=== PATIENT | male | born 1935 | race Caucasian/White ===

== ENCOUNTER 2017-04-23 17:30 | Inpatient (IN) | payer MEDICARE ==
[2017-04-23 18:57] LABS: #Eosinphils 0.1 thou/uL (0.0-0.7); #Lymphocytes 1.6 thou/uL (1.20-3.40); #Monocytes 0.6 thou/uL (0.11-0.59); #Neutrophils 3.8 thou/uL (1.40-6.50); %Basophils 0.1 % (0.0-1.0); %Eosinophils 2.2 % (0.0-10.0); %Lymphocytes 26.3 % (21.0-51.0); %Monocytes 9.6 % (0.0-10.0); %Neutrophils 61.8 % (42.0-75.0); Hemoglobin 13.4 g/dL (14.0-18.0); Mean Corpuscular HGB CONC 32.1 g/dL (32.0-36.0); Mean Platelet Volume 7.8 fL (7.4-10.4); Platelet Count 217 thou/uL (130-400); RBC Distribution Width 12.8 % (11.5-14.5); Red Blood Cell (RBC) Count 4.06 mill/uL (4.70-6.10); White Blood Cell (WBC) Count 6.2 thou/uL (4.8-10.8)
[2017-04-23 19:00] LABS: INR-International Normal Ratio 1.1; PTT 22.1 SEC (22.9-36.1)
--- NOTE | 2017-04-23 19:05 | RAD ---
PORTABLE AP CHEST RADIOGRAPH: Date: 04-23-17 History: Dyspnea. Comparison: 07-12-10 FINDINGS: Pleural and parenchymal changes are seen at each lung base which may be related to small bilateral pl eural effusions and atelectasis. However, patchy densities at each lung could potentially be related to pneumonitis. Cardiac silhouette is stable in size from the prior study but is mildly enlarged. The pulmonary vasculature is within normal limits. Thoracic aorta is ectatic. Degenerative changes are p resent in the spine. There are post-surgical changes of the cervical spine as well as visualized uppe r lumbar spine and involving the left shoulder. There is bilateral acromioclavicular joint osteoarthr itis as well as bilateral glenohumeral osteoarthropathy. IMPRESSION: 1. Small bilateral pleural effusions and atelectasis. Superimposed pneumonia at either lung base coul d not be entirely excluded. POS: [facility]
[2017-04-23 19:21] LABS: CKMB 2.6 ng/mL (0-6.6); Troponin I 0.033 ng/mL (< 0.028)
[2017-04-23 20:52] LABS: ALT (SGPT) 27 U/L (8-55); AST (SGOT) 24 U/L (5-34); Albumin 3.9 g/dL (3.4-4.8); Alkaline Phosphatase 57 U/L (40-150); Anion Gap 13 mmol/L (10-20); BUN (Urea Nitrogen) 29 mg/dL (8.4-25.7); Bilirubin, Total 0.4 mg/dL (0.2-1.2); CK (CPK) 229 U/L (30-200); Calc. Creatinine Clearance 0 mL/min (70-130); Calcium 9.7 mg/dL (7.8-10.44); Carbon Dioxide 30 mmol/L (23-31); Chloride 104 mmol/L (98-107); Estimated GFR-MDRD 59; Globulin 3.1 g/dL (2.4-3.5); Glucose 91 mg/dL (83-110); Potassium 3.6 mmol/L (3.5-5.1); Sodium 143 mmol/L (136-145)
[2017-04-23] MEDS ORDERED: Nitroglycerin 2% Ointment 1 INCH/1 GM Packet ONE (22:18)
[2017-04-23] MEDS ORDERED: Furosemide 40 MG/4 ML VIAL ONE (22:18)
[2017-04-23 22:38] LABS: Troponin I 0.042 ng/mL (< 0.028)
--- NOTE | 2017-04-23 22:49 | ULT ---
LEFT LOWER EXTREMITY VENOUS DOPPLER WITH SPECTRAL ANALYSIS AND COLOR FLOW EVALUATION: Date: 04-23-17 History: Shortness of breath. Left lower extremity edema. FINDINGS: Grayscale, color flow, doppler evaluation, and spectral analysis in a left lower extremity venous str uctures is performed with 2D imaging. The left lower extremity common femoral, superficial femoral, p opliteal, posterior tibial, most proximal greater saphenous and profunda femoral veins were obtained. There is normal lumen compressibility, flow, and augmentation in the visualized deep venous structure s of the left lower extremity. There is a lobulated anechoic structures seen at the posteromedial aspect of the left knee measuring 5.8 cm x 2.7 cm x 3.2 cm. Color flow evaluation demonstrates no flow within the structure. There is m inimal internal echogenic material which may be related to a small amount of debris. 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 There is mild subcutaneous edema seen within the distal left lower extremity. IMPRESSION: 1. No evidence of a DVT involving the visualized deep venous structures left lower extremity. 2. 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 3. Mild subcutaneous edema. POS: [facility]
[2017-04-24 01:39] LABS: Troponin I 0.046 ng/mL (< 0.028)
[2017-04-24 08:38] VITALS: BMI 29.7
[2017-04-24] MEDS ORDERED: Mag-Al 1200 mg/1200 mg/30 ML UDCUP PO PRN (09:27)
[2017-04-24] MEDS ORDERED: Acetaminophen 325 MG TAB PO PRN (09:27)
[2017-04-24] MEDS ORDERED: HYDROcodone/Acetaminophen 5/325 mg Tablet PO PRN ×2 (09:27)
--- NOTE | 2017-04-24 09:46 | HP ---
PRIMARY CARE PHYSICIAN: Aldo Ocampo M.D. CHIEF COMPLAINT: Shortness of breath and progressive weakness. HISTORY OF PRESENT ILLNESS: Mr. Woods is a pleasant 81-year-old gentleman who has a history of hy pertension and elevated cholesterol. He is also a former smoker, but quit about 20 years ago. He sa ys that in the last week, he has gotten progressively short of breath and he says he has been getting weaker as well. He says he is getting to the point where he could barely walk through his house wit hout being short of breath. He says that he had one episode of feeling a little bit dizzy, but he de nies having any pain. He denies chest pain or abdominal pain. He does say that when he lies down at night, it feels like his tonsils are going into his throat and he basically has to sit up in order t o breathe. He also has noted increasing lower extremity edema in the last few weeks as well. His ri ght leg typically is the one that swells the most, but in the last week, his left leg has become more swollen. He does admit to his nose feeling stopped up as well and he believes at times hoarse but t he main reason was primarily shortness of breath. He saw Dr. Ocampo yesterday and he was concerned th at he might have "fluid on his lungs" and then he should come to the ER for evaluation. REVIEW OF SYSTEMS: CONSTITUTIONAL: There have been no fevers, chills, no night sweats, no weight lo ss. HEENT: No headaches, no dizziness, no visual changes, no sore throat, rhinorrhea, neck pain, no adenopathy. PULMONARY: No hemoptysis, no cough, no wheezing. CARDIOVASCULAR: As per the history of present illness. GASTROINTESTINAL: No abdominal pain, no nausea, no vomiting, no change in bowel s. GENITOURINARY: No urinary frequency, hematuria, no hesitancy. NEUROLOGIC: No focal weakness, n umbness, no seizures. PSYCHIATRIC: No symptoms of anxiety or depression. SKIN AND INTEGUMENT: No s kin changes. No rash. 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 PAST SURGICAL HISTORY: He has had a cholecystectomy, 7 back surgeries, right hip surgery, 3 neck christine geries and he continues to get injections in his neck. ALLERGIES: No known drug allergies. SOCIAL HISTORY: He is . He is a former smoker. He used to smoke a pack a day for at least 1 0 years and that was 20 years ago. He occasionally drinks. His , Stefani is his surrogate hebert on maker as well as his daughter, Yann. CODE STATUS: FULL CODE. FAMILY HISTORY: Significant for osteoarthritis. CURRENT MEDICATIONS: Include valsartan/hydrochlorothiazide 320/25 once daily, nabumetone 500 mg twic e a day, [place] 5/325 q.6 as needed, gabapentin 600 mg twice a day, and amitriptyline 100 mg at bedtim e. PHYSICAL EXAMINATION: GENERAL: He is alert and oriented. He appears to be in no acute distress. He is well-developed and well-nourished. VITAL SIGNS: His blood pressure was 134/88, heart rate 100, respiratory rate is 18, and temperature is 97.7. HEENT: Pupils are equal, round, and reactive. Extraocular muscles are intact. Sclerae are anicteri c. Throat no erythema, no exudates. NECK: No adenopathy, no bruits. LUNGS: Clear to auscultation. I did not appreciate any wheezing or rales. He did have some decreas e in air movement. CARDIOVASCULAR: He has normal S1, S2. He had no S3 or S4. He has a grade 2/6 systolic murmur. ABDOMEN: Soft, it is obese, it is nontender, and nondistended. Positive for bowel sounds. No rebou nd, no guarding. EXTREMITIES: He has got 1-2+ pitting edema. NEUROLOGIC: Neurologically, the exam is nonfocal. LABORATORY DATA AND IMAGING DATA: White blood cell count 6.2, hemoglobin 13.4, hematocrit is 41.8, p latelet count was 217. INR is 1.1. Sodium 143, potassium 3.6, chloride is 104, CO2 was 30, BUN of 2 9, creatinine 1.19, glucose is 91. He had proBNP of 329. His EKG was sinus tachycardia, the rate wa s 103. He had frequent PVCs. He had a chest x-ray that had borderline cardiomegaly and he has some increase in pulmonary vascular markings. ASSESSMENT AND PLAN: 1. This is an 81-year-old gentleman that presents with progressive dyspnea on exertion, the etiology of which is unclear. He has risk factors for coronary artery disease and could in fact have either anginal equivalent as his source of dyspnea or he could have congestive heart failure; however, he is also a former smoker and he does admit to some asbestos exposure too and therefore chronic obstructi ve pulmonary disease is a possibility as well. He will be placed in observation. The patient will b e admitted and we will obtain an echocardiogram to assess his ejection fraction as well as his valvul ar structure. We will also send him to have a pulmonary function test and depending on the results o f the above, we will determine his continued course of treatment. 2. With regards to hypertension, we will continue his usual home medications p.r.n. as well. 3. For osteoarthritis, he is on medications for pain. We will continue the [place] as well as his ant i-inflammatory medication and he will be placed on deep venous thrombosis and gastrointestinal prophy laxis.
[2017-04-24] MEDS: Nitroglycerin 2% Ointment 1 INCH/1 GM Packet TOP SCH ×2 (14:52→20:31)
[2017-04-24] MEDS: Gabapentin 300 MG CAP PO SCH (20:21)
[2017-04-24] MEDS: Docusate 100 MG CAP PO SCH (20:21)
[2017-04-24] MEDS: Amitriptyline HCl 100 MG TAB PO SCH (20:21)
[2017-04-24] MEDS: Famotidine 20 MG TAB PO SCH (20:21)
[2017-04-24] MEDS: Nabumetone 500 MG TAB PO SCH (20:21)
[2017-04-25] MEDS: Nitroglycerin 2% Ointment 1 INCH/1 GM Packet TOP SCH ×3 (05:13→21:57)
[2017-04-25 05:57] LABS: #Eosinphils 0.1 thou/uL (0.0-0.7); #Lymphocytes 1.3 thou/uL (1.20-3.40); #Monocytes 0.6 thou/uL (0.11-0.59); #Neutrophils 2.7 thou/uL (1.40-6.50); %Basophils 0.5 % (0.0-1.0); %Eosinophils 2.4 % (0.0-10.0); %Monocytes 12.9 % (0.0-10.0); %Neutrophils 56.1 % (42.0-75.0); Hemoglobin 12.5 g/dL (14.0-18.0); Mean Corpuscular HGB CONC 33.9 g/dL (32.0-36.0); Mean Corpuscular Hemoglobin 34.7 pg (27.0-31.0); Platelet Count 210 thou/uL (130-400); RBC Distribution Width 12.5 % (11.5-14.5); Red Blood Cell (RBC) Count 3.59 mill/uL (4.70-6.10); White Blood Cell (WBC) Count 4.8 thou/uL (4.8-10.8)
[2017-04-25 06:27] LABS: Anion Gap 13 mmol/L (10-20); BUN (Urea Nitrogen) 27 mg/dL (8.4-25.7); Calc. Creatinine Clearance 65 mL/min (70-130); Calcium 8.9 mg/dL (7.8-10.44); Carbon Dioxide 31 mmol/L (23-31); Cardiac Risk 5.2 (Less than 4.5); Chloride 104 mmol/L (98-107); Cholesterol 146 mg/dl (< 200 Desired); Estimated GFR-MDRD 65; Glucose 107 mg/dL (83-110); HDL Cholesterol 28 mg/dL (>60 Neg Risk); LDL Cholesterol, Calculated 103 mg/dL; Potassium 3.3 mmol/L (3.5-5.1); Sodium 145 mmol/L (136-145); Triglycerides 73 mg/dL (Less than 150)
[2017-04-25] MEDS ORDERED: Sodium Chloride 0.9% 500 ML IV SCH (09:15)
[2017-04-25] MEDS: Nabumetone 500 MG TAB PO SCH ×2 (10:00→21:55)
[2017-04-25] MEDS: Gabapentin 300 MG CAP PO SCH ×2 (10:00→21:55)
[2017-04-25] MEDS: Famotidine 20 MG TAB PO SCH ×2 (10:01→21:55)
[2017-04-25] MEDS: Docusate 100 MG CAP PO SCH ×2 (10:10→21:55)
[2017-04-25] MEDS: Enoxaparin Sodium 40 MG/0.4 ML SYRINGE SC SCH (10:10)
[2017-04-25] MEDS: Valsartan 80 MG TAB PO SCH (10:12)
[2017-04-25] MEDS: Hydrochlorothiazide 25 MG TAB PO SCH (10:12)
--- NOTE | 2017-04-25 15:15 | PDOC.PN ---
- Subjective Encounter Start Date: 04/25/17 (n) Encounter Start Time: 15:12 Mr. Woods says he feels better today. He says he just gets short of breath when walking. He is reported to be hypoxic during the night. - Objective Resuscitation Status: Resuscitation Status FULL:Full Resuscitation MAR Reviewed: Yes Vital Signs & Weight: Vital Signs (12 hours) Temp Pulse Resp BP Pulse Ox 04/25/17 11:16 80 103/59 L 97 04/25/17 10:10 97.3 F L 85 20 94 L 04/25/17 08:05 97.3 F L 85 20 89/53 L 94 L 04/25/17 04:20 94 L 04/25/17 04:15 97.9 F 82 18 96/64 86 L Weight Weight 194 lb 1.6 oz I&O: 04/24/17 04/25/17 04/26/17 06:59 06:59 06:59 Intake Total 270 Output Total 1025 Balance -755 Result Diagrams: 04/25/17 04:36 04/25/17 04:36 Phys Exam - Physical Examination HEENT: PERRLA + coarse breath sounds Cardiovascular: RRR, no significant murmur Gastrointestinal: soft, non-tender, positive bowel sounds Musculoskeletal: no edema Dx/Plan (1) Dyspnea Code(s): R06.00 - DYSPNEA, UNSPECIFIED Status: Acute (2) COPD (chronic obstructive pulmonary disease) Status: Acute (3) Hypertension Code(s): I10 - ESSENTIAL (PRIMARY) HYPERTENSION Status: Acute (4) Dyslipidemia Code(s): E78.5 - HYPERLIPIDEMIA, UNSPECIFIED Status: Acute (5) Asbestos exposure Code(s): Z77.090 - CONTACT WITH AND (SUSPECTED) EXPOSURE TO ASBESTOS Status: Acute - Plan * Dyspnea- I suspect this may be multifactoral- His PFT's are consistent with Mild to moderate Obstruction, as well as some restriction as well * Will start him on Dulera, and scheduled Duonebs * Radiology reading on the CXR can be consistent with either pneumonia, or volume overload- will start Levaquin * ? CHF- will await Echo * HTN- blood pressure has been low normal * .
[2017-04-25] MEDS ORDERED: Potassium Chloride 20 MEQ TAB PO SCH (16:00)
[2017-04-25] MEDS: Mometasone/Formoterol 120 PUFF INHALER INH SCH (18:36)
[2017-04-25] MEDS: Amitriptyline HCl 100 MG TAB PO SCH (21:55)
[2017-04-26] MEDS: Nitroglycerin 2% Ointment 1 INCH/1 GM Packet TOP SCH ×2 (07:00→14:53)
[2017-04-26] MEDS: Mometasone/Formoterol 120 PUFF INHALER INH SCH (08:51)
[2017-04-26] MEDS: Hydrochlorothiazide 25 MG TAB PO SCH (09:00)
[2017-04-26] MEDS: Docusate 100 MG CAP PO SCH (10:02)
[2017-04-26] MEDS: Enoxaparin Sodium 40 MG/0.4 ML SYRINGE SC SCH (10:04)
[2017-04-26] MEDS: Famotidine 20 MG TAB PO SCH (10:04)
[2017-04-26] MEDS: Gabapentin 300 MG CAP PO SCH (10:05)
[2017-04-26] MEDS: Valsartan 80 MG TAB PO SCH (10:05)
[2017-04-26] MEDS: Nabumetone 500 MG TAB PO SCH (10:05)
[2017-04-26 16:41] VITALS: BP 123/77; TEMP 97.7
--- NOTE | 2017-04-26 19:45 | DIS ---
DATE OF ADMISSION: 04/23/2017 DATE OF DISCHARGE: 04/26/2017 PRIMARY CARE: Aldo Ocampo M.D. DISCHARGE DISPOSITION: Home. PRIMARY DISCHARGE DIAGNOSES: 1. Chronic obstructive pulmonary disease. 2. Restrictive lung disease. 3. Severe mitral regurgitation. 4. Hypertension. 5. Hypercholesterolemia. 6. Severe osteoarthritis. 7. Degenerative joint disease of the cervical and lumbar spine. 8. Acute respiratory failure secondary to community-acquired pneumonia. DISCHARGE MEDICATIONS: Include Levaquin 500 mg 1 p.o. daily, as well as Dulera or its equivalent 100 /5 one inhalation twice daily, albuterol inhaler 1 puff q.i.d. as needed. Continue valsartan/hydroch lorothiazide 320/25 one tablet daily, [place] 5/325 q.6 hours as needed, gabapentin 600 mg twice a day, amitriptyline 100 mg at bedtime. PROCEDURES DONE DURING ADMISSION: The patient had an echocardiogram in which the ejection fraction w as estimated at 55%-60%. The left atrium was moderately dilated. There is evidence of severe mitral regurgitation as well as severe tricuspid regurgitation. The patient also had a pulmonary function test performed in which the patient's FEV1 to FVC ratio was 62% predicted. The patient's FEV1 was le ss than 60. There was an 11% improvement with bronchodilator therapy. The patient's total lung [place] was 66% predicted. CODE STATUS: FULL CODE. ALLERGIES: No known drug allergies. HOSPITAL COURSE: Mr. Woods is a pleasant 81-year-old gentleman who presented to the emergency [facility] with complaints of progressive shortness of breath as well as weakness. He says that his symptoms had been getting worse over the course of the last few weeks to the point where he could barely walk through the house. He was sent over by his primary care physician for evaluation. He was initially presumed that he could have congestive heart failure. However, his echo demonstrated a normal ejecti on fraction, but it was demonstrated that he had fairly severe mitral regurgitation. This could be c ontributing to his symptoms; however, this is likely to be chronic and the patient was recommended to get an outpatient Cardiology evaluation for this. He also has a history of smoking even though he q uit over 20 years ago and he also has a history of asbestos exposure. His FEV1 to FVC ratio was cons istent with COPD and FEV1 being less than 60% as at least moderate obstruction and he also had a low total lung capacity which would be consistent with some component of restrictive lung disease as well . This could be consistent with his asbestos exposure. He has been placed on a Dulera inhaler as we ll as albuterol inhaler and it is recommended to follow up with Pulmonology as well. The patient's o xygen saturations remained low throughout his hospital stay. This would be consistent with chronic l jessika disease. He will be discharged home on oxygen and again is recommended that he have close Pulmon lorrie followup.
--- NOTE | 2017-05-02 09:17 | PFT ---
PATIENT HISTORY: HEIGHT: 68 IN WEIGHT: 200 SMOKER: QUIT HOW LON YEARS PACKS PER DAY: 1 PRODUCTIVE COUGH: NO LUNG DISEASE: PHYSICIAN INTERPRETATION FINAL REPORT: There is a moderate reduction in expiratory flows of vital capacity without significant improvement following bronchodilator therapy. Total lung capacity decreased. RV is normal. RV/TLC is hyperexpanded and gas transfer is severely reduced. IMPRESSION: mixed obstructive and restrictive pulmonary impairment, with severely reduced diffusing capacity. Ironing Worker: SAM Medical Doctor Md: FRANKO GAMBOA
== END 2017-04-26 16:42 | disposition home or self-care (01) | DRG 193 ==
LOC: ERS 17:30 → ERHOLD 22:42 → 2SW 04-24 08:15 → 2NO 04-25 17:52
PROVIDERS: ADMIT Family Medicine; ATTEND Family Medicine
DX: J18.9 Pneumonia, unspecified organism (principal); J96.01 Acute respiratory failure with hypoxia; J44.0 Chronic obstructive pulmonary disease with (acute) lower respiratory infection; J44.9 Chronic obstructive pulmonary disease, unspecified; I08.1 Rheumatic disorders of both mitral and tricuspid valves; E78.00 Pure hypercholesterolemia, unspecified; I10 Essential (primary) hypertension; Z77.090 Contact with and (suspected) exposure to asbestos; Z87.891 Personal history of nicotine dependence; M47.892 Other spondylosis, cervical region; M47.896 Other spondylosis, lumbar region; J98.4 Other disorders of lung
CPT/HCPCS: 36415; 36416; 71045; 80048; 80053; 80061; 82550; 82553; 83880; 84484; 85025; 85610; 85730; 93005; 93306; 94060; 94640; 94664; 94727; 94729; 94760; 96374; J1650; J1940; J1956; J7620

== ENCOUNTER 2017-08-08 06:08 | Day surgery (SDC) | payer MEDICARE ==
[2017-08-07 13:41] VITALS: BMI 30.4
[2017-08-08 07:29] LABS: Hemoglobin 14.5 g/dL (14.0-18.0); Mean Corpuscular Hemoglobin 32.5 pg (27.0-31.0); Mean Platelet Volume 8.8 fL (7.4-10.4); Platelet Count 139 thou/uL (130-400); RBC Distribution Width 13.9 % (11.5-14.5); Red Blood Cell (RBC) Count 4.46 mill/uL (4.70-6.10); White Blood Cell (WBC) Count 4.9 thou/uL (4.8-10.8)
[2017-08-08] MEDS ORDERED: Diazepam 5 MG TAB ONE (07:33)
[2017-08-08 07:36] LABS: INR-International Normal Ratio 1.2; Prothrombin Time 15.7 SEC (12.0-14.7)
[2017-08-08] MEDS ORDERED: Sodium Chloride 0.9% 1,000 ML IV SCH (07:45)
[2017-08-08] MEDS ORDERED: Diazepam 5 MG TAB PO SCH (07:45)
[2017-08-08 07:55] LABS: ALT (SGPT) 16 U/L (8-55); AST (SGOT) 27 U/L (5-34); Albumin 3.9 g/dL (3.4-4.8); Alkaline Phosphatase 62 U/L (40-150); Anion Gap 16 mmol/L (10-20); BUN (Urea Nitrogen) 33 mg/dL (8.4-25.7); Bilirubin, Total 1.1 mg/dL (0.2-1.2); Calc. Creatinine Clearance 49 mL/min (70-130); Calcium 9.3 mg/dL (7.8-10.44); Carbon Dioxide 29 mmol/L (23-31); Cardiac Risk 3.7 (Less than 4.5); Chloride 102 mmol/L (98-107); Cholesterol 139 mg/dl (< 200 Desired); Estimated GFR-MDRD 45; Globulin 2.9 g/dL (2.4-3.5); Glucose 86 mg/dL (83-110); HDL Cholesterol 38 mg/dL (>60 Neg Risk); LDL Cholesterol, Calculated 89 mg/dL; Potassium 3.7 mmol/L (3.5-5.1); Protein, Total 6.8 g/dL (5.8-8.1); Sodium 143 mmol/L (136-145); Triglycerides 60 mg/dL (Less than 150)
[2017-08-08] MEDS ORDERED: Iopamidol 370 76% 100 ML VIAL ONE (10:55)
--- NOTE | 2017-08-08 11:38 | EKG ---
Test Reason : PREOP Blood Pressure : / mmHG Vent. Rate : 093 BPM Atrial Rate : 093 BPM P-R Int : 194 ms QRS Dur : 106 ms QT Int : 386 ms P-R-T Axes : 069 062 011 degrees QTc Int : 479 ms Sinus rhythm with Premature atrial complexes and PVC's Abnormal ECG When compared with ECG of 23-APR-2017 18:28, Premature ventricular complexes are no longer Present Abberant conduction is now Present Confirmed by DR. Juliana MOURA (3) on 08/08/2017 11:38:14 AM Referred By: GAEL Confirmed By:DR. Juliana MOURA
[2017-08-08] MEDS ORDERED: Midazolam HCl 2 mg/2 ml Vial ONE (11:46)
[2017-08-08] MEDS ORDERED: Fentanyl 100 MCG/2 ML VIAL ONE (11:46)
[2017-08-08] MEDS ORDERED: Lidocaine 1% (PF) 30 ML VIAL ONE (11:47)
[2017-08-08] MEDS ORDERED: Nitroglycerin 100MG/250ML BOT 250 ML ONE (13:41)
--- NOTE | 2017-08-08 18:33 | CON ---
DATE OF CONSULTATION: 08/08/2017 HISTORY OF PRESENT ILLNESS: This is an 81-year-old gentleman with several month history of swelling in his legs and dyspnea on exertion. He was admitted to the hospital in April of this year for 3 d ays where pulmonary functions test showed severe diffusion abnormality. He had a cardiac echo showin g severe mitral regurgitation with normal left ventricular systolic function. He was referred to Dr. Vines for his dyspnea and underwent cardiac catheterization today showing high-grade LAD lesion with right to left collaterals already being present. He had moderate circumflex disease and mild to moderate right coronary disease with potential targets being the LAD, diagonal, and possibly OM. PAST MEDICAL HISTORY: Significant for hypertension. PAST SURGICAL HISTORY: Includes, multiple lumbar spine surgeries as well as several cervical spine s urgeries. 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 He currently lives in [place] on a small acreage and owns a trailer park as well. He is and accompanied by his . He does have a smoking history, but none in 30 years. He does not use alcohol. His a ctivity level was markedly diminished due to his dyspnea on exertion. REVIEW OF SYSTEMS: Besides dyspnea includes lower extremity edema that is severe at times. He also has chronic kidney disease stage 3 with creatinine of about 1.5. HOME MEDICATIONS: Include nabumetone 500 mg b.i.d., Lasix 20 mg day, amlodipine 5 mg a day, aspirin 81 a day, valsartan 320 1/4 tablet daily, amitriptyline 100 mg at bedtime, gabapentin 300 mg daily fo r leg discomfort, Soma compound 350 mg 3 times a day and at bedtime, Zaroxolyn 2.5 a day, Lasix 40 a day instead of 20 a day. He is also on isosorbide ER 30 daily. PHYSICAL EXAMINATION: GENERAL: Elderly gentleman in no distress. Mildly dyspneic during conversation. VITAL SIGNS: He has a recorded height of 65 inches and recorded weight of 200 pounds. NECK: Examination reveals no carotid bruits. CARDIAC: He has rather harsh systolic murmur over the mitral area. He has occasional ectopic beat. ABDOMEN: Soft and nontender. No masses, no aneurysm, no organomegaly. EXTREMITIES: He has 1-2+ edema in both lower extremities with some skin changes of chronic venous in sufficiency, but no gross varicosities. He has palpable femoral and popliteal pulses, but I am unabl e to palpate pedal pulses. ASSESSMENT AND PLAN: The patient does have coronary artery disease and could have a graft to his LAD , possibly diagonal or OM, but I think his dyspnea is more likely related to underlying lung disease with significant diffusion problem noted on PFTs in April. He also had an echo in April that I h ave reviewed, difficult to assess, but based on his cardiac murmur, I would be concerned about severe mitral regurgitation. I will arrange for a repeat echo in Dr. Vines's office and office visit w ith one of the pulmonologists to give their opinion as to severity of his underlying pulmonary diseas e and how it may affect major cardiac surgery or whether his dyspnea is primarily respiratory and car diac surgery is not likely to help his dyspnea.
== END 2017-08-08 18:20 | disposition home or self-care (01) ==
LOC: CCL 06:08
PROVIDERS: ATTEND Internal Medicine Cardiovascular Disease
PROC: B2111ZZ Fluoroscopy of Multiple Coronary Arteries using Low Osmolar Contrast (ICD-10-PCS; principal; 2017-08-08)
PROC: B2151ZZ Fluoroscopy of Left Heart using Low Osmolar Contrast (ICD-10-PCS; 2017-08-08)
DX: I25.10 Atherosclerotic heart disease of native coronary artery without angina pectoris (principal); I12.9 Hypertensive chronic kidney disease with stage 1 through stage 4 chronic kidney disease, or unspecified chronic kidney disease; N18.3 Chronic kidney disease, stage 3 (moderate); Z87.891 Personal history of nicotine dependence; Z79.82 Long term (current) use of aspirin; Z79.899 Other long term (current) drug therapy
CPT/HCPCS: 76942; 80053; 80061; 82565; 85027; 85610; 85730; 93005; 93458; C1760; C1769; 36415; 93010; 99152; 99153; J1644; J2001; J2250; J3010

== ENCOUNTER 2017-08-16 10:57 | Outpatient (CLI) | payer MEDICARE ==
--- NOTE | 2017-08-16 12:00 | RAD ---
CHEST 2 VIEWS: HISTORY: Dyspnea. COMPARISON: 04/23/17. FINDINGS: Cardiac silhouette is enlarged. Pulmonary vasculature is less engorged than on the previous study. Patchy bibasilar infiltrates are less pronounced. Pleural fluid has not significantly changed. medi astinum is midline with postoperative changes of cervical spine. No evidence of pneumothorax. IMPRESSION: Slight interval improvement in radiographic appearance of pulmonary edema. A small amount of pleural fluid remains. POS: [facility]
== END 2017-08-16 10:58 | disposition home or self-care (01) ==
LOC: RAD 10:57
PROVIDERS: ATTEND Internal Medicine
DX: R06.00 Dyspnea, unspecified (principal)
CPT/HCPCS: 71046

== ENCOUNTER 2017-09-09 20:30 | Outpatient (CLI) | payer MEDICARE | END 2017-09-09 20:31 | disposition home or self-care (01) | LOC: SLEEPLAB 20:30 | PROVIDERS: ATTEND Internal Medicine | DX: G47.33 Obstructive sleep apnea (adult) (pediatric) (principal); G47.00 Insomnia, unspecified; K21.9 Gastro-esophageal reflux disease without esophagitis; R35.1 Nocturia; R06.83 Snoring; I11.0 Hypertensive heart disease with heart failure; I50.9 Heart failure, unspecified; I25.10 Atherosclerotic heart disease of native coronary artery without angina pectoris | CPT/HCPCS: 95811 ==

== ENCOUNTER 2017-09-24 17:42 | Inpatient (IN) | payer MEDICARE ==
[2017-09-24 18:34] LABS: #Eosinphils 0.1 thou/uL (0.0-0.7); #Lymphocytes 1.9 thou/uL (1.20-3.40); #Monocytes 0.5 thou/uL (0.11-0.59); #Neutrophils 2.4 thou/uL (1.40-6.50); %Basophils 0.9 % (0.0-1.0); %Eosinophils 2.1 % (0.0-10.0); %Lymphocytes 38.8 % (21.0-51.0); %Monocytes 9.3 % (0.0-10.0); %Neutrophils 48.8 % (42.0-75.0); Hemoglobin 15.1 g/dL (14.0-18.0); Mean Corpuscular HGB CONC 32.6 g/dL (32.0-36.0); Mean Corpuscular Hemoglobin 33.4 pg (27.0-31.0); Mean Platelet Volume 9.7 fL (7.4-10.4); Platelet Count 96 thou/uL (130-400); RBC Distribution Width 13.5 % (11.5-14.5); Red Blood Cell (RBC) Count 4.51 mill/uL (4.70-6.10); White Blood Cell (WBC) Count 4.9 thou/uL (4.8-10.8)
[2017-09-24 18:35] LABS: ALT (SGPT) 15 U/L (8-55); AST (SGOT) 31 U/L (5-34); Albumin 3.7 g/dL (3.4-4.8); Alkaline Phosphatase 80 U/L (40-150); Anion Gap 18 mmol/L (10-20); BUN (Urea Nitrogen) 30 mg/dL (8.4-25.7); Bilirubin, Total 1.2 mg/dL (0.2-1.2); CK (CPK) 239 U/L (30-200); Calc. Creatinine Clearance 0 mL/min (70-130); Calcium 9.3 mg/dL (7.8-10.44); Carbon Dioxide 31 mmol/L (23-31); Chloride 96 mmol/L (98-107); Estimated GFR-MDRD 44; Globulin 3.5 g/dL (2.4-3.5); Glucose 124 mg/dL (83-110); Potassium 4.4 mmol/L (3.5-5.1); Protein, Total 7.2 g/dL (5.8-8.1); Sodium 141 mmol/L (136-145)
[2017-09-24 18:38] LABS: Troponin I 0.017 ng/mL (< 0.028)
[2017-09-24 18:45] LABS: Large Platelets SLIGHT; MDiff Complete? YES; Macrocytosis SLIGHT = 6-15 cells (100X) (0-5/hpf); PLT Morphology Comment Appears Decreased
[2017-09-24] MEDS ORDERED: Nitroglycerin 2% Ointment 1 INCH/1 GM Packet ONE (19:14)
[2017-09-24] MEDS ORDERED: Furosemide 40 MG/4 ML VIAL ONE (19:14)
--- NOTE | 2017-09-24 20:34 | RAD ---
RADIOGRAPH CHEST 1 VIEW: Date: 09/24/2017 Time: 6:16 p.m. HISTORY: An 82-year-old male with dyspnea. COMPARISON: 08/16/2017 FINDINGS: The cardiomegaly now appears worse, but that could be due to shallower inspiration on the current luis dy. Again demonstrated is the blunting of the lateral costophrenic angles bilaterally. There is new development of partial silhouetting of the left hemidiaphragm. The lung bases appear more hazy but are difficult to evaluate without a lateral view. No mel pulmonary alveolar edema in the upper lob es. No pneumothorax. IMPRESSION: 1. Cardiomegaly. 2. Bilateral pleural effusions. 3. Interval worsening of aeration of the left lower lobe, at least mild. NAZ [] POS: [facility]
[2017-09-24] MEDS ORDERED: HYDROcodone/Acetaminophen 5/325 mg Tablet PO PRN (21:45)
[2017-09-24] MEDS ORDERED: Acetaminophen 325 MG TAB PO PRN (21:45)
[2017-09-24] MEDS: Amitriptyline HCl 100 MG TAB PO SCH (22:54)
[2017-09-24] MEDS: Gabapentin 300 MG CAP PO SCH (22:54)
--- NOTE | 2017-09-24 23:12 | HP ---
DATE OF ADMISSION: 09/24/2017 CHIEF COMPLAINT: Shortness of breath. HISTORY OF PRESENT ILLNESS: This is an 82-year-old white male with a known history of congestive hea rt failure diagnosed many months ago was on high dose of Lasix 40 in the morning and 80 in the night and patient has been having persistent retention of the fluid in lower and upper extremities and also being very orthopneic. He saw Dr. Vines in the past and also he sees Dr. Guerrero occasionally, bu t otherwise he has known history of hypertension and hyperlipidemia. Patient was initially given Las ix in the ER, which he did respond. He remained on room air oxygen at this time. He has known histo ry of high blood pressure, which is well controlled at this time. Otherwise, he has history of degen erative arthritis. Patient is stable and is on room air. He denies having any chest pain, no nausea , no vomiting, no diarrhea, no constipation. PAST MEDICAL HISTORY: 1. Hypertension. 2. Hypercholesterolemia. 3. Severe osteoarthritis, degenerative joint disease, and cervical and lumbar spine. PAST SURGICAL HISTORY: History of cholecystectomy, 7 back surgeries and right hip surgery and three neck surgeries. ALLERGIES: No known drug allergies. SOCIAL HISTORY: Patient is , is a former smoker, used to smoke one pack a day. He occasional ly drinks. His is a surrogate decision maker as well as his daughter Pancho. Code status has been discussed and the patient remains FULL CODE at this time. REVIEW OF SYSTEMS: All 12 systems are reviewed with the patient thoroughly and found to be negative at this time: Constitutional: Weight loss or gain, sense of well-being, ability to conduct usual ac tivities, exercise tolerance. Skin/Breast: Rash, itching, changes in hair growth or loss, nail chappell ges, breast lumps, tenderness, swelling, nipple discharge. Eyes: Vision, double vision, tearing, bl ind spots, pain. ENT/Mouth: Headaches (location, time of onset, duration, precipitating factors), v ertigo, lightheadedness, injury. Vision, double vision, tearing, blind spots, pain, nose bleeding, co lds, obstruction, discharge, dental difficulties, gingival bleeding, dentures, neck stiffness, pain, tenderness, masses in thyroid or other areas. Cardiovascular: Precordial pain, substernal distress, palpitations, syncope, dyspnea on exertion, orthopnea, nocturnal paroxysmal dyspnea, edema, cyanosis , hypertension, heart murmurs, varicosities, phlebitis, claudication. Respiratory: Pain, shortness of breath, wheezing, stridor, cough, hemoptysis, fever or night sweats. Gastrointestinal: Poor appe tite, dysphagia, indigestion, abdominal pain, heartburn, eructation, nausea, vomiting, hematemesis, j aundice, constipation, or diarrhea, abnormal stools (trang-colored, tarry, bloody, greasy, foul smelli ng), flatulence, hemorrhoids, recent changes in bowel habits. Genitourinary: Urgency, frequency, d ysuria, nocturia, hematuria, polyuria, oliguria, unusual (or change in) color of urine, stones, hesit tammie, change in size of stream, dribbling, acute retention or incontinence, libido, potency. Musculo skeletal: Pain, swelling, redness or heat of muscles or joints, limitation, of motion, muscular weak ness, atrophy, cramps. Neurologic/Psychiatric: Convulsions, paralyses, tremor, incoordination, pare sthesias, difficulties with memory of speech, sensory or motor disturbances, or muscular coordination (ataxia, tremor), emotional problems, anxiety, depression, previous psychiatric care, unusual percep tions, hallucinations. Allergy/Immunologic: Skin rash, anemia, bleeding tendency, polydipsia, polyu christopher, intolerance to heat or cold. HOME MEDICATIONS: Lasix 40 mg in the morning and 80 mg in the evening. Nabumetone 500 mg p.o. twice a day, amitriptyline 50 mg p.o. at bedtime, gabapentin 600 mg p.o. b.i.d., isosorbide mononitrate 30 mg p.o. daily. PHYSICAL EXAMINATION: VITAL SIGNS: Blood pressures are 129/87, heart rate is 94, respiratory rate is 18, saturation 100% o n room air. GENERAL: The patient is moderately built, moderately nourished. He does not appear to be in acute d istress. CARDIOVASCULAR: S1, S2 normal. No murmurs, rubs, or gallops. LUNGS: Bilateral air entry was equal. Crackles were noted in the lower bases. ABDOMEN: Distended, nontender, no guarding, no rebound tenderness. Edema was noted under the skin. EXTREMITIES: Has a pitting edema of the lower extremities. No calf tenderness. MUSCULOSKELETAL: No joint tenderness, no joint swelling. SKIN: No cyanosis, no erythema, no rash, no pallor. Cranial nerve examination II through XII are in tact. No focal deficits were noted. NECK: No thyromegaly, JVD was noted. PSYCHIATRIC: No signs of suicidal ideation. No signs of john was noted. LABORATORY DATA: WBC of 4.9, hemoglobin is 15.1, hematocrit is 46.1, platelets are 96. Sodium 141, potassium 4.4, chloride is 96, bicarbonate is 31, BUN is 30, creatinine 1.51, blood sugar 124. BNP 1 401. ASSESSMENT AND PLAN: 1. Acute congestive heart failure, diastolic dysfunction. 2. Hypertension, well controlled. 3. Acute kidney injury, likely cardiorenal syndrome. 4. Severe degenerative arthritis. 5. Hyperlipidemia. PLAN: 1. Plan is to closely monitor this patient on the tele and will start him on IV Lasix of 40 mg IV b. i.d. and we will need to consult Cardiology. Patient has not been responding well to high doses of L asix. May need to be changed to torsemide at discharge. Patient is not on lisinopril. We will add lisinopril low dose 2.5 mg and also start him on beta-megan 3.125 mg b.i.d. We will do a 2D echo t o look for any evidence of wall motion abnormality. He did have irregular rhythm with PVCs noted on the telemetry, but no evidence of atrial fibrillation was noted at this time. 2. If patient has well controlled blood pressures, we will closely monitor. Continue the home medic ations. 3. Hyperlipidemia. We will start the patient on statin. Patient is not on any statin at this time. 4. We will check for the lipid profile. 5. Patient has mild renal dysfunction likely cardiorenal syndrome. We will continue with IV Lasix a t this time. We will closely monitor for any worsening renal functions. 6. Deep venous thrombosis prophylaxis, Lovenox 30 mg. I have spent 75 minutes with this patient.
[2017-09-25 05:04] LABS: Anion Gap 12 mmol/L (10-20); BUN (Urea Nitrogen) 29 mg/dL (8.4-25.7); Calc. Creatinine Clearance 57 mL/min (70-130); Calcium 8.9 mg/dL (7.8-10.44); Carbon Dioxide 37 mmol/L (23-31); Chloride 97 mmol/L (98-107); Estimated GFR-MDRD 50; Glucose 88 mg/dL (83-110); Potassium 3.6 mmol/L (3.5-5.1); Sodium 142 mmol/L (136-145)
[2017-09-25 05:14] LABS: #Eosinphils 0.1 thou/uL (0.0-0.7); #Lymphocytes 1.5 thou/uL (1.20-3.40); #Monocytes 0.5 thou/uL (0.11-0.59); #Neutrophils 1.9 thou/uL (1.40-6.50); %Basophils 0.6 % (0.0-1.0); %Lymphocytes 37.4 % (21.0-51.0); %Neutrophils 47.1 % (42.0-75.0); Hemoglobin 13.6 g/dL (14.0-18.0); Mean Corpuscular HGB CONC 32.4 g/dL (32.0-36.0); Mean Corpuscular Hemoglobin 33.3 pg (27.0-31.0); Mean Platelet Volume 9.3 fL (7.4-10.4); Platelet Count 82 thou/uL (130-400); RBC Distribution Width 13.3 % (11.5-14.5); Red Blood Cell (RBC) Count 4.08 mill/uL (4.70-6.10); White Blood Cell (WBC) Count 3.9 thou/uL (4.8-10.8)
[2017-09-25] MEDS: Furosemide 40 MG/4 ML VIAL SLOW IVP SCH ×2 (05:45→14:29)
[2017-09-25] MEDS: Enoxaparin Sodium 30 MG/0.3 ML SYRINGE SC SCH (09:19)
[2017-09-25] MEDS: Docusate 100 MG CAP PO SCH ×2 (09:26→20:50)
[2017-09-25] MEDS: Carvedilol 3.125 MG TAB PO SCH ×2 (09:26→17:27)
[2017-09-25] MEDS: Lisinopril 2.5 MG TAB PO SCH (09:27)
[2017-09-25] MEDS: Gabapentin 300 MG CAP PO SCH ×2 (09:27→20:50)
[2017-09-25] MEDS: Famotidine 20 MG TAB PO SCH ×2 (09:27→20:49)
--- NOTE | 2017-09-25 18:42 | CON ---
DATE OF CONSULTATION: 09/25/2017 REASON FOR CONSULTATION: Acute heart failure. HISTORY OF PRESENT ILLNESS: Mr. Woods is a very pleasant 82-year-old gentleman. I have seen and evaluated in the past. He has a history of severe CAD to the LAD in addition to moderate to severe M R. This is in eccentric pattern. He also has COPD. He recently presented with increased lower extr emity edema and shortness of breath. He states he is feeling better after diuresis. He is currently on Lasix 40 mg IV b.i.d. PAST MEDICAL HISTORY: As above including hypertension, previous tobacco abuse. PAST SURGICAL HISTORY: Back surgery, neck surgery, cholecystectomy, right hip surgery. ALLERGIES: None. SOCIAL HISTORY: No current tobacco or alcohol use. HOME MEDICATIONS: Lasix, amlodipine, aspirin, valsartan, amitriptyline, gabapentin, metolazone, Lasi x, and isosorbide. REVIEW OF SYSTEMS: Ten-point review of systems reviewed as above, otherwise negative. PHYSICAL EXAMINATION: VITAL SIGNS: Blood pressure 127/81, pulse 90, temperature 97.6. GENERAL: Patient is a pleasant male who is in no acute distress. The patient appears his stated age . NEUROLOGIC: The patient is alert and oriented times 3 with no focal neurologic deficits. HEENT: Sclerae without icterus. Mouth has moist mucous membranes with normal pallor. NECK: No JVD. Carotid upstroke brisk. No bruits bilaterally. LUNGS: Crackles noted bilaterally. BACK: No scoliosis or kyphosis. CARDIAC: Regular rate and rhythm with normal S1 and S2. No S3 or S4 noted. No significant rubs, murmurs, thrills, or gallops noted throughout the precordium. PMI is not displaced. There is no parasternal heave. ABDOMEN: Soft, nontender, nondistended. No peritoneal signs present. No hepatosplenomegaly. No abnormal striae. EXTREMITIES: 2+ femoral and 2+ dorsalis pedis pulses. No cyanosis, clubbing, or edema. SKIN: No gross abnormalities. PERTINENT LABORATORY: Hemoglobin 13.9, hematocrit 41.9, platelet count of 82,000. IMPRESSION: 1. Acute onset shortness of breath. 2. Severe coronary artery disease. 3. Moderate to severe mitral regurgitation. 4. Chronic obstructive pulmonary disease. RECOMMENDATIONS: Mr. Woods current options are somewhat limited. I discussed this case with Dr. Aron Guerrero. I state he has not felt to be an appropriate candidate for mitral valve repair or replace ment in addition to bypass surgery. We would rather seek an opinion in [place]. Mr. Sree Woods is unsure whether he should proceed with some type of operation. The only thing I could offer him in this area would be to proceed with stent implantation to the LAD to see if his symptoms improve. At this point, we would continue with IV Lasix and try and diurese Mr. Woods. His platelet count is low which is somewhat concerning. His creatinine is also mildly elevated. We will continue to zoya wallace closely with you.
--- NOTE | 2017-09-25 20:14 | PDOC.PN ---
- Subjective Encounter Start Date: 09/25/17 Encounter Start Time: 19:45 Subjective: f/u for diastolic CHF exacerbation on IV Lasix. EF noted 55% in . -: Severe MR noted. c/o persistent LE edema but SOB improved. - Objective Resuscitation Status: Resuscitation Status FULL:Full Resuscitation MAR Reviewed: Yes Vital Signs & Weight: Vital Signs (12 hours) Temp Pulse Pulse Pulse Resp BP BP 09/25/17 19:35 97.0 F L 82 18 09/25/17 17:32 97.6 F 90 16 09/25/17 12:00 09/25/17 10:11 97.8 F 88 16 09/25/17 09:27 83 124/83 09/25/17 09:05 89 97 123/83 09/25/17 08:38 89 90 127/80 BP BP Pulse Ox Pulse Ox Pulse Ox 09/25/17 19:35 117/78 92 L 09/25/17 17:32 127/81 96 09/25/17 12:00 98 09/25/17 10:11 104/66 98 09/25/17 09:27 09/25/17 09:05 136/86 09/25/17 08:38 124/81 94 L 96 Weight Admit Weight 213 lb 3.2 oz Weight 213 lb 3.2 oz I&O: 09/24/17 09/25/17 09/26/17 06:59 06:59 06:59 Intake Total 200 240 Output Total 350 1130 Balance -150 -890 Result Diagrams: 09/25/17 04:27 09/25/17 04:27 Additional Labs: Laboratory Tests 09/24/17 09/24/17 09/25/17 18:07 18:07 04:27 Creatinine 1.51 H Creatine Kinase 239 H B-Natriuretic Peptide 1401.8 H 2121.0 H Radiology Reviewed by me: Yes (2D echo - 04/26 - EF 55%, severe MR/TR) EKG Reviewed by me: Yes (Tele - SR) Phys Exam - Physical Examination Constitutional: NAD HEENT: PERRLA, sclera anicteric, oral pharynx no lesions Neck: no nodes, no JVD, supple, full ROM bibasilar crackles Respiratory: no wheezing, no rales, no rhonchi II/ DERRICK LUSB Cardiovascular: RRR, no rub, gallop Gastrointestinal: soft, non-tender, no distention, positive bowel sounds bilat LE edema to knees Musculoskeletal: pulses present Neurological: non-focal, normal sensation, moves all 4 limbs Psychiatric: normal affect, A&O x 3 Skin: no rash, normal turgor, cap refill <2 seconds Dx/Plan (1) Acute on chronic diastolic (congestive) heart failure Code(s): I50.33 - ACUTE ON CHRONIC DIASTOLIC (CONGESTIVE) HEART FAILURE Status : Acute Comment: EF 55% by echo 04/26, continue Lasix 40mg IV q12h (2) Dyspnea Code(s): R06.00 - DYSPNEA, UNSPECIFIED Status: Chronic Comment: Multifactorial including COPD and CHF with severe MR/TR, supportive mgmt (3) CKD (chronic kidney disease), stage III Code(s): N18.3 - CHRONIC KIDNEY DISEASE, STAGE 3 (MODERATE) Status: Chronic Comment: Avoid nephrotoxic meds and limit contrast exposure, likely contributing to LE edema (4) CAD (coronary artery disease) Code(s): I25.10 - ATHSCL HEART DISEASE OF [place] CORONARY ARTERY W/O ANG PCTRS Status: Chronic Comment: Cardiology discussing all options including revascularization, maximize medical therapy (5) COPD (chronic obstructive pulmonary disease) Status: Chronic Comment: No exacerbation, continue supportive mgmt - Plan director social service, respiratory therapy, out of bed/ambulate Stable overall -: Continue Lasix 40mg IV q12h -: Continue Coreg, Lisinopril -: Continue Isosorbide -: Monitor daily weights and I/O's * AM lab: BMP
[2017-09-25] MEDS: Amitriptyline HCl 100 MG TAB PO SCH (20:50)
[2017-09-25] MEDS: Atorvastatin Calcium 40 MG TAB PO SCH (20:51)
[2017-09-26 04:59] LABS: Anion Gap 16 mmol/L (10-20); BUN (Urea Nitrogen) 33 mg/dL (8.4-25.7); Calc. Creatinine Clearance 53 mL/min (70-130); Carbon Dioxide 34 mmol/L (23-31); Chloride 97 mmol/L (98-107); Estimated GFR-MDRD 46; Glucose 89 mg/dL (83-110); Potassium 3.6 mmol/L (3.5-5.1); Sodium 143 mmol/L (136-145)
[2017-09-26] MEDS: Furosemide 40 MG/4 ML VIAL SLOW IVP SCH ×2 (05:55→14:11)
[2017-09-26] MEDS: Carvedilol 3.125 MG TAB PO SCH ×2 (08:21→16:04)
[2017-09-26] MEDS: Docusate 100 MG CAP PO SCH ×2 (08:21→21:28)
[2017-09-26] MEDS: Lisinopril 2.5 MG TAB PO SCH (08:21)
[2017-09-26] MEDS: Gabapentin 300 MG CAP PO SCH ×2 (08:22→21:27)
[2017-09-26] MEDS: Enoxaparin Sodium 30 MG/0.3 ML SYRINGE SC SCH (08:22)
[2017-09-26] MEDS: Famotidine 20 MG TAB PO SCH ×2 (08:22→21:27)
[2017-09-26] MEDS ORDERED: Communication Order-Pharmacy FS SCH (13:30)
--- NOTE | 2017-09-26 13:37 | PRG ---
DATE OF SERVICE: 09/26/2017 Mr. Woods did well. He has diuresed. His creatinine is slightly elevated at 1.45. It was 1.35. He states he has less shortness of breath. PHYSICAL EXAMINATION: VITAL SIGNS: Blood pressure 101/62, pulse 60, temperature 97.6. GENERAL: Patient is a pleasant male who is in no acute distress. The patient appears his stated age. NEUROLOGIC: The patient is alert and oriented times 3 with no focal neurologic deficits. HEENT: Sclerae without icterus. Mouth has moist mucous membranes with normal pallor. NECK: No JVD. Carotid upstroke brisk. No bruits bilaterally. LUNGS: Mild crackles noted bilaterally. BACK: No scoliosis or kyphosis. CARDIAC: Regular rate and rhythm with a 2/6 systolic ejection murmur, heard best in the lower left s ternal border. ABDOMEN: Soft, nontender, nondistended. No peritoneal signs present. No hepatosplenomegaly. No abn ormal striae. EXTREMITIES: 2+ pitting edema. SKIN: No gross abnormalities. PERTINENT LABORATORY: As above including a hemoglobin of 13.6. IMPRESSION: 1. Acute on chronic diastolic heart failure. 2. Severe mitral regurgitation. 3. Severe coronary artery disease. RECOMMENDATIONS: Multiple options again are presented to Mr. Woods. Could proceed with stent imp lantation of the LAD and reassess his symptoms. Could also proceed with outpatient workup for MURPHY p hero mitral valve repair. He does have significant pulmonary disease which would increase his risk. At this point, after discussing the options, he has opted for proceeding with a stent placement to th e LAD. This can certainly improve his symptoms, but not guaranteed. I discussed the procedure in fu ll detail with Mr. Woods. The risks include, but are not limited to the following: , strok e, IL, need for emergency surgery, loss of limb, bleeding, and infection, as well as a reaction to th e dye causing kidney failure and needing long-term dialysis. I also discussed the risks of PCI to in clude all of the above including coronary dissection and perforation in addition to acute stent throm bosis and restenosis. All questions about the procedure were answered. Given the above, the patient agreed to proceed with coronary angiography and possible PCI. All questions were answered. I also discussed drug coated versus nondrug coated stent placement. Th ere are no contraindications to proceed if needed. He does have neck injections which he states he c an put off for another 6 months.
[2017-09-26] MEDS: Sodium Chloride 0.9% 1,000 ML IV SCH (19:24)
[2017-09-26] MEDS: Amitriptyline HCl 100 MG TAB PO SCH (21:27)
[2017-09-26] MEDS: Atorvastatin Calcium 40 MG TAB PO SCH (21:28)
[2017-09-27] MEDS: Sodium Chloride 0.9% 1,000 ML IV SCH (05:47)
[2017-09-27] MEDS: Furosemide 40 MG/4 ML VIAL SLOW IVP SCH ×2 (05:47→13:18)
[2017-09-27] MEDS: Lisinopril 2.5 MG TAB PO SCH (05:48)
[2017-09-27] MEDS: Carvedilol 3.125 MG TAB PO SCH ×2 (05:49→16:12)
[2017-09-27] MEDS ORDERED: Lidocaine 1% (PF) 30 ML VIAL ONE (06:43)
[2017-09-27 08:10] LABS: #Eosinphils 0.1 thou/uL (0.0-0.7); #Lymphocytes 1.3 thou/uL (1.20-3.40); #Monocytes 0.5 thou/uL (0.11-0.59); #Neutrophils 1.7 thou/uL (1.40-6.50); %Basophils 1.2 % (0.0-1.0); %Eosinophils 3.2 % (0.0-10.0); %Lymphocytes 35.1 % (21.0-51.0); %Monocytes 14.5 % (0.0-10.0); Anion Gap 15 mmol/L (10-20); BUN (Urea Nitrogen) 35 mg/dL (8.4-25.7); Calc. Creatinine Clearance 43 mL/min (70-130); Calcium 9.1 mg/dL (7.8-10.44); Carbon Dioxide 35 mmol/L (23-31); Chloride 96 mmol/L (98-107); Estimated GFR-MDRD 41; Glucose 86 mg/dL (83-110); Hemoglobin 14.5 g/dL (14.0-18.0); MDiff Complete? YES; Macrocytosis SLIGHT = 6-15 cells (100X) (0-5/hpf); Mean Corpuscular HGB CONC 31.8 g/dL (32.0-36.0); Mean Corpuscular Hemoglobin 33.2 pg (27.0-31.0); Mean Platelet Volume 9.6 fL (7.4-10.4); PLT Morphology Comment Appears Decreased; Platelet Count 80 thou/uL (130-400); Potassium 3.5 mmol/L (3.5-5.1); RBC Distribution Width 13.5 % (11.5-14.5); Red Blood Cell (RBC) Count 4.37 mill/uL (4.70-6.10); Sodium 142 mmol/L (136-145); White Blood Cell (WBC) Count 3.6 thou/uL (4.8-10.8)
[2017-09-27 08:23] VITALS: BMI 29.2
[2017-09-27] MEDS: Famotidine 20 MG TAB PO SCH (09:00)
[2017-09-27] MEDS: Gabapentin 300 MG CAP PO SCH ×2 (09:00→20:17)
[2017-09-27] MEDS: Docusate 100 MG CAP PO SCH ×2 (09:00→20:17)
--- NOTE | 2017-09-27 10:05 | PRG ---
DATE OF SERVICE: 09/27/2017 HISTORY OF PRESENT ILLNESS: Mr. Woods has no significant changes overnight. I did review his echo. He appears to have severe wide open MR. This is likely responsible for his c urrent symptoms. PHYSICAL EXAMINATION: VITAL SIGNS: Blood pressure 110/77, pulse 69, temperature 97.6. GENERAL: Patient is a pleasant male who is in no acute distress. The patient appears his stated age. NEUROLOGIC: The patient is alert and oriented times 3 with no focal neurologic deficits. HEENT: Sclerae without icterus. Mouth has moist mucous membranes with normal pallor. NECK: No JVD. Carotid upstroke brisk. No bruits bilaterally. LUNGS: Crackles noted bilaterally. BACK: No scoliosis or kyphosis. CARDIAC: Regular rate and rhythm with normal S1 and S2. No S3 or S4 noted. No significant rubs, mur murs, thrills, or gallops noted throughout the precordium. PMI is not displaced. There is no parast ernal heave. ABDOMEN: Soft, nontender, nondistended. No peritoneal signs present. No hepatosplenomegaly. No abn ormal striae. EXTREMITIES: Lower extremity edema noted bilaterally. SKIN: No gross abnormalities. PERTINENT LABS: Hemoglobin 14.5, creatinine 1.62 which is up from 1.45. IMPRESSION: 1. Shortness of breath. 2. Acute on chronic diastolic heart failure. 3. Severe mitral regurgitation. 4. Severe coronary artery disease. RECOMMENDATIONS: Prior to proceeding with coronary angiography this morning I had a long discussion with Mr. Woods as well as his . His previous echo in April was of poor quality. The echo p erformed yesterday was of good quality. It did reveal wide open MR likely responsive for his current symptoms. At this point, I discussed several options including mitral valve repair and bypass versu s stent placement alone. I did state I did not feel stent placement to the LAD would improve his sym ptoms. The only reason I would proceed with a stent placement is if he decided not to proceed with m itral valve repair or replacement. This cannot be done at this institution. He states he would like to have an opinion from a surgeon on the above. Therefore, we will postpone proceeding with angiogr aphy. We will try and diurese. We will try and set up an outpatient appointment next week. If we a re not able to diurese Mr. Woods and he continues to have issues with increasing creatinine, I may therefore recommend an inpatient to inpatient transfer. I will stop IV fluids. Give 1 dose of Lasi x.
[2017-09-27 16:10] VITALS: BP 115/80; TEMP 97.5
--- NOTE | 2017-09-27 17:27 | PDOC.PN ---
- Subjective Encounter Start Date: 09/26/17 Encounter Start Time: 14:00 Subjective: f/u for diast CHF and severe MR needing surgical intervention. Still -: with dyspnea but some improvement with IV Lasix. LE edema less. - Objective Resuscitation Status: Resuscitation Status FULL:Full Resuscitation MAR Reviewed: Yes Vital Signs & Weight: Vital Signs (12 hours) Temp Pulse Resp BP BP Pulse Ox 09/27/17 16:09 97.5 F L 71 16 115/80 97 09/27/17 11:58 97.6 F 69 17 107/76 99 09/27/17 07:10 97.6 F 69 17 110/77 96 Weight Admit Weight 213 lb 3.2 oz Weight 192 lb I&O: 09/26/17 09/27/17 09/28/17 06:59 06:59 06:59 Intake Total 480 720 597 Output Total 9325 725 100 Balance -975 -5 497 Result Diagrams: 09/27/17 07:20 09/27/17 07:20 Additional Labs: Laboratory Tests 09/24/17 09/24/17 09/25/17 18:07 18:07 04:27 Creatinine 1.51 H Creatine Kinase 239 H B-Natriuretic Peptide 1401.8 H 2121.0 H 09/26/17 03:41 Creatinine Creatine Kinase B-Natriuretic Peptide 2144.2 H EKG Reviewed by me: Yes (Tele - SR) Phys Exam - Physical Examination Constitutional: NAD HEENT: PERRLA, sclera anicteric, oral pharynx no lesions Neck: no nodes, no JVD, supple, full ROM bibasilar crackles Respiratory: no rhonchi II-III/ murmur Cardiovascular: RRR, no rub, gallop Gastrointestinal: soft, non-tender, no distention, positive bowel sounds bilat LE edema Musculoskeletal: pulses present Neurological: non-focal, normal sensation, moves all 4 limbs Psychiatric: normal affect, A&O x 3 Skin: no rash, normal turgor, cap refill <2 seconds Dx/Plan (1) Acute on chronic diastolic (congestive) heart failure Code(s): I50.33 - ACUTE ON CHRONIC DIASTOLIC (CONGESTIVE) HEART FAILURE Status : Acute Comment: EF 55% by echo 04/26, continue Lasix 40mg IV q12h (2) Dyspnea Code(s): R06.00 - DYSPNEA, UNSPECIFIED Status: Chronic Comment: Multifactorial including COPD and CHF with severe MR/TR, supportive mgmt (3) CKD (chronic kidney disease), stage III Code(s): N18.3 - CHRONIC KIDNEY DISEASE, STAGE 3 (MODERATE) Status: Chronic Comment: Avoid nephrotoxic meds and limit contrast exposure, likely contributing to LE edema (4) CAD (coronary artery disease) Code(s): I25.10 - ATHSCL HEART DISEASE OF [place] CORONARY ARTERY W/O ANG PCTRS Status: Chronic Comment: Cardiology discussing all options including revascularization, maximize medical therapy, ASA 81mg daily (5) COPD (chronic obstructive pulmonary disease) Status: Chronic Comment: No exacerbation, continue supportive mgmt - Plan PT/OT, director social service, respiratory therapy, out of bed/ambulate Continue Lasix 40mg IV q12h -: Likely will need surgical intervention for MV replacement, ?transfer -: Cardiology considering heart cath with stent to LAD -: Continue ASA 81mg daily -: AM lab: BMP, CBC * .
[2017-09-27] MEDS: Atorvastatin Calcium 40 MG TAB PO SCH (20:17)
[2017-09-27] MEDS: Amitriptyline HCl 100 MG TAB PO SCH (20:17)
--- NOTE | 2017-09-28 02:40 | DIS ---
DATE OF ADMISSION: 09/24/2017 DATE OF DISCHARGE: 09/27/2017 DISCHARGE DIAGNOSES: 1. Severe mitral valve regurgitation. 2. Acute on chronic diastolic congestive heart failure with ejection fraction of 55%. 3. Acute on chronic dyspnea secondarily to #1. 4. Chronic kidney disease, stage 3. 5. Coronary artery disease. 6. Chronic obstructive pulmonary disease. CONSULTATIONS: Dr. Vines with Cardiology Service. PRIMARY SERVICE ATTENDING: Dr. Houston Durham. PERTINENT LABORATORY AND X-RAY FINDINGS: Creatinine ranged between 1.35-1.62 with estimated GFR rang ing between 44-50. Total CK 239. Troponin I 0.017, BNP ranged between 1402 to 2144. CBC showed a h emoglobin ranging between 13.6-15.1. Portable chest x-ray dated 09/24/2017 showed cardiomegaly with bilateral pleural effusions. Atelectasis in the left lower lobe. A 2D transthoracic echocardiogram dated 04/25/2017 showed ejection fraction of 55% to 60%. Moderate left atrial enlargement. Severe m itral and tricuspid valve regurgitation. HOSPITAL COURSE: The patient was admitted to the telemetry unit after presenting with increased shor tness of breath in the context of known diastolic congestive heart failure. The patient had been tit rated on Lasix at home without specific improvement in dyspnea as well as increasing lower extremity edema. The patient with a known ejection fraction of 55% with diastolic dysfunction and severe valeriy l valve regurgitation. The patient also with a longstanding history of severe coronary artery diseas e involving the left anterior descending artery. The patient was initially placed on IV Lasix and ev aluated by the Cardiology service. The patient was diuresed during the hospital course with approxim ately 20-pound weight loss during the hospital course. Due to the patient's severe mitral valve regu rgitation, the patient was deemed an appropriate candidate for mitral valve replacement; however, aft er evaluation by the Thoracic Surgery team at [facility], the patient was recommended for tr ansfer to higher level of care for this procedure as this was not performed locally. The patient und erwent a repeat 2D transthoracic echocardiogram during the hospital course; however, the final result s are pending at the time of this dictation. Initial report showed wide open mitral valve necessitat ing transfer to higher level of care for mitral valve replacement. I have examined the patient at th e time of discharge and discussed followup instructions as well as need for transport. The patient a nd verbalized understanding and agreement and will transfer to [facility] in [place], [place] on 09/27/2017. DISCHARGE MEDICATIONS: 1. Amitriptyline 50 mg p.o. at bedtime. 2. Lipitor 40 mg p.o. at bedtime. 3. Coreg 3.125 mg p.o. b.i.d. 4. Lasix 40 mg IV q.12 hours. 5. Gabapentin 600 mg p.o. b.i.d. 6. Isosorbide mononitrate 30 mg p.o. daily. 7. Lisinopril 2.5 mg p.o. daily. 8. Aspirin 81 mg 1 tab p.o. daily. FOLLOWUP: The patient to follow up with his primary care provider, Dr. Aldo Ocampo after discharge from the [facility]. CONDITION ON DISCHARGE: Fair. ACTIVITY: Ad-bruce. DIET: Heart healthy. CODE STATUS: FULL. DISPOSITION: Transfer to [facility] in [place], [place]. Total time preparing and coordinating discharge is 34 minutes.
[2017-09-28] MEDS ORDERED: Famotidine 20 MG TAB PO SCH (09:00)
== END 2017-09-27 21:37 | disposition short-term general hospital (02) | DRG 291 ==
LOC: ERS 17:42 → 2SW 19:43 → OBSVTOIN 19:43 → 2NO 09-25 09:50
PROVIDERS: ADMIT Internal Medicine; ATTEND Internal Medicine
DX: I13.0 Hypertensive heart and chronic kidney disease with heart failure and stage 1 through stage 4 chronic kidney disease, or unspecified chronic kidney disease (principal); I50.33 Acute on chronic diastolic (congestive) heart failure; N17.9 Acute kidney failure, unspecified; I34.0 Nonrheumatic mitral (valve) insufficiency; I25.10 Atherosclerotic heart disease of native coronary artery without angina pectoris; N18.3 Chronic kidney disease, stage 3 (moderate); E78.5 Hyperlipidemia, unspecified; J44.9 Chronic obstructive pulmonary disease, unspecified; M47.9 Spondylosis, unspecified; Z87.891 Personal history of nicotine dependence; Z79.899 Other long term (current) drug therapy
CPT/HCPCS: 36415; 71045; 80048; 80053; 82550; 82553; 83880; 84484; 85025; 93005; 93306; 96374; G8978-GP-CJ; G8979-GP-CJ; G8980-GP-CJ; G8987-GO-CI; G8988-GO-CI; G8989-GO-CI; J1644; J1650; J1940; J2001

== ENCOUNTER 2017-12-07 12:56 | Inpatient (IN) | payer MEDICARE ==
[2017-12-07 14:13] LABS: #Basophils 0.1 thou/uL (0.0-0.2); #Eosinphils 0.1 thou/uL (0.0-0.7); #Lymphocytes 3.2 thou/uL (1.20-3.40); #Monocytes 0.7 thou/uL (0.11-0.59); #Neutrophils 4.3 thou/uL (1.40-6.50); %Basophils 0.8 % (0.0-1.0); %Eosinophils 1.3 % (0.0-10.0); %Lymphocytes 38.5 % (21.0-51.0); %Monocytes 8.1 % (0.0-10.0); %Neutrophils 51.2 % (42.0-75.0); Hemoglobin 14.3 g/dL (14.0-18.0); Mean Corpuscular HGB CONC 33.5 g/dL (32.0-36.0); Mean Corpuscular Hemoglobin 32.7 pg (27.0-31.0); Mean Corpuscular Volume 97.4 fL (78.0-98.0); Mean Platelet Volume 7.2 fL (7.4-10.4); Platelet Count 211 thou/uL (130-400); RBC Distribution Width 13.8 % (11.5-14.5); Red Blood Cell (RBC) Count 4.37 mill/uL (4.70-6.10); White Blood Cell (WBC) Count 8.3 thou/uL (4.8-10.8)
[2017-12-07 14:36] LABS: ALT (SGPT) 16 U/L (8-55); AST (SGOT) 21 U/L (5-34); Albumin 3.6 g/dL (3.4-4.8); Alkaline Phosphatase 92 U/L (40-150); Anion Gap 10 mmol/L (10-20); BUN (Urea Nitrogen) 17 mg/dL (8.4-25.7); Bilirubin, Total 0.8 mg/dL (0.2-1.2); Calc. Creatinine Clearance 0 mL/min (70-130); Calcium 9.3 mg/dL (7.8-10.44); Carbon Dioxide 28 mmol/L (23-31); Chloride 104 mmol/L (98-107); Estimated GFR-MDRD 86; Globulin 4.1 g/dL (2.4-3.5); Glucose 91 mg/dL (83-110); Lipase 32 U/L (8-78); Potassium 4.1 mmol/L (3.5-5.1); Protein, Total 7.7 g/dL (5.8-8.1); Sodium 138 mmol/L (136-145)
[2017-12-07 15:30] LABS: Bilirubin Negative (Negative); Blood, Urine Small (Negative); Clarity CLOUDY (Clear); Glucose, Urine (Dipstick) Negative (Negative); Leukocyte Moderate (Negative); Nitrite Negative (Negative); Protein, Urine (Dipstick) 300 mg/dL (Neg-Trace); Specific Gravity, Urine 1.018 (1.002-1.036); Urobilinogen 0.2 mg/dL (0.2-1.0)
[2017-12-07 15:39] LABS: Bacteria/HPF 4+ HPF (None Seen); Pathc Cast-AUWi Flag 0.29 (0-2.49); Squamous Epithelial None Seen HPF (0-3)
[2017-12-07 15:52] LABS: Hyaline Casts/LPF NONE SEEN LPF (0-3 Hyaline)
[2017-12-07 16:52] LABS: CKMB 3.4 ng/mL (0-6.6); Troponin I 0.021 ng/mL (< 0.028)
[2017-12-07] MEDS ORDERED: Nitroglycerin 2% Ointment 1 INCH/1 GM Packet ONE (16:54)
[2017-12-07] MEDS ORDERED: cefTRIAXone\\ROCEPHIN 2 GM VIAL ONE (16:54)
[2017-12-07] MEDS ORDERED: Carvedilol 6.25 MG TAB PO SCH (17:00)
[2017-12-07] MEDS ORDERED: Nitroglycerin 0.4 MG TAB (25 Tab Bottle) ONE (17:03)
[2017-12-07] MEDS ORDERED: Clopidogrel Bisulfate 75 MG TAB ONE (17:18)
[2017-12-07] MEDS ORDERED: Senokot 8.6 MG TAB PO PRN (17:23)
--- NOTE | 2017-12-07 17:41 | RAD ---
RADIOGRAPH CHEST 1 VIEW: Date: 12/07/17 Time: 5:23 p.m. HISTORY: 82-year-old male with nausea, vomiting, and urgent hypertension. COMPARISON: 09/24/17 FINDINGS: Multiple electrical leads and electrical devices overlie the chest, new from the prior study. Again n oted is the cardiomegaly. Blunting of the right lateral costophrenic angle similar to prior study. Th e previously indistinct left hemidiaphragmatic shadow is now distinct and clear. Left lateral costoph renic angle is sharp. Pulmonary venous engorgement is again demonstrated. New, hyperdense focal 4 x 5 cm air space opacity at the right mid lung zone laterally. No mel pulmonary edema. No pneumothorax . IMPRESSION: 1. Cardiomegaly and pulmonary venous congestion. 2. New dense opacity at the lateral aspect of the right mid lung zone, which may represent pneum onia. Serial followup chest radiographs are recommended to be sure that this is not a neoplastic tumo r. 3. Small right pleural effusion persists. NAZ [] POS: BRITTANY
[2017-12-07] MEDS ORDERED: Lidocaine 2% Viscous Solution 10 ML, Aluminum & Magnesium Hydroxide 30 ML SSW SCH (17:45)
[2017-12-07] MEDS ORDERED: Furosemide 40 MG/4 ML VIAL SLOW IVP SCH (17:45)
[2017-12-07] MEDS ORDERED: Losartan 25 MG TAB PO SCH (18:00)
[2017-12-07] MEDS ORDERED: Furosemide 40 MG/4 ML VIAL ONE ×2 (18:24→18:27)
[2017-12-07] MEDS ORDERED: Isosorbide Dinitrate 20 MG TAB PO SCH (20:30)
[2017-12-07] MEDS: Ampicillin/Sulbactam 1.5 GM in Sodium Chloride 0.9% 100 ML IVPB SCH (20:42)
[2017-12-07] MEDS: Apixaban 2.5 MG TAB PO SCH (20:47)
[2017-12-07] MEDS: Gabapentin 300 MG CAP PO SCH (20:56)
[2017-12-07 22:52] VITALS: BMI 22.3
[2017-12-07] MEDS ORDERED: Ondansetron HCl/PF 4 MG/2 ML Vial SLOW IVP PRN (22:59)
--- NOTE | 2017-12-08 00:35 | HP ---
CHIEF COMPLAINT: Nausea, vomiting, headache, and dizziness. HISTORY OF PRESENT ILLNESS: Patient is a very pleasant 82-year-old male with past medical history of hypertension, hypercholesterolemia, atrial fibrillation, osteoarthritis and also severe mitral regur gitation, who presented to the hospital for nausea, vomiting, dizziness, and headache. Patient state d that he was hospitalized here and also per documentation around September for shortness of breath; at th at time, he did undergo an echocardiogram, which indicated an EF of 50% -55% and patient had severe m itral regurgitation. Patient was evaluated by [facility] here and felt that he was not an appropriate candidate for any kind of bypass and therefore the patient was transferred to [facility] for further evaluation. Patient also has a history of coronary artery disease and per records, it was noted that his shortness of breath could be possibly secondary to an LAD lesion; however, at t hat time, patient did not undergo a cardiac catheterization and patient was transferred to [place] fo further evaluation. Upon asking the family, family states that patient had aortic valve repair; amna joseph, per notes an echocardiogram indicates that patient had a severe mitral regurgitation, so I christianne l get official records from [place] to see which valve was repaired. Patient also had according to simone mujica, two stents placed, I am not sure exactly where it was placed. Patient does not have his card with him currently. Patient stated that after surgery in [place], he actually went to a rehab center for 2 weeks and then went home. Patient stated that he had called his milled rubber tender locally here mul tiple times to get refill on his medications since the milled rubber tender in [place] had given him a limite d supply of his medications and had asked him to follow up with the local milled rubber tender for medication reconciliation. However, patient stated that he was unable to get an appointment with the cardiolog ist and that is why he has not been taking any of his medications for the past week and half. Zuleyma jurado also stated for the past couple of weeks, he has been having worsening dizziness on ambulation and also nausea, vomiting, and has not been able to keep anything down. According to family members, he has lost a significant amount of weight. Patient states that he has been watching how much fluid int felix he has been taking. Patient also states that he felt his blood pressure being elevated, because he felt like he had a headache today. PAST MEDICAL HISTORY: Hypertension, hypercholesterolemia, severe osteoarthritis. Patient has had se destini MR and echocardiogram in his previous studies. PAST SURGICAL HISTORY: He has a history of cholecystectomy. He has had 7 back surgeries, hip surger ies, three neck surgeries, and I am not sure, mitral valve replacement, aortic valve replacement with also 2 stents placed in this time. ALLERGIES: No known drug allergies. SOCIAL HISTORY: Patient is . He lives with his . He is a F[employer]. His surrogate lucio burns maker is his daughter, Pancho and also his . He used to smoke one pack a day, occasional alc ohol use; however, currently he is not a smoker. REVIEW OF SYSTEMS: All negative except for the ones mentioned above in the HPI. HOME MEDICATIONS: Patient takes abciximab 2.5 mg daily, carvedilol 3.25 twice a day, clopidogrel 75 mg daily, Lasix 40 mg daily, gabapentin 300 mg daily, isosorbide 40 mg daily, and losartan 50 mg juli y. PHYSICAL EXAMINATION: VITAL SIGNS: Patient had a temperature of 98.8. His heart rate was 71. His blood pressure has been 180s/123. He is 97% on room air. GENERAL: He is awake, alert, oriented x3, does not appear in distress. CARDIOVASCULAR: S1, S2 present. No murmurs, rubs, or gallops. HEENT: Patient appears a little bit dehydrated. NECK: No JVD noted. LUNGS: Diminished breath sounds at bilateral lower lungs, but no rhonchi or wheezes noted. ABDOMEN: Soft. Bowel sounds are present x2. He does have some mid epigastric pain upon deep palpat ion. EXTREMITIES: Lower extremity mild, 1+ lower extremity edema bilaterally. NEUROLOGIC: No neuro deficits noted. SKIN: Intact. LABORATORY DATA: As of the following WBCs of 8.3, hemoglobin of 14.3, hematocrit 42.5, platelets of 211. His chemistry indicates sodium 138, potassium of 4.1, BUN of 17, creatinine 0.85. His proBNP i s 2088. Troponin x1 and 0.021 and LFTs are normal. His urine appears to have mild leukocyte esteras e and wbc's. His chest x-ray looks like possible pneumonia and also significant pulmonary congestion . EKG, no significant changes. ASSESSMENT AND PLAN: Patient is an 82-year-old male who presents to the hospital with multiple compl aints: 1. Possible pneumonia. I am not sure if it is aspiration versus community-acquired. We will start patient on Unasyn for now. Patient is currently asymptomatic. Denies any cough, fever, chills. Has no leukocytosis, which will also cover for his urinary tract infection. 2. Hypertension. Patient has significant hypertension. We will start patient back on his home medi cations. Also, give him p.r.n. and continue to monitor. 3. History of valvular repair, I am not sure if it aortic versus mitral appendage from the echocardi ogram, it appears to be mitral, but I am not sure patient's family and the patient was very adamant w ith an aortic valve repair. Patient does have currently has LifeVest. We will get Cardiology for me dication reconciliation and continue to monitor. 4. Atrial fibrillation, rate controlled. Patient is on Eliquis. We will continue to monitor. 5. Coronary artery disease. Again, patient has been off his clopidogrel for the past week and a kelin f. We will start the patient back on his clopidogrel. He denies any chest pain. Also given his justin sea and vomiting, we will start patient on some Pepcid twice a day or Protonix. 6. Deep venous thrombosis prophylaxis, patient is already on abciximab.
[2017-12-08] MEDS: Ampicillin/Sulbactam 1.5 GM in Sodium Chloride 0.9% 100 ML IVPB SCH ×3 (03:33→20:44)
[2017-12-08 06:02] LABS: #Eosinphils 0.1 thou/uL (0.0-0.7); #Lymphocytes 2.2 thou/uL (1.20-3.40); #Monocytes 0.6 thou/uL (0.11-0.59); #Neutrophils 2.2 thou/uL (1.40-6.50); %Basophils 0.9 % (0.0-1.0); %Eosinophils 2.5 % (0.0-10.0); %Lymphocytes 42.4 % (21.0-51.0); %Monocytes 11.2 % (0.0-10.0); %Neutrophils 42.9 % (42.0-75.0); Mean Corpuscular HGB CONC 33.6 g/dL (32.0-36.0); Mean Corpuscular Hemoglobin 33.4 pg (27.0-31.0); Mean Corpuscular Volume 99.4 fL (78.0-98.0); Mean Platelet Volume 7.7 fL (7.4-10.4); Platelet Count 166 thou/uL (130-400); RBC Distribution Width 13.8 % (11.5-14.5); Red Blood Cell (RBC) Count 3.88 mill/uL (4.70-6.10); White Blood Cell (WBC) Count 5.1 thou/uL (4.8-10.8)
[2017-12-08 06:19] LABS: Anion Gap 13 mmol/L (10-20); BUN (Urea Nitrogen) 17 mg/dL (8.4-25.7); Calc. Creatinine Clearance 61 mL/min (70-130); Calcium 8.9 mg/dL (7.8-10.44); Carbon Dioxide 27 mmol/L (23-31); Chloride 104 mmol/L (98-107); Estimated GFR-MDRD 84; Glucose 110 mg/dL (83-110); Potassium 3.6 mmol/L (3.5-5.1); Sodium 140 mmol/L (136-145)
[2017-12-08] MEDS ORDERED: Prevnar 13-Val Conj/PF 0.5 ML SYRINGE IM ONE (09:00)
[2017-12-08] MEDS: Losartan 25 MG TAB PO SCH (09:14)
[2017-12-08] MEDS: Gabapentin 300 MG CAP PO SCH ×2 (09:15→20:44)
[2017-12-08] MEDS: Isosorbide Dinitrate 20 MG TAB PO SCH (09:15)
[2017-12-08] MEDS: Carvedilol 6.25 MG TAB PO SCH ×2 (09:15→17:06)
[2017-12-08] MEDS: Clopidogrel Bisulfate 75 MG TAB PO SCH (09:15)
[2017-12-08] MEDS: Sodium Chloride 0.9% 10 ML ONE ×2 (09:19→13:53)
[2017-12-08] MEDS: Apixaban 2.5 MG TAB PO SCH ×2 (10:45→20:44)
[2017-12-08] MEDS: Acetaminophen 325 MG TAB PO PRN (12:48)
--- NOTE | 2017-12-08 16:47 | CON ---
DATE OF CONSULTATION: 12/08/2017 REASON FOR CONSULTATION: Atrial fibrillation. PRIMARY PROCUREMENT PROFESSIONAL: Chase Vines M.D. HISTORY OF PRESENT ILLNESS: Mr. Woods is a very pleasant 82-year-old white gentleman who comes to the hospital for nausea, vomiting, headache and dizziness. He is a patient of Dr. Vines, who he was seen back in October. At that time, he was having a lot of episodes of heart failure on admission, so he was found to have a wide open MR with significant coronary artery disease, so he was transferred over to [place] where he had stenting as well as a minimally invasive mitral replacement by Dr. Brown. His EF dropped tp 30-35% after the MR was improved and he was discharged home on the LifeVest and the whole new set of medications. He has not followed up with Dr. Vines since discharge from the [facility] from what I can tell. Currently, I do not have access to the records as the electrical converter in the building our clinic is at is down for repairs. He apparently ran out of medication about a week ago and could not get them refilled, so he showed up today because he started having nausea and vomiting, could not hold anything down. He was diagnosed with possibly a right middle lobe pneumonia thought to be related to aspiration as well. Cardiology is being consulted as well for further evaluation. He has chronic atrial fibrillation. His heart rate is in the 80s. PAST MEDICAL HISTORY: 1. Hypertension. 2. Hyperlipidemia. 3. Severe osteoarthritis. 4. Severe mitral regurgitation, status post mitral valve replacement. 5. Dilated cardiomyopathy, LifeVest in place. PAST SURGICAL HISTORY: 1. Cholecystectomy. 2. Back surgeries. 3. Hip surgery. 4. Neck surgery. 5. Mitral valve replacement, bioprosthetic, minimally invasive approach 6. Stenting to the LAD. ALLERGIES: No known drug allergies. OUTPATIENT MEDICATIONS: 1. Eliquis 2.5 mg twice a day. 2. Carvedilol 3.125 mg b.i.d. 3. Plavix 75 mg. 4. Lasix 4 mg a day. 5. Gabapentin 300 mg a day. 6. Isosorbide dinitrate 40 mg 3 times a day. 7. Losartan 50 mg a day. ALLERGIES: No known drug allergies. REVIEW OF SYSTEMS: A 12-point review of systems was done and is all negative unless stated in the history of present illness. FAMILY HISTORY: Noncontributory. SOCIAL HISTORY: No alcohol, tobacco or drugs. PHYSICAL EXAMINATION: VITAL SIGNS: Temperature 98.2, pulse 87, respiration rate 16, satting 98% on room air, blood pressure 130/88. GENERAL: Awake, alert, and oriented x3, in no distress. HEENT: Normocephalic, atraumatic. NECK: Supple. LUNGS: Have mild crackles at the bases. CARDIOVASCULAR: S1, S2, irregularly irregular, heart rate in the 80s. There is a grade 2/6 holosystolic murmur at the apex. ABDOMEN: Soft, positive bowel sounds. EXTREMITIES: Trace edema. SKIN: Warm and dry. LABORATORY WORK: Reviewed. CBC with a white count of 8.3, hemoglobin 14.3, hematocrit 42, platelet count of 211. Chemistries are unremarkable. Albumin of 3.6. BNP is 2088. CK-MB and troponin were negative x1. UA had small amount of blood, moderate leukocyte esterase, negative nitrites, 11-20 red cells , more than 50 white cells, 4+ bacteria. Chest x-ray showed some vascular congestion as well as cardiomegaly and mid lung zone, possible infiltrate, possible pneumonia. Small right pleural effusion. ASSESSMENT: 1. Acute on chronic systolic heart failure. 2. Severe mitral regurgitation, status post mitral valve replacement, minimally invasive approach. 3. Chronic atrial fibrillation, rate controlled. 4. Possible pneumonia and urinary tract infection. PLAN: 1. IV antibiotics per primary team. 2. We will give IV Lasix to get some of this fluid out. This could be related to his nausea and vomiting as well. 3. Continue Plavix and Eliquis for stroke prophylaxis and the Plavix for his recent LAD PCI. Thank you for letting us participate in the care of your patient. We will follow. COOPER
[2017-12-08] MEDS ORDERED: cefTRIAXone\\ROCEPHIN 1 GM in Sodium Chloride 0.9% 100 ML IVPB SCH (17:00)
--- NOTE | 2017-12-08 19:30 | PDOC.PN ---
- Subjective Encounter Start Date: 12/08/17 Encounter Start Time: 10:30 Subjective: pt up in bed feels much better - Objective Resuscitation Status: Resuscitation Status FULL:Full Resuscitation Vital Signs & Weight: Vital Signs (12 hours) Temp Pulse Pulse Pulse Resp BP BP 12/08/17 17:06 144/98 H 12/08/17 16:00 97.5 F L 86 18 12/08/17 12:00 98.2 F 87 16 12/08/17 10:40 103 H 98 145/73 H 12/08/17 09:15 133/91 H 12/08/17 08:00 98.3 F 80 16 BP BP BP Pulse Ox 12/08/17 17:06 12/08/17 16:00 144/98 H 98 12/08/17 12:00 112/71 12/08/17 10:40 138/88 12/08/17 09:15 12/08/17 08:00 133/91 H 95 Weight Admit Weight 147 lb Weight 147 lb Result Diagrams: 12/08/17 05:31 12/08/17 05:31 Phys Exam - Physical Examination HEENT: PERRLA, moist MMs, sclera anicteric, TM's clear, oral pharynx no lesions , 2+ tonsils Neck: no nodes, no JVD, supple, full ROM Respiratory: no wheezing, no rales, no rhonchi, wheezing present, clear to auscultation bilateral Cardiovascular: RRR, no significant murmur, no rub, gallop, irregular Gastrointestinal: soft, non-tender, no distention, positive bowel sounds Dx/Plan (1) Nausea & vomiting Code(s): R11.2 - NAUSEA WITH VOMITING, UNSPECIFIED Status: Acute (2) Pneumonia Code(s): J18.9 - PNEUMONIA, UNSPECIFIED ORGANISM Status: Acute (3) UTI (urinary tract infection) Status: Acute (4) Acute on chronic diastolic (congestive) heart failure Code(s): I50.33 - ACUTE ON CHRONIC DIASTOLIC (CONGESTIVE) HEART FAILURE Status : Acute Comment: EF 55% by echo 04/26, continue Lasix 40mg IV q12h - Plan will continue current abx -: appreciate cardiology input -: pt has been started on his home meds -: Explained to pt that he will need repeat xray in 3-6 months * . Review of Systems - Review of Systems Respiratory: negative: Cough, Dry, Shortness of Breath, Hemoptysis, SOB with Excertion, Pleuritic Pain, Sputum, Wheezing Cardiovascular: negative: chest pain, palpitations, orthopnea, paroxysmal nocturnal dyspnea, edema, light headedness, other Gastrointestinal: negative: Nausea, Vomiting, Abdominal Pain, Diarrhea, Constipation, Melena, Hematochezia, Other - Medications/Allergies Allergies/Adverse Reactions: Allergies Allergy/AdvReac Type Severity Reaction Status Date / Time No Known Allergies Allergy Verified 09/24/17 21:11 Medications: Current Medications Acetaminophen (Tylenol) 650 mg PO Q4H PRN PRN Reason: Headache/Fever or Pain Last Admin: 12/08/17 12:48 Dose: 650 mg Apixaban (Eliquis) 2.5 mg PO BID [facility] Last Admin: 12/08/17 10:45 Dose: 2.5 mg Carvedilol (Coreg) 6.25 mg PO BID[facility] Last Admin: 12/08/17 17:06 Dose: 6.25 mg Clopidogrel Bisulfate (Plavix) 75 mg PO DAILY [facility] Last Admin: 12/08/17 09:15 Dose: 75 mg Furosemide (Lasix) 40 mg SLOW IVP 0600,1400 [facility] Gabapentin (Neurontin) 300 mg PO BID [facility] Last Admin: 12/08/17 09:15 Dose: 300 mg Ampicillin Sodium/Sulbactam (Sodium 1.5 gm/ Sodium Chloride) 100 mls @ 200 mls/ hr IVPB 0400,1200,2000 [facility] Last Admin: 12/08/17 13:52 Dose: 100 mls Isosorbide Dinitrate (Isordil) 40 mg PO DAILY [facility] Last Admin: 12/08/17 09:15 Dose: 40 mg Losartan Potassium (Cozaar) 25 mg PO DAILY [facility] Last Admin: 12/08/17 09:14 Dose: 25 mg Ondansetron HCl (Zofran) 4 mg SLOW IVP Q4H PRN PRN Reason: Nausea/Vomiting Pantoprazole Sodium (Protonix) 40 mg PO BID [facility] Last Admin: 12/08/17 09:16 Dose: 40 mg Senna (Senokot) 2 tab PO HSPRN PRN PRN Reason: Constipation
[2017-12-09] MEDS: Ampicillin/Sulbactam 1.5 GM in Sodium Chloride 0.9% 100 ML IVPB SCH ×3 (03:43→20:22)
[2017-12-09] MEDS: Furosemide 40 MG/4 ML VIAL SLOW IVP SCH ×2 (05:43→13:45)
[2017-12-09] MEDS: Carvedilol 6.25 MG TAB PO SCH ×2 (09:54→17:19)
[2017-12-09] MEDS: Apixaban 2.5 MG TAB PO SCH ×2 (09:56→20:45)
[2017-12-09] MEDS: Clopidogrel Bisulfate 75 MG TAB PO SCH (09:58)
[2017-12-09] MEDS: Gabapentin 300 MG CAP PO SCH ×2 (09:59→20:45)
[2017-12-09] MEDS: Isosorbide Dinitrate 20 MG TAB PO SCH (10:01)
[2017-12-09] MEDS: Losartan 25 MG TAB PO SCH (10:03)
[2017-12-09] MEDS: Acetaminophen 325 MG TAB PO PRN (12:10)
--- NOTE | 2017-12-09 14:49 | PDOC.PN ---
- Subjective Encounter Start Date: 12/09/17 Encounter Start Time: 10:30 Subjective: pt up in bed feels better - Objective Resuscitation Status: Resuscitation Status FULL:Full Resuscitation Vital Signs & Weight: Vital Signs (12 hours) Temp Pulse Resp BP BP Pulse Ox 12/09/17 11:55 98.0 F 79 16 115/73 92 L 12/09/17 09:54 162/94 H 12/09/17 07:35 97.5 F L 76 16 93 L 12/09/17 07:30 97.5 F L 76 16 162/94 H 93 L 12/09/17 04:00 97.6 F 79 16 136/96 H 92 L Weight Admit Weight 147 lb Weight 147 lb I&O: 12/08/17 12/09/17 12/10/17 06:59 06:59 06:59 Intake Total 510 Output Total 375 Balance 135 Result Diagrams: 12/08/17 05:31 12/08/17 05:31 Phys Exam - Physical Examination Respiratory: no wheezing, no rales, no rhonchi, wheezing present, clear to auscultation bilateral Cardiovascular: RRR, no significant murmur, no rub, gallop, irregular Gastrointestinal: soft, non-tender, no distention, positive bowel sounds Musculoskeletal: no edema, pulses present, edema present Dx/Plan (1) Nausea & vomiting Code(s): R11.2 - NAUSEA WITH VOMITING, UNSPECIFIED Status: Acute (2) Pneumonia Code(s): J18.9 - PNEUMONIA, UNSPECIFIED ORGANISM Status: Acute (3) UTI (urinary tract infection) Status: Acute (4) Acute on chronic diastolic (congestive) heart failure Code(s): I50.33 - ACUTE ON CHRONIC DIASTOLIC (CONGESTIVE) HEART FAILURE Status : Acute Comment: EF 55% by echo 04/26, continue Lasix 40mg IV q12h - Plan will continue current meds -: repeat cxr in am -: urine indicates klebsiella pneumoniae, will continue unasyn -: speech to evaluate pt * . Review of Systems - Review of Systems Respiratory: negative: Cough, Dry, Shortness of Breath, Hemoptysis, SOB with Excertion, Pleuritic Pain, Sputum, Wheezing Cardiovascular: negative: chest pain, palpitations, orthopnea, paroxysmal nocturnal dyspnea, edema, light headedness, other Gastrointestinal: negative: Nausea, Vomiting, Abdominal Pain, Diarrhea, Constipation, Melena, Hematochezia, Other Genitourinary: negative: Dysuria, Frequency, Incontinence, Hematuria, Retention , Other - Medications/Allergies Allergies/Adverse Reactions: Allergies Allergy/AdvReac Type Severity Reaction Status Date / Time No Known Allergies Allergy Verified 09/24/17 21:11 Medications: Current Medications Acetaminophen (Tylenol) 650 mg PO Q4H PRN PRN Reason: Headache/Fever or Pain Last Admin: 12/09/17 12:10 Dose: 650 mg Apixaban (Eliquis) 2.5 mg PO BID [facility] Last Admin: 12/09/17 09:56 Dose: 2.5 mg Carvedilol (Coreg) 6.25 mg PO BID[facility] Last Admin: 12/09/17 09:54 Dose: 6.25 mg Clopidogrel Bisulfate (Plavix) 75 mg PO DAILY [facility] Last Admin: 12/09/17 09:58 Dose: 75 mg Furosemide (Lasix) 40 mg SLOW IVP 0600,1400 [facility] Last Admin: 12/09/17 13:45 Dose: 40 mg Gabapentin (Neurontin) 300 mg PO BID [facility] Last Admin: 12/09/17 09:59 Dose: 300 mg Ampicillin Sodium/Sulbactam (Sodium 1.5 gm/ Sodium Chloride) 100 mls @ 200 mls/ hr IVPB 0400,1200,2000 [facility] Last Admin: 12/09/17 12:13 Dose: 100 mls Isosorbide Dinitrate (Isordil) 40 mg PO DAILY [facility] Last Admin: 12/09/17 10:01 Dose: 40 mg Losartan Potassium (Cozaar) 25 mg PO DAILY [facility] Last Admin: 12/09/17 10:03 Dose: 25 mg Ondansetron HCl (Zofran) 4 mg SLOW IVP Q4H PRN PRN Reason: Nausea/Vomiting Pantoprazole Sodium (Protonix) 40 mg PO BID [facility] Last Admin: 12/09/17 10:04 Dose: 40 mg Senna (Senokot) 2 tab PO HSPRN PRN PRN Reason: Constipation
--- NOTE | 2017-12-09 16:30 | PDOC.CTH ---
Cardiology Progress Note - Subjective He is doing better. - Objective Vital Signs Temp Pulse Resp BP BP Pulse Ox 12/09/17 15:25 97.7 F 79 18 113/73 94 L 12/09/17 11:55 98.0 F 79 16 115/73 92 L 12/09/17 09:54 162/94 H 12/09/17 07:35 97.5 F L 76 16 93 L 12/09/17 07:30 97.5 F L 76 16 162/94 H 93 L Admit Weight 147 lb Weight 147 lb 12/08/17 12/09/17 12/10/17 06:59 06:59 06:59 Intake Total 510 Output Total 375 Balance 135 - Physical Examination General/Neuro: alert & oriented x3, NAD Neck: no JVD present Lungs: unlabored respirations Heart: other: (Irregular) Abdomen: NT/ND Extremities: other: (no edema) - Telemetry Telemetry Rhythm: Afib HR 70's. - Labs Result Diagrams: 12/08/17 05:31 12/08/17 05:31 Troponin/CKMB CK-MB (CK-2) 3.4 ng/mL (0-6.6) 12/07/17 16:27 Troponin I 0.021 ng/mL (< 0.028) 12/07/17 16:27 - Assessment/Plan 1. S/P Mitral valve replacement,. Minimally invasive. 2. S/P PCI to the LAD. 3. Acuet on chronic systolic heart failure 4. Dilaed CM LVEF on echo today at 20-25% 5. Chronic Afib rate controlled. 6. Chronic anticoagulation with Eliquis 7. lifevest in place. 8. Pneumonia/UTI PLAN: - Continue abx per primary team. - Continue IV lasix. Switch to PO tomorrow. - Continue lifevest use. - Will need follow up with Dr. Vines in 1 month and a repeat echo in 1 month before deciding on AICD placement.
[2017-12-10] MEDS: Ampicillin/Sulbactam 1.5 GM in Sodium Chloride 0.9% 100 ML IVPB SCH ×3 (03:41→20:35)
[2017-12-10] MEDS: Furosemide 40 MG/4 ML VIAL SLOW IVP SCH ×2 (05:39→14:55)
[2017-12-10] MEDS: Carvedilol 6.25 MG TAB PO SCH ×2 (08:49→17:08)
[2017-12-10] MEDS: Losartan 25 MG TAB PO SCH ×2 (08:49→20:41)
[2017-12-10] MEDS: Isosorbide Dinitrate 20 MG TAB PO SCH (08:49)
[2017-12-10] MEDS: Gabapentin 300 MG CAP PO SCH ×2 (08:49→20:40)
[2017-12-10] MEDS: Clopidogrel Bisulfate 75 MG TAB PO SCH (08:49)
[2017-12-10] MEDS: Apixaban 2.5 MG TAB PO SCH (08:51)
[2017-12-10] MEDS ORDERED: ISOVUE-370 76%-LOCM 1 ML ONE (11:02)
[2017-12-10] MEDS ORDERED: Spironolactone 25 MG TAB PO SCH (11:15)
--- NOTE | 2017-12-10 12:13 | RAD ---
CHEST 1 VIEW: COMPARISON: 12/07/17 exam. HISTORY: Shortness of breath, pneumonia. FINDINGS: Heart size is enlarged. Valve replacement is again noted. There are atherosclerotic changes of the aorta. A density in the right mid lung field could be related to a loculated pleural effusion relate d to the fissure. I cannot exclude this representing a mass. A PA and lateral chest film would be h elpful in assessment. It is unchanged in appearance as compared to the prior study. There appear to be some pleural changes in the right lung base. IMPRESSION: 1. Cardiomegaly. 2. A density in the right mid lung field. I would favor this as a pseudotumor related to some locul ated fluid, but a mass is not definitely excluded as this is not entirely typical in appearance for a pseudotumor. It is stable as compared to the previous exam. Followup chest film is suggested. POS: BRITTANY
[2017-12-10 12:21] LABS: Anion Gap 15 mmol/L (10-20); BUN (Urea Nitrogen) 19 mg/dL (8.4-25.7); Calc. Creatinine Clearance 60 mL/min (70-130); Calcium 8.7 mg/dL (7.8-10.44); Carbon Dioxide 27 mmol/L (23-31); Chloride 100 mmol/L (98-107); Estimated GFR-MDRD 83; Glucose 98 mg/dL (83-110); Potassium 3.5 mmol/L (3.5-5.1); Sodium 138 mmol/L (136-145)
--- NOTE | 2017-12-10 17:03 | PDOC.PN ---
- Subjective Encounter Start Date: 12/10/17 Encounter Start Time: 10:30 Subjective: pt up in bed no complains - Objective Resuscitation Status: Resuscitation Status FULL:Full Resuscitation Vital Signs & Weight: Vital Signs (12 hours) Temp Pulse Resp BP BP Pulse Ox 12/10/17 11:25 97.6 F 89 18 128/79 97 12/10/17 08:49 149/86 H 12/10/17 07:45 97.8 F 83 18 149/86 H 95 12/10/17 07:35 97.8 F 83 18 95 Weight Admit Weight 147 lb Weight 147 lb 3.2 oz I&O: 12/09/17 12/10/17 12/11/17 06:59 06:59 06:59 Intake Total 510 1125 Output Total 375 1800 Balance 135 -675 Result Diagrams: 12/08/17 05:31 12/10/17 11:50 Phys Exam - Physical Examination Neck: no nodes, no JVD, supple, full ROM Respiratory: no wheezing, no rales, no rhonchi, wheezing present, clear to auscultation bilateral Cardiovascular: RRR, no significant murmur, no rub, gallop, irregular Gastrointestinal: soft, non-tender, no distention, positive bowel sounds Dx/Plan (1) Nausea & vomiting Code(s): R11.2 - NAUSEA WITH VOMITING, UNSPECIFIED Status: Acute (2) Pneumonia Code(s): J18.9 - PNEUMONIA, UNSPECIFIED ORGANISM Status: Acute (3) UTI (urinary tract infection) Status: Acute (4) Acute on chronic diastolic (congestive) heart failure Code(s): I50.33 - ACUTE ON CHRONIC DIASTOLIC (CONGESTIVE) HEART FAILURE Status : Acute Comment: EF 55% by echo 04/26, continue Lasix 40mg IV q12h - Plan pt's cxr indicates right density will get ct chest with iv contrast -: pt's medication were titrated up by cardiology * . Review of Systems - Review of Systems ENT: negative: Ear Pain, Ear Discharge, Nose Pain, Nose Discharge, Nose Congestion, Mouth Pain, Mouth Swelling, Throat Pain, Throat Swelling, Other Respiratory: negative: Cough, Dry, Shortness of Breath, Hemoptysis, SOB with Excertion, Pleuritic Pain, Sputum, Wheezing Cardiovascular: negative: chest pain, palpitations, orthopnea, paroxysmal nocturnal dyspnea, edema, light headedness, other Gastrointestinal: negative: Nausea, Vomiting, Abdominal Pain, Diarrhea, Constipation, Melena, Hematochezia, Other - Medications/Allergies Allergies/Adverse Reactions: Allergies Allergy/AdvReac Type Severity Reaction Status Date / Time No Known Allergies Allergy Verified 09/24/17 21:11 Medications: Current Medications Acetaminophen (Tylenol) 650 mg PO Q4H PRN PRN Reason: Headache/Fever or Pain Last Admin: 12/09/17 12:10 Dose: 650 mg Apixaban (Eliquis) 5 mg PO BID [facility] Carisoprodol (Soma) 350 mg PO HS PRN PRN Reason: Muscle Pain [facility] Clopidogrel Bisulfate (Plavix) 75 mg PO DAILY [facility] Last Admin: 12/10/17 08:49 Dose: 75 mg Furosemide (Lasix) 40 mg PO DAILY [facility] Gabapentin (Neurontin) 300 mg PO BID [facility] Last Admin: 12/10/17 08:49 Dose: 300 mg Ampicillin Sodium/Sulbactam (Sodium 1.5 gm/ Sodium Chloride) 100 mls @ 200 mls/ hr IVPB 0400,1200,2000 [facility] Last Admin: 12/10/17 11:23 Dose: 100 mls Isosorbide Dinitrate (Isordil) 40 mg PO DAILY [facility] Last Admin: 12/10/17 08:49 Dose: 40 mg Losartan Potassium (Cozaar) 25 mg PO BID [facility] Ondansetron HCl (Zofran) 4 mg SLOW IVP Q4H PRN PRN Reason: Nausea/Vomiting Oxycodone HCl (Oxycodone Ir) 10 mg PO Q4H PRN PRN Reason: Pain 4-6 Pantoprazole Sodium (Protonix) 40 mg PO BID [facility] Last Admin: 12/10/17 08:49 Dose: 40 mg Senna (Senokot) 2 tab PO HSPRN PRN PRN Reason: Constipation Spironolactone (Aldactone) 25 mg PO [facility]
[2017-12-10] MEDS: oxyCODONE 5 MG TAB PO PRN ×2 (17:11→20:41)
--- NOTE | 2017-12-10 18:17 | CT ---
CT THORAX WITH CONTRAST: 12/10/2017 COMPARISON: Two view chest radiograph of 12/10/2017 (today) and chest CTA of 07/19/2010. TECHNIQUE: IV iodinated contrast media: Isovue-370 100 mL. FINDINGS: There is a new finding of a small right pleural effusion, with a dependent, freely layering component in the right posterior intrathoracic cavity base. More superiorly, lateral to the level of the hilum, there is an approximately 7.5 x 3 x 5.5 cm locula karl component of pleural effusion. Abutting its superior aspect, there is a thinner loculated compon ent of pleural fluid. The lungs are essentially clear. There is no left-sided pleural effusion. No central pulmonary thro mboembolism. Ectasia and tortuosity of the thoracic aorta without aneurysm or dissection. Stents ve rsus atherosclerotic calcification of the LAD. Prosthetic mitral valve. Again noted are the bilater al pedicle screws at multiple levels in the lumbar spine. T12 ribs are hypoplastic. Interval worsen ing of severe degenerative disk disease at T10-T11, with vacuum disk phenomenon and chronic right lat eral subluxation of T10 on T11. Cardiomegaly with four chamber dilation. Hepatic cysts. Left renal cyst. IMPRESSION: 1. Right-sided pseudotumor due to lateral loculated components of right pleural effusion. 2. Freely layering component of right pleural effusion at right posterior base. 3. Cardiomegaly. 4. No acute pulmonary findings. 5. Thoracic spondylosis with severe degenerative disk disease at T10-T11. NAZ Vyas POS: BRITTANY
[2017-12-10] MEDS: Apixaban 5 MG TAB PO SCH (20:40)
[2017-12-11] MEDS: Ampicillin/Sulbactam 1.5 GM in Sodium Chloride 0.9% 100 ML IVPB SCH (03:44)
[2017-12-11 07:41] VITALS: BP 161/88; TEMP 97
[2017-12-11] MEDS ORDERED: Spironolactone 25 MG TAB PO SCH (08:00)
[2017-12-11] MEDS ORDERED: Furosemide 40 MG TAB PO SCH (09:00)
[2017-12-11] MEDS: Isosorbide Dinitrate 20 MG TAB PO SCH (10:06)
[2017-12-11] MEDS: Apixaban 5 MG TAB PO SCH (10:06)
[2017-12-11] MEDS: Gabapentin 300 MG CAP PO SCH (10:06)
[2017-12-11] MEDS: Clopidogrel Bisulfate 75 MG TAB PO SCH (10:06)
[2017-12-11] MEDS: Losartan 25 MG TAB PO SCH (10:08)
[2017-12-11] MEDS: Carvedilol 6.25 MG TAB PO SCH (10:22)
--- NOTE | 2017-12-11 16:54 | PRG ---
DATE OF SERVICE: 12/11/2017 Mr. Woods is doing well. He was admitted over the weekend. He has diuresed. His most recent ech o showed an LVEF of 20%-25%. No significant MR present. PHYSICAL EXAMINATION: VITAL SIGNS: Blood pressure 131/80, pulse 70, respirations 20. LUNGS: Clear to auscultation. HEART: Irregularly irregular. ABDOMEN: Soft, nontender, nondistended. EXTREMITIES: No edema. IMPRESSION: 1. Acute on chronic systolic heart failure. 2. Status post mitral valve repair. 3. ? pneumonia. RECOMMENDATIONS: At this point, continue current medical therapy. We would reinstitute Digoxin 0.12 5 mg one p.o. q.a.m. Would also continue with carvedilol in addition to Eliquis and isosorbide. The patient is also on losartan. Follow up with Mireille Nash PA-C in 1-2 weeks.
--- NOTE | 2017-12-12 02:36 | DIS ---
DATE OF ADMISSION: 12/07/2017 DATE OF DISCHARGE: 12/11/2017 DISCHARGE DIAGNOSES: As of the followin. Nausea, vomiting. 2. Pneumonia. 3. Urinary tract infection. 4. Acute on chronic systolic heart failure. HOSPITAL COURSE: The patient is a very pleasant 82-year-old male who initially presented with vague symptoms of abdominal pain, nausea, vomiting, and dizziness. Patient stated also further that he had not taken his medications for the past one and a half weeks. The patient had recently had a couple of stents placed in [place] and also had a mitral clip. The patient at that time was started on all his home medications and initially underwent some diuresing. The patient was found to have a UTI and also had some abnormalities of possible aspiration pneumonia initially. The patient's symptoms cont inued to improve throughout the hospital stay. He was also seen by Cardiology. The patient's urine culture indicated Klebsiella pneumonia and Proteus mirabilis, which was pansensitive. Patient's ches t x-ray was repeated which indicated possible right chest wall as loculated effusion. At this time, a CT chest was done for further investigation of this loculated fluid since patient did not have on h is x-ray in September of this year. I did discuss the case with Pulmonary in regard to the findings, who thought that this was most likely secondary to this recent procedure and possibly just some fluid and would resolve once he continued his diuretics. Patient also was given a slip to recheck his chest x -ray in about 3-4 weeks. He will also follow up with his primary care doctor for a repeat chest x-ra y. HOME MEDICATIONS: His home medications are as of the following. Potassium chloride 15 every third d ay, gabapentin 1 daily, b.i.d., Protonix 1 daily, Losartan, this dose was continued one p.o. da jose, isosorbide 1 tablet p.o. t.i.d., gabapentin 200 mg b.i.d., furosemide 1 tablets daily, clopidog rel 75 mg daily, cefdinir 300 mg p.o. q.12 hours, carvedilol, this was 6.25 b.i.d., Soma 250 q.a.m., Lipitor 1 at bedtime. PHYSICAL EXAMINATION: VITAL SIGNS: Temperature of 97.0, 77, 18, 98% on room air, blood pressure 131/80. GENERAL: He is awake, alert, oriented x3, in no apparent distress. CARDIOVASCULAR: S1, S2 present. No murmurs, rubs or gallops. ABDOMEN: Soft, nontender. Bowel sounds are present x2. EXTREMITIES: No edema. Pedal pulses present x2. Of note, the patient stated that he had a really bad night last night after he was started on spirono lactone and also after his Coreg was titrated up. We will put the patient back on his home medicatio n. Only digoxin was discontinued. Otherwise, all of his home medications were continued except for , which was changed from 2.5 b.i.d. to 5 mg b.i.d. and patient was made aware of these changes. He was given a slip for a BMP to be done in the next couple of days and also a slip for his chest x- ray to be done in 3 weeks. The results to be faxed to his primary care doctor. He will follow up [facility] and PCP as outpatient.
== END 2017-12-11 12:27 | disposition home or self-care (01) | DRG 291 ==
LOC: ERS 12:56 → 2NO 18:47
PROVIDERS: ADMIT Internal Medicine; ATTEND Internal Medicine
DX: I11.0 Hypertensive heart disease with heart failure (principal); J18.9 Pneumonia, unspecified organism; N39.0 Urinary tract infection, site not specified; I50.43 Acute on chronic combined systolic (congestive) and diastolic (congestive) heart failure; E78.5 Hyperlipidemia, unspecified; M19.90 Unspecified osteoarthritis, unspecified site; I16.0 Hypertensive urgency; Z95.2 Presence of prosthetic heart valve; I34.0 Nonrheumatic mitral (valve) insufficiency; Z87.891 Personal history of nicotine dependence; I25.10 Atherosclerotic heart disease of native coronary artery without angina pectoris; B96.1 Klebsiella pneumoniae [K. pneumoniae] as the cause of diseases classified elsewhere; B96.4 Proteus (mirabilis) (morganii) as the cause of diseases classified elsewhere; I42.0 Dilated cardiomyopathy; I48.2 Chronic atrial fibrillation; Z95.5 Presence of coronary angioplasty implant and graft; Z79.01 Long term (current) use of anticoagulants
CPT/HCPCS: 36415; 71045; 71046; 71260; 80048; 80053; 81003; 81015; 82553; 83690; 83880; 84484; 85025; 87077; 87086; 87186; 90471; 90670; 93005; 93306; 93798; 96365; 96375; A4216; G0009; G8978-GP-CJ; G8979-GP-CJ; G8980-GP-CJ; G8996-GN-CI; G8997-GN-CI; J0295; J0696; J1940; J7050

== ENCOUNTER 2018-02-01 19:15 | Emergency (ER) | payer MEDICARE ==
[2018-02-01 20:10] LABS: #Basophils 0.1 thou/uL (0.0-0.2); #Lymphocytes 1.8 thou/uL (1.20-3.40); #Monocytes 0.5 thou/uL (0.11-0.59); #Neutrophils 3.4 thou/uL (1.40-6.50); %Basophils 1.1 % (0.0-1.0); %Eosinophils 0.8 % (0.0-10.0); %Lymphocytes 31.9 % (21.0-51.0); %Monocytes 7.9 % (0.0-10.0); %Neutrophils 58.2 % (42.0-75.0); Hemoglobin 13.7 g/dL (14.0-18.0); Mean Corpuscular HGB CONC 31.4 g/dL (32.0-36.0); Mean Corpuscular Hemoglobin 31.9 pg (27.0-31.0); Mean Platelet Volume 8.2 fL (7.4-10.4); Platelet Count 149 thou/uL (130-400); RBC Distribution Width 13.9 % (11.5-14.5); Red Blood Cell (RBC) Count 4.31 mill/uL (4.70-6.10); White Blood Cell (WBC) Count 5.8 thou/uL (4.8-10.8)
[2018-02-01 20:34] LABS: ALT (SGPT) 18 U/L (8-55); AST (SGOT) 18 U/L (5-34); Albumin 3.4 g/dL (3.4-4.8); Alkaline Phosphatase 57 U/L (40-150); Anion Gap 11 mmol/L (10-20); BUN (Urea Nitrogen) 28 mg/dL (8.4-25.7); Bilirubin, Total 0.9 mg/dL (0.2-1.2); CK (CPK) 90 U/L (30-200); Calc. Creatinine Clearance 0 mL/min (70-130); Calcium 8.9 mg/dL (7.8-10.44); Carbon Dioxide 33 mmol/L (23-31); Chloride 102 mmol/L (98-107); Estimated GFR-MDRD 55; Globulin 2.9 g/dL (2.4-3.5); Glucose 102 mg/dL (83-110); Potassium 4.1 mmol/L (3.5-5.1); Protein, Total 6.3 g/dL (5.8-8.1); Sodium 142 mmol/L (136-145)
[2018-02-01 20:39] LABS: CKMB 2.6 ng/mL (0-6.6); Troponin I 0.024 ng/mL (< 0.028)
[2018-02-01] MEDS ORDERED: Morphine 2 MG/ML SYRINGE ONE ×2 (21:34→23:31)
--- NOTE | 2018-02-01 23:26 | ULT ---
RIGHT GROIN PSEUDOANEURYSM EVALUATION: 02/01/18 HISTORY: Right groin pain. Catheterization in October. FINDINGS: Superficial to the femoral vessels, a lobulated fluid collection that does not compress measures up t o 4.9 cm length x 2.2 cm width x 1.8 cm depth. IMPRESSION: Large lobular cystic lesion within the subcutaneous tissues superficial to the right common femoral v essels. This may represent a resolving hematoma. POS: PHI
== END 2018-02-02 00:05 | disposition home or self-care (01) ==
LOC: ERS 19:15
DX: L76.34 Postprocedural seroma of skin and subcutaneous tissue following other procedure (principal); I48.2 Chronic atrial fibrillation; I10 Essential (primary) hypertension; M19.90 Unspecified osteoarthritis, unspecified site; E78.5 Hyperlipidemia, unspecified
CPT/HCPCS: 36415; 76936; 80053; 82553; 84484; 85025; 93005; 96374; 96376; J2270

== ENCOUNTER 2018-03-11 13:42 | Outpatient (CLI) | payer MEDICARE ==
--- NOTE | 2018-03-11 16:06 | ULT ---
SOFT TISSUE ULTRASOUND OF RIGHT INGUINAL REGION, RIGHT LOWER EXTREMITY: CLINICAL HISTORY: Pain. FINDINGS: There is a hypoechoic lobular structure of the regional soft tissues of the right inguinal region wit h mild internal echogenicity. This may relate to a liquified hematoma with organizing internal septa tions. There is no obvious surrounding inflammatory edema to confirm inflammation related to abscess , although this should be correlated with physical exam. Doppler interrogation of this region does n ot reveal internal flow to indicate pseudoaneurysm. No obvious herniation of bowel content is seen. IMPRESSION: Lobular hypoechoic focus with mild internally increased echogenicity which may relate to an organizin g hematoma, as discussed above. Recommend appropriate clinical management to confirm resolution. Sh ould finding persist, imaging followup may be obtained. POS: TPC
== END 2018-03-11 13:43 | disposition home or self-care (01) ==
LOC: ULT 13:42
PROVIDERS: ATTEND Internal Medicine Cardiovascular Disease
DX: R10.31 Right lower quadrant pain (principal)
CPT/HCPCS: 76999

== ENCOUNTER 2018-04-15 06:30 | Outpatient (CLI) | payer MEDICARE ==
[2018-04-15 14:16] LABS: Hemoglobin 12.8 g/dL (14.0-18.0); Mean Corpuscular HGB CONC 32.9 g/dL (32.0-36.0); Mean Corpuscular Hemoglobin 32.9 pg (27.0-31.0); Mean Corpuscular Volume 99.9 fL (78.0-98.0); Mean Platelet Volume 7.9 fL (7.4-10.4); Platelet Count 220 thou/uL (130-400); RBC Distribution Width 12.6 % (11.5-14.5); Red Blood Cell (RBC) Count 3.89 mill/uL (4.70-6.10)
[2018-04-15 14:30] LABS: Anion Gap 12 mmol/L (10-20); BUN (Urea Nitrogen) 19 mg/dL (8.4-25.7); Calc. Creatinine Clearance 0 mL/min (70-130); Calcium 8.9 mg/dL (7.8-10.44); Carbon Dioxide 31 mmol/L (23-31); Chloride 102 mmol/L (98-107); Estimated GFR-MDRD 77; Glucose 87 mg/dL (83-110); Potassium 3.9 mmol/L (3.5-5.1); Sodium 141 mmol/L (136-145)
--- NOTE | 2018-04-15 17:23 | EKG ---
Test Reason : Blood Pressure : / mmHG Vent. Rate : 072 BPM Atrial Rate : 064 BPM P-R Int : 000 ms QRS Dur : 100 ms QT Int : 408 ms P-R-T Axes : 000 108 018 degrees QTc Int : 446 ms Atrial fibrillation Rightward axis Nonspecific ST and T wave abnormality Abnormal ECG When compared with ECG of 01-FEB-2018 19:42, Vent. rate has decreased BY 42 BPM QRS axis Shifted right Confirmed by DR. Juliana MOURA ([id number]) on 04/15/2018 5:23:36 PM Referred By: SAMEER Confirmed By:DR. Juliana MOURA
== END 2018-04-15 06:31 | disposition home or self-care (01) ==
LOC: LABBT 06:30
PROVIDERS: ATTEND Surgery
DX: Z01.818 Encounter for other preprocedural examination (principal); K40.90 Unilateral inguinal hernia, without obstruction or gangrene, not specified as recurrent
CPT/HCPCS: 80048; 85027; 93005; 93010

== ENCOUNTER 2018-04-19 10:28 | Day surgery (SDC) | payer MEDICARE ==
[2018-04-15 12:31] VITALS: BMI 24.3
[2018-04-19] MEDS ORDERED: CEFAZOLIN 2 GM/50 ML BAG ONE (11:06)
[2018-04-19] MEDS ORDERED: Fentanyl 100 MCG/2 ML VIAL ONE ×2 (11:20)
[2018-04-19] MEDS ORDERED: Bupivacaine/Epinephrine 0.25% 30 ML VIAL ONE (11:35)
[2018-04-19] MEDS ORDERED: Lidocaine 2% PF 5 ML VIAL ONE (11:35)
[2018-04-19] MEDS ORDERED: Bupivacaine PF 0.5% 30 ML VIAL ONE (11:36)
[2018-04-19] MEDS ORDERED: Albuterol Sulfate HFA (OR ONLY) ONE (11:56)
[2018-04-19] MEDS ORDERED: Phenylephrine HCL 10 MG/ML VIAL ONE (11:58)
[2018-04-19] MEDS ORDERED: Norepinephrine 4 MG/4 ML VIAL ONE (11:58)
[2018-04-19] MEDS ORDERED: KETAMINE 100 MG/ML (5ML VIAL) ONE (11:59)
[2018-04-19] MEDS ORDERED: PHENYLEPHRINE-NS 100 MCG/ML 10 ML SYRINGE ONE (16:13)
[2018-04-19] MEDS ORDERED: Ondansetron PF 4 MG/2 ML Vial ONE (16:13)
[2018-04-19] MEDS ORDERED: Lidocaine 1% PF 5 ML VIAL ONE (16:13)
--- NOTE | 2018-04-22 13:08 | OP ---
DATE OF PROCEDURE: 04/19/2018 PREOPERATIVE DIAGNOSIS: Right inguinal hernia. POSTOPERATIVE DIAGNOSIS: Right inguinal hernia. PROCEDURE: Right inguinal hernia repair with mesh, PHS extended. ANESTHESIA: General. ESTIMATED BLOOD LOSS: Minimal. COMPLICATIONS: None. SPECIMENS: None. FINDINGS: Right inguinal hernia. DESCRIPTION OF PROCEDURE: The patient was taken to the operating room and laid supine on the operating room table. After general anesthetic was obtained, the right groin and abdomen were shaved, prepped, and draped in a sterile fashion. Oblique incision was made above the pubic tubercle and the right lower quadrant. Cautery was dissected down through the Jerome's to expose the external oblique. External oblique fibers were opened along the course of the external ring. Contents on the inguinal canal were dissected from the backside of the external oblique. The ilioinguinal nerve was found and segmentally removed to prevent postop pain. Contents on the inguinal canal were dissected from the backside of the external oblique. The cord structures were mobilized on the pubic tubercle using a Lee drain. Dissection superiorly and medially on the cord showed there to be an indirect hernia sac. A high ligation of which was performed using 2-0 silk. The stump was inverted back into the preperitoneal space through the internal ring. The preperitoneal space was bluntly dissected through the internal ring. PHS extended mesh was brought into the sterile field. The underlay was placed through the internal ring and its fibers laid out flat against the posterior abdominal wall. The overlay was laid in the floor of the inguinal canal. The overlay was sewn distally to the pubic tubercle, medially to the transverse arch, laterally to the shelving edge of the ligament using permanent braided suture. The mesh was cut laterally to incorporate the internal ring and wrapped around. It was reformed by affixing the two ends of mesh to the shelving edge of inguinal ligament. The extra mesh was tucked back under the external oblique proximally. The wound was irrigated. Local anesthetic was applied. The external oblique was closed using Vicryl suture. Jerome's was closed using Vicryl suture. The skin was closed using running 4-0 Monocryl and Dermabond. The patient was sent to Recovery in stable condition. All instrument counts, needle counts, and lap counts were correct. Job ID: [id number]
== END 2018-04-19 15:30 | disposition home or self-care (01) ==
LOC: SDC 10:28
PROVIDERS: ATTEND Surgery
PROC: 0YU54JZ Supplement Right Inguinal Region with Synthetic Substitute, Percutaneous Endoscopic Approach (ICD-10-PCS; principal; 2018-04-19)
DX: K40.90 Unilateral inguinal hernia, without obstruction or gangrene, not specified as recurrent (principal); I10 Essential (primary) hypertension; Z98.1 Arthrodesis status; Z90.49 Acquired absence of other specified parts of digestive tract; Z79.1 Long term (current) use of non-steroidal anti-inflammatories (NSAID); Z79.01 Long term (current) use of anticoagulants; Z79.899 Other long term (current) drug therapy; Z98.890 Other specified postprocedural states
CPT/HCPCS: 49650; C1781; J0131; J2001; J2370; J2405; J3010; J3490; S0020

== ENCOUNTER 2019-01-02 14:23 | Outpatient (CLI) | payer MEDICARE ==
--- NOTE | 2019-01-02 22:14 | HP ---
HISTORY OF PRESENT ILLNESS: Mr. Sree Woods is a very pleasant 83-year-old gentleman who presents to the [facility] for evaluation for negative pressure therapy following excision of a right pretibial lesion. The patient is to undergo removal of the right pretibial lesion on 01/20/2019 or 01/27/[address] Venegas of Plastic Surgery. The patient has been told that he will be referred to the Wound Center for assistance with wound VAC dressing changes. The patient has no complaints today. He denies any fever or chills. PAST MEDICAL HISTORY: 1. Hypertension. 2. Osteoarthritis. 3. Gastroesophageal reflux disease. 4. Coronary artery disease. PAST SURGICAL HISTORY: 1. Back surgery x7. 2. Neck surgery x3. 3. Right total hip arthroplasty. 4. Bilateral shoulder surgery. 5. Melanoma resection x2. 6. Cholecystectomy. 7. Mitral valve replacement. 8. Herniorrhaphy. MEDICATIONS: 1. Coreg. 2. Eliquis. 3. Gabapentin. 4. Plavix. 5. Isordil. 6. Protonix. 7. Potassium chloride. 8. Lasix. 9. Oxycodone. ALLERGIES: NO KNOWN DIAGNOSED ALLERGIES. SOCIAL HISTORY: Social history significant for tobacco use of up to 2 packs of cigarettes per day for 10 to 15 years. The patient states that he stopped smoking 30 years ago. The patient denies any history of EtOH use. FAMILY HISTORY: Family history is negative for diabetes mellitus or coronary artery disease. PHYSICAL EXAMINATION: VITAL SIGNS: Temperature 98, pulse 78, respirations 20, blood pressure 143/98. GENERAL: An 83-year-old gentleman sitting on chair in examination room, in no acute distress. HEENT: Normocephalic, atraumatic. NECK: No nuchal rigidity. CHEST: Clear to auscultation. CV: Regular rate and rhythm. ABDOMEN: Soft. EXTREMITIES: A lesion of the right pretibial region is present, which measures approximately 0.5 x 1.0 cm. No serous or purulent drainage is associated with the lesion. No cellulitis of the right lower extremity is appreciated. No maceration of the skin of the right pretibial region is present. NEUROLOGIC: Grossly nonfocal. ASSESSMENT AND PLAN: 1. Lesion of right tibial region as described above. The patient is to undergo excision by Plastic surgery on 01/20/2019 or alternatively on 01/27/2019, negative pressure therapy will be initiated subsequent to surgery with dressing changes of the wound VAC here in the Wound Center. The patient understands and is in agreement with the preceding treatment plan. The patient will return to clinic after excision of the lesion of the right tibial region. 2. Hypertension. 3. Osteoarthritis. 4. Gastroesophageal reflux disease. 5. Coronary artery disease. Job ID: [id number]
== END 2019-01-02 14:24 | disposition home or self-care (01) ==
LOC: WCC 14:23
PROVIDERS: ATTEND Family Medicine
DX: M89.9 Disorder of bone, unspecified (principal)
CPT/HCPCS: 97139; 97602; G0463; 99203

== ENCOUNTER 2019-01-07 19:30 | Outpatient (CLI) | payer MEDICARE | END 2019-01-07 19:31 | disposition home or self-care (01) | LOC: SLEEPLAB 19:30 | PROVIDERS: ATTEND Internal Medicine | DX: G47.33 Obstructive sleep apnea (adult) (pediatric) (principal); G47.31 Primary central sleep apnea; I48.91 Unspecified atrial fibrillation; I49.3 Ventricular premature depolarization | CPT/HCPCS: 95811 ==

== ENCOUNTER 2019-01-21 00:42 | Observation (INO) | payer MEDICARE ==
[2019-01-21 01:40] LABS: #Eosinphils 0.1 thou/uL (0.0-0.7); #Lymphocytes 2.2 thou/uL (1.20-3.40); #Monocytes 0.6 thou/uL (0.11-0.59); #Neutrophils 2.4 thou/uL (1.40-6.50); %Basophils 0.4 % (0.0-1.0); %Eosinophils 2.4 % (0.0-10.0); %Lymphocytes 41.3 % (21.0-51.0); %Monocytes 11.9 % (0.0-10.0); Hemoglobin 13.6 g/dL (14.0-18.0); Mean Corpuscular HGB CONC 33.2 g/dL (32.0-36.0); Mean Corpuscular Hemoglobin 33.1 pg (27.0-31.0); Mean Corpuscular Volume 99.6 fL (78.0-98.0); Mean Platelet Volume 8.1 fL (7.4-10.4); Platelet Count 156 thou/uL (130-400); Red Blood Cell (RBC) Count 4.11 mill/uL (4.70-6.10); White Blood Cell (WBC) Count 5.4 thou/uL (4.8-10.8)
[2019-01-21 01:46] LABS: INR-International Normal Ratio 1.3; Prothrombin Time 16.3 SEC (12.0-14.7)
[2019-01-21 01:47] LABS: PTT 33.2 SEC (22.9-36.1)
[2019-01-21 02:01] LABS: ALT (SGPT) 9 U/L (8-55); AST (SGOT) 20 U/L (5-34); Albumin 3.7 g/dL (3.4-4.8); Alkaline Phosphatase 86 U/L (40-110); Anion Gap 13 mmol/L (10-20); BUN (Urea Nitrogen) 27 mg/dL (8.4-25.7); Bilirubin, Total 0.9 mg/dL (0.2-1.2); Calc. Creatinine Clearance 0 mL/min (70-130); Calcium 8.8 mg/dL (7.8-10.44); Carbon Dioxide 29 mmol/L (23-31); Chloride 103 mmol/L (98-107); Estimated GFR-MDRD 52; Globulin 3.2 g/dL (2.4-3.5); Glucose 86 mg/dL (83-110); Potassium 4.4 mmol/L (3.5-5.1); Protein, Total 6.9 g/dL (5.8-8.1); Sodium 141 mmol/L (136-145)
[2019-01-21] MEDS ORDERED: Lidocaine 1% w/Epinephrine 1:100K 20 ML VIAL ONE (04:18)
[2019-01-21] MEDS ORDERED: Acetaminophen 325 MG TAB ONE (04:26)
[2019-01-21] MEDS ORDERED: Ondansetron ODT 4 MG TAB SL PRN (07:29)
[2019-01-21] MEDS ORDERED: Ondansetron PF 4 MG/2 ML Vial IVP PRN ×2 (07:29→07:56)
[2019-01-21] MEDS ORDERED: Zolpidem Tartrate 5 MG TAB PO PRN (07:56)
[2019-01-21] MEDS ORDERED: Loratadine 10 MG TAB PO PRN (07:56)
[2019-01-21] MEDS ORDERED: Bisacodyl 10 MG SUPP PR PRN (07:56)
[2019-01-21] MEDS ORDERED: Diabetic Tussin 200 MG/10 ML UDCUP PO PRN (07:56)
[2019-01-21] MEDS ORDERED: HYDROcodone/Acetaminophen 5/325 mg Tablet PO PRN (07:56)
[2019-01-21] MEDS ORDERED: Calcium Carbonate 500 MG ChewTAB PO PRN (07:56)
[2019-01-21] MEDS ORDERED: Sodium Chloride 0.65% Nasal 44 ML BOT EA NARE PRN (07:56)
[2019-01-21] MEDS ORDERED: hydrALAZINE 20 MG/ML VIAL SLOW IVP PRN (07:56)
[2019-01-21] MEDS ORDERED: Nitroglycerin 0.4 MG TAB (25 Tab Bottle) SL PRN (07:56)
[2019-01-21] MEDS ORDERED: Ondansetron ODT 4 MG TAB PO PRN (07:56)
[2019-01-21] MEDS ORDERED: Loperamide HCl 2 MG CAP PO PRN (07:56)
[2019-01-21] MEDS ORDERED: Cepastat Lozenges 1 LOZ PO PRN (07:56)
--- NOTE | 2019-01-21 08:18 | RAD ---
PORTABLE CHEST: HISTORY: Chest pain. COMPARISON: 12/10/2017. FINDINGS: Right side effusion is again noted. The lungs appear clear with no focal infiltrate or vascular vasile estion. Mild cardiomegaly with prosthetic heart valve and single-lead pacemaker device is noted. De generative changes at both shoulders. IMPRESSION: Evidence of small right pleural effusion. No acute lung process. POS: C
[2019-01-21] MEDS ORDERED: Acetaminophen 325 MG TAB PO PRN (08:41)
[2019-01-21 08:48] LABS: Troponin I 0.027 ng/mL (< 0.028)
[2019-01-21] MEDS ORDERED: Aspirin 81 mg Enteric Coated Tablet PO SCH (09:00)
[2019-01-21] MEDS ORDERED: Apixaban 5 MG TAB PO SCH (09:00)
[2019-01-21] MEDS ORDERED: Isosorbide Dinitrate 20 MG TAB PO SCH (09:00)
[2019-01-21] MEDS: Acetaminophen 325 MG TAB PO PRN ×2 (10:53→15:50)
--- NOTE | 2019-01-21 11:08 | HP ---
PRIMARY CARE PHYSICIAN: Dr. Aldo Ocampo. REASON FOR ADMISSION: Chest pain. HISTORY OF PRESENT ILLNESS: An 83-year-old male who has underlying history of chronic systolic heart failure with EF 20% to 25% and atrial fibrillation as well as history of mitral valve surgery with a bioprosthetic mitral valve, who presented to emergency room with complaint of chest pain. The patient reports that he had chest pain for about 2 months. Chest pain is about 5/10 in intensity. He describes pain starts in his upper back on left side and comes forward towards his heart. It gets worse when he takes deep breath as well as when he leans forward. He denies any exertional chest pain. He denies any associated nausea, vomiting, and diaphoresis. This pain lasts for few minutes and subsided by itself in the certain position. He denies any orthopnea, PND, or leg swelling. He denies any fever, cough, or shortness of breath. In the emergency room, this patient had electrocardiogram, which was showing atrial fibrillation with T-inversion in lead I, aVL, V5, and V6. His heart score was about 6. Routine blood test in the emergency room showed mild acute kidney injury and his troponin was negative. The patient also had surgery for skin cancer yesterday at [facility], and since then, the patient was having bleeding on his surgical site, it was required dressing in emergency room, and subsequently, the patient was admitted to telemetry floor for chest pain workup. He had mild acute kidney injury and he was given IV fluid 500 mL in emergency room. PAST MEDICAL HISTORY: Hypertension; dyslipidemia; severe osteoarthritis; severe mitral regurgitation, required bioprosthetic mitral valve; severe tricuspid regurgitation; chronic systolic heart failure; chronic anticoagulation with Eliquis; gastroesophageal reflux disease; and chronic low back pain. PAST SURGICAL HISTORY: Cholecystectomy, 7 back surgery, hip surgery, 3 neck surgery, mitral valve replacement with bioprosthesis, cardiac catheterization with stent placement, and AICD placement. SOCIAL HISTORY: The patient is . He lives with his . He is currently ex-smoker, but he used to smoke about 1 pack per day. He drinks alcohol occasionally. He denies any other illicit drug abuse. REVIEW OF SYSTEMS: CONSTITUTIONAL: Negative for weight loss or gain, ability to conduct usual activities. SKIN: Negative for rash, itching. EYES: Negative for double vision, pain. ENT/MOUTH: Negative for nose bleeding, neck stiffness, pain, tenderness. CARDIOVASCULAR: Negative for palpitations, dyspnea on exertion, orthopnea. RESPIRATORY: Negative for shortness of breath, wheezing, cough, hemoptysis, fever or night sweats. GASTROINTESTINAL: Negative for poor appetite, abdominal pain, heartburn, nausea, vomiting, constipation, or diarrhea. GENITOURINARY: Negative for urgency, frequency, dysuria, nocturia. MUSCULOSKELETAL: Negative for pain, swelling. NEUROLOGIC/PSYCHIATRIC: Negative for anxiety, depression. ALLERGY/IMMUNOLOGIC: Negative for skin rash, bleeding tendency. All review of systems reviewed with him and negative except as mentioned in the HPI. PSYCHIATRIC HISTORY: Reviewed and negative. ALLERGIES: NO KNOWN DRUG ALLERGY. FAMILY HISTORY: No strong family history of premature coronary artery disease, stroke, or cancer current. CURRENT HOME MEDICATIONS: 1. Plavix 75 mg daily. 2. Potassium chloride 20 mEq p.o. daily. 3. Eliquis 5 mg b.i.d. 4. Coreg 6.25 mg b.i.d. 5. Lasix 40 mg daily. 6. Gabapentin 300 mg p.o. b.i.d. 7. Protonix 40 mg p.o. daily. PHYSICAL EXAMINATION: VITAL SIGNS: Currently, blood pressure 179/89, pulse 69, respiratory rate of 12, saturation 95%, and temperature 97.3. Weight 175 pounds. GENERAL: The patient is currently alert and awake, in no obvious acute distress. HEENT: Head; normocephalic, atraumatic. Face; surgical site is covered with dressing and site is bleeding. NECK: Supple. No JVD. No thyromegaly. No meningeal signs of irritation. LUNGS: Clear to auscultation without any rhonchi or rales. CARDIAC: S1 and S2, irregular. Systolic murmur noted at the apex. No gallop. No rub. ABDOMEN: Soft. Bowel sounds present. Nontender. Nondistended. No organomegaly. No mass. No suprapubic tenderness. BACK: Unremarkable. No CVA tenderness. EXTREMITIES: Upper extremity, passive movement of all joints are normal. Lower extremity, no edema. Good distal pulsation. No calf tenderness. SKIN: No skin rash. HEMATOLOGICAL SYSTEM: No lymphadenopathy. NEUROLOGIC: Nonfocal examination. SIGNIFICANT LABORATORY DATA: CBC; WBC 5.4, hemoglobin 13.6, and platelet 156. INR 1.3. BMP; sodium 141, potassium 4.4, chloride 103, carbon dioxide 29, BUN 27, creatinine 1.32, glucose 86, and calcium 8.8. LFT; AST 20, ALT 9, alkaline phosphatase 86, and albumin 3.7. Troponin negative x3. DIAGNOSTIC DATA: EKG showing atrial fibrillation with nonspecific ST-T changes in lateral lead. Old previous record reviewed. ASSESSMENT AND PLAN: 1. Chest pain. The patient's chest pain description is nonspecific and nonanginal, but he has underlying severe cardiomyopathy. The patient had a cardiac catheterization done in 2018. At that time, the patient was found with severe mitral valve disease. Currently, we will consult Cardiology. Troponin is already negative. An EKG is not showing any acute changes. Further investigation will defer to Cardiology. 2. Chronic atrial fibrillation, currently rate controlled. We have to hold anticoagulation because of bleeding at surgical site. Continue Coreg 6.25 mg p.o. b.i.d. 3. Coronary artery disease. Continue low dose of aspirin 81 mg p.o. daily. Check lipid profile tomorrow. Continue Coreg and isosorbide dinitrate. 4. Cardiomyopathy with chronic systolic heart failure, stage C, [place] [employer] stage II, currently euvolemic. We will continue Lasix 40 mg daily and Coreg 6.25 mg b.i.d. We will add lisinopril 5 mg b.i.d. 5. Chronic low back pain. Continue gabapentin 300 mg p.o. b.i.d. 6. Gastroesophageal reflux disease. We will continue Protonix 40 mg p.o. daily. 7. Acute kidney injury. The patient was given IV fluid and we will repeat BMP tomorrow. 8. Surgical site bleeding. We will hold on Eliquis therapy for now because of bleeding and we are also going to hold Plavix for today. We will defer antiplatelet therapy and anticoagulant therapy to Cardiology. 9. Deep venous thrombosis prophylaxis. Sequential compression boots. 10. Gastrointestinal prophylaxis. Protonix 40 mg p.o. daily. CODE STATUS: The patient is full code. DISPOSITION PLAN: Based on clinical course, we are expecting the patient's stay in hospital 24 hours. Plan of care discussed with the patient in detail. Job ID: [id number]
[2019-01-21] MEDS: Gabapentin 300 MG CAP PO SCH ×2 (12:06→21:24)
[2019-01-21] MEDS: Furosemide 40 MG TAB PO SCH (12:06)
[2019-01-21] MEDS: Carvedilol 6.25 MG TAB PO SCH ×2 (12:07→21:23)
--- NOTE | 2019-01-21 13:34 | CON ---
DATE OF CONSULTATION: HISTORY OF PRESENT ILLNESS: The patient is an unfortunately 83-year-old gentleman, who presents with profuse bleeding after undergoing surgery for a skin cancer. The patient has a history of coronary artery disease and an ischemic cardiomyopathy. He has also had several stents placed. The patient underwent minimally invasive mitral valve repair. The patient also has had an AICD. The patient has chronic atrial fibrillation and is on his anticoagulation therapy. He reports for the past 2 months he has had substernal chest pain, occurs with and without exertion. The patient was in his usual state of health when he underwent dermatological surgery, he had profuse bleeding. He was continued on his Eliquis during the procedure. The bleeding could not be stopped, and he came to the emergency room. PAST MEDICAL HISTORY: 1. Coronary artery disease. 2. Chronic atrial fibrillation. 3. Ischemic cardiomyopathy. 4. Status post mitral valve repair. 5. Hypertension. 6. Dyslipidemia. PAST SURGICAL HISTORY: Cholecystectomy, back surgery,and neck surgery, mitral valve repair, hip surgery. SOCIAL HISTORY: Nonsmoker. MEDICATIONS: See nursing notes. ALLERGIES: NO KNOWN DRUG ALLERGIES. PHYSICAL EXAMINATION: GENERAL: This is an ill-appearing gentleman, who is bandaged around his scar of his face. NECK: Showed no jugular venous distention. LUNGS: Clear to auscultation. HEART: Irregular rate and rhythm. Normal S1, S2. ABDOMEN: Nondistended. EXTREMITIES: Showed no edema. VASCULAR: Radial pulses are 2+. LABORATORY RESULTS: White blood cell count 5.4, hemoglobin 13.6, hematocrit 40.9, platelets 156. Sodium 144, potassium 4.4, chloride 103, bicarbonate 29, BUN 27, creatinine 1.3. IMAGING STUDIES: His EKG revealed atrial fibrillation with a nonspecific ST-T wave abnormality. IMPRESSION: 1. Hemorrhage status post skin surgery removal. 2. Chest pain with some features suggestive of angina. 3. History of percutaneous transluminal coronary angioplasty and stent placement. 4. History of mitral valve replacement. 5. Hypertension. 6. Dyslipidemia. This gentleman presents with persistent hemorrhage. Unfortunately, he continued on Eliquis around his procedure. This medication has been discontinued. Would hold his antiplatelet medications at this time as well with his persistent bleeding. Further evaluation and recommendations will follow. Job ID: [id number] [facility]
[2019-01-21] MEDS ORDERED: Isosorbide Mononitrate (ER) 30 MG TAB PO SCH (15:00)
[2019-01-21] MEDS ORDERED: Famotidine 20 MG TAB PO SCH (21:00)
[2019-01-21] MEDS: Lisinopril 5 MG TAB PO SCH (21:23)
[2019-01-22 06:27] LABS: #Basophils 0.1 thou/uL (0.0-0.2); #Eosinphils 0.2 thou/uL (0.0-0.7); #Lymphocytes 1.9 thou/uL (1.20-3.40); #Monocytes 0.5 thou/uL (0.11-0.59); #Neutrophils 2.1 thou/uL (1.40-6.50); %Basophils 1.2 % (0.0-1.0); %Eosinophils 4.1 % (0.0-10.0); %Lymphocytes 40.4 % (21.0-51.0); %Monocytes 10.7 % (0.0-10.0); %Neutrophils 43.6 % (42.0-75.0); Hemoglobin 12.9 g/dL (14.0-18.0); Mean Corpuscular HGB CONC 33.3 g/dL (32.0-36.0); Mean Corpuscular Hemoglobin 32.9 pg (27.0-31.0); Mean Corpuscular Volume 98.9 fL (78.0-98.0); Mean Platelet Volume 8.4 fL (7.4-10.4); Platelet Count 134 thou/uL (130-400); RBC Distribution Width 12.8 % (11.5-14.5); Red Blood Cell (RBC) Count 3.93 mill/uL (4.70-6.10); White Blood Cell (WBC) Count 4.8 thou/uL (4.8-10.8)
[2019-01-22 06:44] LABS: Anion Gap 13 mmol/L (10-20); BUN (Urea Nitrogen) 24 mg/dL (8.4-25.7); Calc. Creatinine Clearance 54 mL/min (70-130); Calcium 8.8 mg/dL (7.8-10.44); Carbon Dioxide 29 mmol/L (23-31); Cardiac Risk 3.1 (Less than 4.5); Chloride 102 mmol/L (98-107); Cholesterol 116 mg/dl (< 200 Desired); Estimated GFR-MDRD 61; Glucose 85 mg/dL (83-110); HDL Cholesterol 37 mg/dL (>60 Neg Risk); LDL Cholesterol, Calculated 68 mg/dL; Sodium 140 mmol/L (136-145); Triglycerides 54 mg/dL (Less than 150)
[2019-01-22] MEDS: Acetaminophen 325 MG TAB PO PRN ×2 (06:58→12:31)
[2019-01-22] MEDS: Potassium Chloride 20 MEQ TAB PO SCH (06:58)
[2019-01-22] MEDS ORDERED: Aspirin Chewable 81 MG TAB PO SCH (09:00)
[2019-01-22] MEDS: Furosemide 40 MG TAB PO SCH (09:57)
[2019-01-22] MEDS: Gabapentin 300 MG CAP PO SCH ×2 (09:57→21:37)
[2019-01-22] MEDS: Lisinopril 5 MG TAB PO SCH ×2 (09:57→21:37)
[2019-01-22] MEDS: Carvedilol 6.25 MG TAB PO SCH ×2 (09:58→21:38)
[2019-01-22] MEDS: Isosorbide Mononitrate (ER) 30 MG TAB PO SCH (09:59)
[2019-01-22] MEDS: Senokot S 8.6-50 MG TAB PO PRN (12:35)
[2019-01-22 14:39] VITALS: BMI 26.6
--- NOTE | 2019-01-22 14:50 | PRG ---
DATE OF SERVICE: 01/22/2019 SUBJECTIVE: Mr. Woods is doing better. He states the bleeding has diminished. No chest pain pressure. Prior to admission, he was complaining of moderate to severe pain mainly with taking a deep breath. He also states it occurred with exertion. No other midline exacerbating or precipitating factors present. His hemoglobin remained stable. PAST MEDICAL HISTORY: CAD, status post stent placement, status post mitral valve repair, atrial fibrillation on anticoagulation therapy. OBJECTIVE: GENERAL: Patient is a pleasant male, who is in no acute distress. The patient appears their stated age. VITAL SIGNS: Blood pressure 144/74, pulse 66, and temperature 98.2. NEUROLOGIC: The patient is alert and oriented x3 with no focal neurologic deficits. HEENT: Sclerae without icterus. Mouth has moist mucous membranes with normal pallor. NECK: No JVD. Carotid upstroke brisk. No bruits bilaterally. LUNGS: Clear to auscultation with unlabored respirations. BACK: No scoliosis or kyphosis. CARDIAC: Irregularly irregular. ABDOMEN: Soft, nontender, nondistended. No peritoneal signs present. No hepatosplenomegaly. No abnormal striae. EXTREMITIES: 2+ femoral and 2+ dorsalis pedis pulses. No cyanosis, clubbing, or edema. SKIN: No gross abnormalities. PERTINENT LABORATORY DATA: Hemoglobin 12.9, creatinine 1.1. Troponin negative. IMPRESSION: 1. Atypical chest pain. 2. Coronary artery disease. 3. Status post stent placement. 4. Atrial fibrillation. 5. Bleeding after recent surgery. RECOMMENDATIONS: Hemoglobin appears to stabilize. His bleeding appears . At this point, I recommend continued medical therapy. His symptoms are likely due to pleurisy. He states his pain is much worse with deep inspiration. Current cardiac medications include carvedilol in addition to Lasix, isosorbide, and lisinopril. No changes present. All anticoagulation therapy due to recent bleeding. Otherwise, from my standpoint, I have no further recommendations. Job ID: [id number]
[2019-01-22] MEDS: oxyCODONE/Acetaminophen 5 mg/325 mg Tablet PO PRN ×2 (15:03→21:38)
--- NOTE | 2019-01-22 17:54 | PDOC.HOSPP ---
- Subjective Encounter Date: 01/22/19 Encounter Time: 17:35 Subjective: f/u for R facial bleeding after recent skin cancer removal while on Plavix/ Eliquis. Feels ok overall. - Objective Vital Signs & Weight: Vital Signs (12 hours) Temp Pulse Resp BP BP Pulse Ox 01/22/19 15:53 97.2 F L 65 16 121/76 65 L 01/22/19 11:38 98.2 F 66 16 144/74 H 95 01/22/19 09:58 121/64 01/22/19 09:57 61 01/22/19 08:00 97.7 F 61 16 121/64 94 L Weight Admit Weight 175 lb Weight 170 lb 2 oz I&O: 01/21/19 01/22/19 01/23/19 06:59 06:59 06:59 Intake Total 900 480 Balance 900 480 Result Diagrams: 01/22/19 05:36 01/22/19 05:36 Additional Labs: Laboratory Tests 09/24/17 09/24/17 09/25/17 18:07 18:07 04:27 Hgb Hct BUN Creatinine 1.51 H Creatine Kinase 239 H B-Natriuretic Peptide 1401.8 H 2121.0 H 09/26/17 01/21/19 01/21/19 03:41 01:33 01:33 Hgb 13.6 L Hct 40.9 L BUN 27 H Creatinine 1.32 H Creatine Kinase B-Natriuretic Peptide 2144.2 H EKG Reviewed by me: Yes (Tele - A-fib in 70's) Hospitalist ROS - Medication Medications: Active Medications Generic Name Dose Route Start Last Admin Trade Name Betoq PRN Reason Stop Dose Admin Acetaminophen 650 mg 01/21/19 07:56 01/22/19 12:31 Tylenol PO 650 mg Q4H PRN Administration Headache/Fever/Mild Pain (1-3) Calcium Carbonate 1,000 mg 01/21/19 07:56 01/21/19 09:48 Tums PO 1,000 mg Q4H PRN Administration Heartburn or Indigestion Carvedilol 6.25 mg 01/21/19 09:00 01/22/19 09:58 Coreg PO 6.25 mg BID FRANDY Administration Furosemide 40 mg 01/21/19 09:00 01/22/19 09:57 Lasix PO 40 mg DAILY FRANDY Administration Gabapentin 300 mg 01/21/19 09:00 01/22/19 09:57 Neurontin PO 300 mg BID FRANDY Administration Isosorbide Mononitrate 15 mg 01/22/19 09:00 01/22/19 09:59 Imdur Er PO 15 mg DAILY FRANDY Administration Lisinopril 5 mg 01/21/19 21:00 01/22/19 09:57 Zestril PO 5 mg BID FRANDY Administration Ondansetron HCl 4 mg 01/21/19 07:56 01/21/19 09:48 Zofran Odt PO 4 mg Q6H PRN Administration Nausea/Vomiting Oxycodone/Acetaminophen 1 tab 01/21/19 14:51 01/22/19 15:03 Percocet 5/325 PO 1 tab Q4H PRN Administration Pain 7-10 Pantoprazole Sodium 40 mg 01/21/19 09:00 01/22/19 09:58 Protonix PO 40 mg DAILY FRANDY Administration Potassium Chloride 20 meq 01/22/19 08:00 01/22/19 06:58 K-Dur PO 20 meq QAM-WM FRANDY Administration Senna/Docusate Sodium 2 tab 01/21/19 07:56 01/22/19 12:35 Senokot S PO 2 tab BID PRN Administration Constipation - Exam General Appearance: NAD, awake alert Eye: PERRL, anicteric sclera ENT: normocephalic atraumatic, no oropharyngeal lesions Neck: supple, symmetric, no JVD, no thyromegaly Respiratory: CTAB, no wheezes, no rales, no ronchi Gastrointestinal: soft, non-tender, non-distended, normal bowel sounds, no palpable masses Extremities: no cyanosis, no clubbing Skin: normal turgor Skin - other findings: L facial bleeding/hematoma noted Neurological: cranial nerve grossly intact, no new deficit Musculoskeletal: normal tone, normal strength Psychiatric: normal affect, A&O x 3 Hosp A/P (1) MATEUS (acute kidney injury) Code(s): N17.9 - ACUTE KIDNEY FAILURE, UNSPECIFIED Status: Acute Plan: Improved, avoid nephrotoxic meds and limit contrast exposure, serial creatinine (2) Acute blood loss anemia Code(s): D62 - ACUTE POSTHEMORRHAGIC ANEMIA Status: Acute Plan: Secondary to recent facial skin cancer removal, serial H/H, hold Eliquis/Plavix (3) Chronic anticoagulation Code(s): Z79.01 - SKILLED NURSING (CURRENT) USE OF ANTICOAGULANTS Status: Acute Plan: Hold Eliquis/Plavix (4) CKD (chronic kidney disease), stage III Code(s): N18.3 - CHRONIC KIDNEY DISEASE, STAGE 3 (MODERATE) Status: Chronic Plan: Serial creatinine - Plan out of bed/ambulate, DVT proph w/SCDs Stable currently Continue local care to face for control of bleeding Hold Eliquis/Plavix AM lab: BMP, H/H Likely home in am
[2019-01-23 05:18] LABS: Hemoglobin 12.3 g/dL (14.0-18.0); Platelet Count 139 thou/uL (130-400)
[2019-01-23 05:40] LABS: Anion Gap 11 mmol/L (10-20); BUN (Urea Nitrogen) 24 mg/dL (8.4-25.7); Calc. Creatinine Clearance 47 mL/min (70-130); Calcium 8.8 mg/dL (7.8-10.44); Carbon Dioxide 33 mmol/L (23-31); Chloride 101 mmol/L (98-107); Estimated GFR-MDRD 53; Glucose 91 mg/dL (83-110); Potassium 4.6 mmol/L (3.5-5.1); Sodium 140 mmol/L (136-145)
--- NOTE | 2019-01-23 08:15 | PRG ---
DATE OF SERVICE: 01/23/2019 SUBJECTIVE: Mr. Woods is doing well. Continues to complain of neck pain, mainly with movement. He also has back pain, although he states that is improved. No chest pain or pressure noted. Mr. Woods does have a history of CAD, status post stent placement in addition to mitral valve repair. He does continue to bleed from recent surgery to his left ear around his left ear. OBJECTIVE: VITAL SIGNS: Blood pressure 126/83, pulse 74, temperature afebrile. LUNGS: Clear to auscultation. HEART: Irregularly regular. ABDOMEN: Soft, nontender, nondistended. EXTREMITIES: No edema. PERTINENT LABORATORY DATA: Hemoglobin 12.3, down from 12.9. IMPRESSION: 1. Recent surgical bleed. 2. Atrial fibrillation. 3. Status post mitral valve repair. 4. Status post stent placement. 5. Ischemic cardiomyopathy. 6. Status post implantable cardioverter-defibrillator. RECOMMENDATION: Mr. Woods's status is stable. He continues to bleed, although states it has lessened. His hemoglobin did decrease slightly overnight. At this point, we will continue to hold off on Plavix and aspirin given that he is continuing to bleed. We would also hold off on Eliquis. We would like to restart Plavix and Eliquis once stable from a bleeding standpoint. There are risks and benefits of stopping the above. Continue lisinopril in addition to carvedilol. The patient is over 1 year out from his stent implantation. His heart rate and blood pressure appears stable. If he is anticipated to stay in the hospital for any more days, would be okay from my standpoint to transfer to a surgical floor. Job ID: [id number]
[2019-01-23] MEDS: oxyCODONE/Acetaminophen 5 mg/325 mg Tablet PO PRN ×2 (09:24→13:54)
[2019-01-23] MEDS: Isosorbide Mononitrate (ER) 30 MG TAB PO SCH (09:35)
[2019-01-23] MEDS: Potassium Chloride 20 MEQ TAB PO SCH (09:35)
[2019-01-23] MEDS: Carvedilol 6.25 MG TAB PO SCH (09:36)
[2019-01-23] MEDS: Gabapentin 300 MG CAP PO SCH (09:36)
[2019-01-23] MEDS: Furosemide 40 MG TAB PO SCH (09:36)
[2019-01-23] MEDS: Lisinopril 5 MG TAB PO SCH (09:36)
[2019-01-23] MEDS: Senokot S 8.6-50 MG TAB PO PRN (13:57)
[2019-01-23 15:51] VITALS: BP 129/85; TEMP 97.2
--- NOTE | 2019-01-23 19:48 | DIS ---
DATE OF ADMISSION: 01/21/2019 DATE OF DISCHARGE: 01/23/2019 DISCHARGE DIAGNOSES: 1. Acute kidney injury on chronic kidney disease stage 3, improved. 2. Acute blood loss anemia, status post right facial skin cancer removal. 3. Chronic anticoagulation with Eliquis and Plavix. 4. Ischemic cardiomyopathy, compensated. CONSULTATIONS: Dr. Vines and Dr. Harman with Cardiology Service. General Surgery Service. PERTINENT LABORATORY AND X-RAY FINDINGS: Creatinine ranged between 1.14 to 1.32. Estimated GFR ranged between 52 to 61. Troponin I negative x3. Total cholesterol 116, triglycerides 54, HDL 37, LDL 68. CBC showed a hemoglobin ranged between 12.3 to 13.6. Portable chest x-ray dated 01/21/2019, showed small right pleural effusion without acute process. HOSPITAL COURSE: The patient was initially admitted to the telemetry unit after presenting with chest pain in the context of known ischemic cardiomyopathy with ejection fraction of 20% to 25%. The patient underwent serial cardiac biomarkers which were negative x3 and evaluated by the Cardiology Service. No specific evidence of acute coronary syndrome was noted and the patient was observed clinically. EKG did not show any evidence of acute ST-T wave changes with a baseline chronic atrial fibrillation noted. The patient was also noted with right facial bleeding, status post recent skin cancer removal, requiring pressure dressing changes during the hospital course. Hemoglobin did decrease from 13.6 to 12.3 during the hospital course. General Surgery was consulted for any further recommendations regarding management, however no specific intervention was recommended except for followup with his primary direct support worker as soon as discharge. The patient was held on Eliquis and Plavix with instructions to hold the medication for approximately 72 hours after discharge. Overall, the patient remained clinically stable during the hospital course, tolerating regular oral intake and voiding appropriately. I have examined the patient at the time of discharge and discussed followup instructions. The patient verbalized understanding and in agreement, ready for discharge on 01/23/2019. DISCHARGE MEDICATIONS: 1. Isosorbide mononitrate 15 mg p.o. daily. 2. Oxycodone/acetaminophen 5 mg/325 mg 1 tablet p.o. q.4 hours p.r.n. 3. Potassium chloride 20 mEq p.o. daily. 4. Eliquis 5 mg p.o. b.i.d., hold x3 days. 5. Carvedilol 6.25 mg p.o. b.i.d. 6. Plavix 75 mg p.o. daily, hold x3 days. 7. Lasix 40 mg p.o. daily. 8. Gabapentin 300 mg p.o. b.i.d. 9. Protonix 40 mg p.o. daily. FOLLOWUP: The patient may follow up with Dr. Aldo Ocampo within 7 days of discharge. The patient may follow up with Dr. Francois Solitario, Dermatology Service within 24 hours of discharge. CONDITION ON DISCHARGE: Stable. ACTIVITY: Ad-bruce. DIET: Heart healthy. CODE STATUS: Full. DISPOSITION: Home on 01/23/2019. Job ID: [id number]
--- NOTE | 2019-01-23 22:25 | CON ---
DATE OF CONSULTATION: HISTORY OF PRESENT ILLNESS: The patient is an 83-year-old man who is admitted to the hospital for chest pain and bleeding from the surgical site. We were asked to see the patient with regard to his bleeding from his surgical site, specifically the patient is status post a Mohs procedure on left side of his face for a skin cancer done at outside facility here in [facility]. The patient is on Plavix and Eliquis. The patient is noted to have oozing from his surgical site. The patient was admitted on 01/21/2019, today is 1, it was noted that he had continued oozing. Otherwise, the patient is doing well. He has been cleared from a cardiac standpoint and was awaiting discharge for our evaluation. ALLERGIES: NONE. CURRENT MEDICATIONS: 1. Plavix. 2. Eliquis. 3. Potassium. 4. Coreg. 5. Lasix. 6. Gabapentin. 7. Protonix. PAST MEDICAL HISTORY: Hypertension, hyperlipidemia, osteoarthritis, mitral valve regurgitation, bioprosthetic mitral valve, severe tricuspid regurgitation, chronic systolic heart failure, chronic anticoagulation with Eliquis, gastroesophageal reflux disease, and chronic low back pain. PAST SURGICAL HISTORY: Seven surgeries to the back, hip surgery, 3 neck surgeries, cholecystectomy, mitral valve replacement, cardiac catheterization and stent placement and AICD placement. SOCIAL HISTORY: The patient lives at home with his spouse. He denies tobacco or drug use. He reportedly quit smoking years ago. He drinks occasionally. REVIEW OF SYSTEMS: 10-point review of systems is negative as otherwise stated. PHYSICAL EXAMINATION: VITAL SIGNS: Temperature is 97.3, heart rate 73, blood pressure 119/70, respirations 18, oxygen saturation is 97% on room air. GENERAL: The patient is resting comfortably in bed. HEENT: He has a dressing in place on the left side of his face. Upon removal of this dressing, it was noted the patient had a very well approximated surgical site that was clean without signs of infection with a trickle of blood occasionally from the middle portion. LABORATORY FINDINGS: Hemoglobin 12.3, hematocrit 37.1. This has been stable since his admission. His chemistries are unremarkable. There are no radiographs. ASSESSMENT AND PLAN: 1. Status post Mohs procedure, left side of face. 2. Platelet dysfunction due to Plavix and anticoagulation by Eliquis. Plan will be to replace his dressing. There was discussion with he and his regarding immediate followup with his surgeon as his bleeding appeared to be subcuticular and without disturbing his surgical site. We would not be able to cauterize and/or pack his wound and this would be best served by having his surgeon do this, but since his Eliquis was held and his Plavix was held, there was a minimal amount of bleeding that was going on, he should be able to control this with just simple dressings being sure to not aggravate the site and will have dressings to remain in place long enough for the bleeding is stopped. They were in agreement with this plan. I notified Dr. Ulloa who was in agreement with this plan and we notified Dr. Torres. The patient may follow up with us as needed. Again, at this time, he should follow up with his surgeon. Job ID: [id number]
--- NOTE | 2019-01-25 15:09 | EKG ---
Test Reason : Blood Pressure : / mmHG Vent. Rate : 074 BPM Atrial Rate : 159 BPM P-R Int : 000 ms QRS Dur : 096 ms QT Int : 390 ms P-R-T Axes : 000 029 165 degrees QTc Int : 432 ms Atrial fibrillation Abnormal ECG No change compared to prior EKG Confirmed by KUMAR VAIL DO ([id number]), editorial writer ASHLEY TYLER ([id number]) on 01/25/2019 3:09:05 PM Referred By: Confirmed By:KUMAR VAIL DO
== END 2019-01-23 17:15 | disposition home or self-care (01) ==
LOC: ERS 00:42 → 2SE 06:21
PROVIDERS: ADMIT Internal Medicine; ATTEND Internal Medicine
DX: R07.89 Other chest pain (principal); I48.20 Chronic atrial fibrillation, unspecified; I13.0 Hypertensive heart and chronic kidney disease with heart failure and stage 1 through stage 4 chronic kidney disease, or unspecified chronic kidney disease; I50.22 Chronic systolic (congestive) heart failure; N18.3 Chronic kidney disease, stage 3 (moderate); I25.5 Ischemic cardiomyopathy; H95.41 Postprocedural hemorrhage of ear and mastoid process following a procedure on the ear and mastoid process; N17.9 Acute kidney failure, unspecified; E78.5 Hyperlipidemia, unspecified; K21.9 Gastro-esophageal reflux disease without esophagitis; M19.90 Unspecified osteoarthritis, unspecified site; G89.29 Other chronic pain; M54.5 Low back pain; Z79.01 Long term (current) use of anticoagulants; Z79.899 Other long term (current) drug therapy; Z87.891 Personal history of nicotine dependence; Z95.2 Presence of prosthetic heart valve; Z95.5 Presence of coronary angioplasty implant and graft; Z95.810 Presence of automatic (implantable) cardiac defibrillator
CPT/HCPCS: 71045; 80048 ×2; 80053; 80061; 84484 ×2; 85014; 85018; 85025 ×2; 85049; 85610; 85730; 93005; 96360; 99285; G0378 ×3; 36415; Q0162

== ENCOUNTER 2019-02-10 19:30 | Outpatient (CLI) | payer MEDICARE | END 2019-02-10 19:31 | disposition home or self-care (01) | LOC: SLEEPLAB 19:30 | PROVIDERS: ATTEND Internal Medicine | DX: G47.33 Obstructive sleep apnea (adult) (pediatric) (principal); G47.31 Primary central sleep apnea | CPT/HCPCS: 95811 ==

== ENCOUNTER 2019-03-25 22:01 | Inpatient (IN) | payer MEDICARE ==
[2019-03-25] MEDS ORDERED: Piperacillin/Tazobactam 4.5 GM VIAL ONE (22:36)
[2019-03-25 22:40] LABS: #Eosinphils 0.1 thou/uL (0.0-0.7); #Lymphocytes 1.7 thou/uL (1.20-3.40); #Monocytes 0.9 thou/uL (0.11-0.59); #Neutrophils 7.5 thou/uL (1.40-6.50); %Basophils 0.3 % (0.0-1.0); %Eosinophils 0.6 % (0.0-10.0); %Lymphocytes 16.5 % (21.0-51.0); %Monocytes 8.9 % (0.0-10.0); %Neutrophils 73.7 % (42.0-75.0); Hemoglobin 14.9 g/dL (14.0-18.0); Mean Corpuscular HGB CONC 32.9 g/dL (32.0-36.0); Mean Corpuscular Hemoglobin 32.3 pg (27.0-31.0); Mean Corpuscular Volume 98.2 fL (78.0-98.0); Mean Platelet Volume 8.4 fL (7.4-10.4); Platelet Count 172 thou/uL (130-400); RBC Distribution Width 13.5 % (11.5-14.5); Red Blood Cell (RBC) Count 4.62 mill/uL (4.70-6.10); White Blood Cell (WBC) Count 10.1 thou/uL (4.8-10.8)
--- NOTE | 2019-03-25 22:40 | RAD ---
Portable chest: HISTORY: Sepsis protocol COMPARISON: 01/21/2019 FINDINGS: Lung leavitt are clear. Cardiomegaly again noted. Prosthetic mitral valve. AICD lead again n oted. Vascularity is normal. Severe degenerative changes at both shoulders again noted. IMPRESSION: No acute finding
[2019-03-25 23:10] LABS: Bacteria/HPF None Seen HPF (None Seen); Bilirubin Negative (Negative); Blood, Urine Negative (Negative); Clarity Clear (Clear); Glucose, Urine (Dipstick) Normal (Negative); Leukocyte Negative Leu/uL (Negative); Nitrite Negative (Negative); Protein, Urine (Dipstick) 70 mg/dL (Neg-Trace); RBC/HPF 0-3 HPF (0-3); Squamous Epithelial None Seen HPF (0-3); Urobilinogen Normal mg/dL (Less than 2); WBC/HPF 0-3 HPF (0-3)
[2019-03-25 23:14] LABS: ALT (SGPT) 10 U/L (8-55); AST (SGOT) 19 U/L (5-34); Albumin 3.9 g/dL (3.4-4.8); Alkaline Phosphatase 88 U/L (40-110); Anion Gap 11 mmol/L (10-20); BUN (Urea Nitrogen) 21 mg/dL (8.4-25.7); Bilirubin, Total 1.1 mg/dL (0.2-1.2); Calc. Creatinine Clearance 0 mL/min (70-130); Calcium 9.3 mg/dL (7.8-10.44); Carbon Dioxide 34 mmol/L (23-31); Chloride 100 mmol/L (98-107); Estimated GFR-MDRD 52; Globulin 3.7 g/dL (2.4-3.5); Glucose 114 mg/dL (83-110); Protein, Total 7.6 g/dL (5.8-8.1); Sodium 141 mmol/L (136-145)
[2019-03-25] MEDS ORDERED: HYDROcodone/Acetaminophen 10/325 mg Tablet ONE (23:22)
[2019-03-25 23:25] LABS: CKMB 1.8 ng/mL (0-6.6)
--- NOTE | 2019-03-25 23:52 | CT ---
CTA CHEST WITH CONTRAST: 03/25/19 Multiplanar reconstruction and 3D postprocessing performed according to angio protocol. INDICATIONS: Chest pain. FINDINGS: Pulmonary arteries show adequate opacification. No evidence of pulmonary embolus identified. The lung s show chronic parenchymal change. There is linear stranding and atelectasis in the right middle lobe peripherally abutting the pleural surface. This has a nodular component as it abuts the pleural christine face. Follow-up is recommended to confirm stability. No evidence of infiltrate or significant effusion. Thoracic aorta is not opacified and cannot be assessed. Hepatic cysts again noted. Renal cyst on the left again noted. These findings are stable when compared to prior exam of 12/10/17. IMPRESSION: 1. No evidence of pulmonary embolus. 2. No evidence of inflammatory infiltrate. 3. Stranding with pleural based nodularity in the peripheral right middle lobe. Short term follo w-up is recommended to confirm stability. Code LN POS: OFF
[2019-03-26] MEDS ORDERED: HYDROcodone/Acetaminophen 7.5/325 mg Tablet PO PRN (02:07)
[2019-03-26 02:43] LABS: Troponin I 0.026 ng/mL (< 0.028)
--- NOTE | 2019-03-26 02:44 | HP ---
PRESENTING COMPLAINT: Chest pain, shortness of breath, and hip pain. HISTORY OF PRESENT ILLNESS: An 83-year-old male, with past medical history of COPD, hypertension, AFib on chronic anticoagulation, history of right hip replacement, who presented today because of right hip pain. The patient states he feels the right hip pain and knee pain is worsening. He states he has [id number] cartilage destruction on his knee. He admits to worsening pain symptoms with associated myalgia since the last 3 days. He has also been having intermittent substernal chest pain. He denies any shortness of breath initially, but on arrival in the ED, his O2 saturation was low to 82% on room air. The patient had a recent sleep study, but does know has not had any need for oxygen in the past. He admits to increasing weakness. He admits to intermittent cough but nonproductive. He was noted with a mild troponin elevation of 0.04. He also admits to mild intermittent dysuria. On arrival in the emergency room, the patient was noted with a temperature of 102.6. He was given vancomycin and Zosyn. He feels a bit better now. He was also started on nasal cannula O2. PAST MEDICAL HISTORY: Significant for hypertension, hyperlipidemia, history of right jaw skin cancer status post excision, history of severe mitral regurgitation status post prostatic mitral valve replacement, history of AICD placement for bradycardia, history of chronic anticoagulation, history of GERD, history of multiple joint osteoarthritis, hyperlipidemia, history of chronic back pain, history of systolic CHF. PAST SURGICAL HISTORY: Cholecystectomy, mitral valve replacement, AICD placement. HOME MEDICATIONS: See medication list. SOCIAL HISTORY: The patient is . Resides with in the community. History of previous tobacco use. No alcohol or illicit drug use. REVIEW OF SYSTEMS: All systems reviewed x14 were negative except as mentioned above. ALLERGIES: NO KNOWN DRUG ALLERGIES. FAMILY HISTORY: Noncontributory in this 83-year-old male. PHYSICAL EXAMINATION: VITAL SIGNS: Blood pressure of 108/76, pulse of 107, respiratory rate of 20, O2 saturation is 87% on 2 L nasal cannula. GENERAL: Average built, elderly male, lying in bed, on nasal cannula O2, not in any acute respiratory distress. HEENT: Pupils equal, reactive to light. Mild periorbital edema. Moist oral mucosa. NECK: No JVD. CARDIOVASCULAR: S1, S2. Irregular and tachycardic. AICD in-situ. RESPIRATORY: Good air entry bilaterally. No wheeze. Mild right base crepitations. GI/ABDOMEN: Full, soft, nontender. Bowel sounds positive. EXTREMITIES: Small abrasion over the right 2nd digit. No open ulcers noted. Otherwise, no pedal edema. No calf tenderness. NEURO: The patient is conversant and oriented. No neurological focal motor deficit. LABORATORY DATA: Chest x-ray shows mild pulmonary congestive changes. CTA shows no evidence of PE but small linear infiltrate between the right pleural surface, worrisome for nodule. Images independently reviewed by me but impression of a nodular opacity is concerning for pneumonia is my impression at this time. WBC 10.1, neutrophils 73%, no bands, hemoglobin 15, platelet 172. Sodium 141, potassium 4, bicarb 34, creatinine 1.3 up from baseline of 1.26, BNP of 725. Troponin 0.04. Urinalysis negative. Influenza A and B negative. EKG shows LVH with strain pattern, AFib at 92 beats per minute. IMPRESSION: 1. Right middle lobe pneumonia. 2. Atrial fibrillation with rapid ventricular response. 3. Mild troponin elevation. 4. Multiple joint osteoarthritis pain. 5. Atypical chest pain. PLAN: We will manage the patient for the following; 1. Right basal pneumonia. We will start the patient on antibiotics with Levaquin and Rocephin and we will discontinue vancomycin and Zosyn for now. We will obtain blood culture x2 to rule out bacteremia. We will continue O2 with titration to keeping O2 saturation above 92%. We will start mucolytics with guaifenesin. We do DuoNeb p.r.n. We will avoid IV fluid now given mild elevated BNP. 2. History of CHF. Despite mild elevated ProBNP, I think the patient is still clinically dry. We will avoid IV fluid but allow regular unrestricted p.o. fluid intake. 3. Hypertension, borderline controlled. Continue to follow. 4. History of chronic anticoagulation. We will continue home regimen with Eliquis. 5. DVT prophylaxis. We do subcutaneous. Patient already on Eliquis. 6. Advanced directive, the patient one trial full code. 7. Elevated troponin may be due to demand mediated. We will follow serial set of cardiac enzymes. 8. CKD with mild acute elevation. We will continue to monitor. May need Renal if worsening. Total time spent in review of record, discussion with patient, greater than 60 minutes. Job ID: [id number]
[2019-03-26] MEDS ORDERED: Sodium Chloride 0.9% 10 ML ONE ×2 (03:27→21:08)
[2019-03-26] MEDS: cefTRIAXone\\ROCEPHIN 2 GM in Sodium Chloride 0.9% 100 ML IVPB SCH (03:52)
[2019-03-26 04:15] LABS: #Lymphocytes 2.4 thou/uL (1.20-3.40); #Monocytes 1.8 thou/uL (0.11-0.59); #Neutrophils 12.6 thou/uL (1.40-6.50); %Basophils 0.1 % (0.0-1.0); %Eosinophils 0.2 % (0.0-10.0); %Lymphocytes 14.1 % (21.0-51.0); %Monocytes 10.5 % (0.0-10.0); %Neutrophils 75.1 % (42.0-75.0); Hemoglobin 13.7 g/dL (14.0-18.0); Mean Corpuscular HGB CONC 32.8 g/dL (32.0-36.0); Mean Corpuscular Volume 97.6 fL (78.0-98.0); Mean Platelet Volume 8.3 fL (7.4-10.4); Platelet Count 156 thou/uL (130-400); RBC Distribution Width 13.5 % (11.5-14.5); Red Blood Cell (RBC) Count 4.29 mill/uL (4.70-6.10); White Blood Cell (WBC) Count 16.7 thou/uL (4.8-10.8)
[2019-03-26 04:35] LABS: Anion Gap 12 mmol/L (10-20); BUN (Urea Nitrogen) 20 mg/dL (8.4-25.7); Calc. Creatinine Clearance 46 mL/min (70-130); Calcium 8.7 mg/dL (7.8-10.44); Carbon Dioxide 29 mmol/L (23-31); Chloride 102 mmol/L (98-107); Estimated GFR-MDRD 54; Glucose 113 mg/dL (83-110); Potassium 3.5 mmol/L (3.5-5.1); Sodium 139 mmol/L (136-145)
[2019-03-26] MEDS: oxyCODONE/Acetaminophen 5 mg/325 mg Tablet PO PRN ×2 (06:41→12:25)
[2019-03-26] MEDS: Famotidine 20 MG TAB PO SCH (08:49)
[2019-03-26] MEDS: Apixaban 5 MG TAB PO SCH (08:49)
[2019-03-26] MEDS: Clopidogrel Bisulfate 75 MG TAB PO SCH (08:49)
[2019-03-26] MEDS: Gabapentin 300 MG CAP PO SCH ×2 (08:50→20:59)
[2019-03-26] MEDS ORDERED: Furosemide 20 MG TAB PO SCH (09:00)
[2019-03-26] MEDS ORDERED: Enoxaparin Sodium 30 MG/0.3 ML SYRINGE SC SCH (09:00)
[2019-03-26] MEDS ORDERED: Furosemide 40 MG TAB PO SCH (09:00)
[2019-03-26] MEDS ORDERED: Non-Formulary Item 1 EACH (Potassium Chloride [Potassium Chloride] 1 TAB) PO SCH (09:00)
[2019-03-26] MEDS ORDERED: Clopidogrel Bisulfate 75 MG TAB PO SCH (09:00)
[2019-03-26] MEDS: Carvedilol 6.25 MG TAB PO SCH ×3 (10:33→21:34)
[2019-03-26] MEDS: Isosorbide Mononitrate (ER) 30 MG TAB PO SCH (10:35)
[2019-03-26] MEDS: Ondansetron PF 4 MG/2 ML Vial IVP PRN ×2 (14:24→21:09)
[2019-03-26] MEDS ORDERED: Heparin 1,000 UNITS/ML VIAL ONE (14:55)
--- NOTE | 2019-03-26 15:40 | RAD ---
RIGHT HIP TWO VIEWS: 03/26/19 HISTORY: Severe right hip pain. A total hip prosthesis is in place without evidence for loosening or fracture. IMPRESSION: Total hip prosthesis. POS: BRITTANY
--- NOTE | 2019-03-26 17:26 | PDOC.HOSPP ---
- Subjective Encounter Date: 03/26/19 Encounter Time: 17:25 Subjective: f/u for suspected RLL PNA on Levaquin/Rocephin. c/o R hip pain - Objective Vital Signs & Weight: Vital Signs (12 hours) Temp Pulse Pulse Pulse Resp BP BP 03/26/19 16:00 98.7 F 98 18 03/26/19 12:23 98.1 F 74 18 03/26/19 11:30 84 115/89 03/26/19 10:35 89 107 H 106/62 111/73 03/26/19 08:38 98.1 F 84 18 BP Pulse Ox 03/26/19 16:00 137/77 95 03/26/19 12:23 98/70 03/26/19 11:30 03/26/19 10:35 03/26/19 08:38 101/55 L 95 Weight Weight 165 lb 11.2 oz I&O: 03/25/19 03/26/19 03/27/19 06:59 06:59 06:59 Intake Total 450 Output Total 200 Balance 250 Result Diagrams: 03/26/19 03:52 03/26/19 03:52 Additional Labs: Microbiology 03/26/19 00:02 Nasal swab Influenza Types A,B Direct EIA - Final 03/25/19 22:58 Urine voided Urine Culture - Preliminary NO GROWTH AT 12 HOURS 03/25/19 22:35 Venous blood - Left Arm Blood Culture - Preliminary Specimen has been received and culture in progress. No Growth to date. 03/25/19 22:30 Venous blood - Right Arm Blood Culture - Preliminary Specimen has been received and culture in progress. No Growth to date. Laboratory Tests 09/24/17 09/24/17 09/25/17 18:07 18:07 04:27 WBC Hgb Hct Neutrophils % BUN Creatinine 1.51 H Creatine Kinase 239 H Troponin I B-Natriuretic Peptide 1401.8 H 2121.0 H 09/26/17 10/20/17 12/07/17 03:41 06:45 14:00 WBC Hgb Hct Neutrophils % BUN Creatinine Creatine Kinase Troponin I B-Natriuretic Peptide 2144.2 H 958.1 H 2088.1 H 01/21/19 01/21/19 03/25/19 01:33 01:33 22:35 WBC 10.1 Hgb 13.6 L Hct 40.9 L Neutrophils % 73.7 BUN 27 H Creatinine 1.32 H Creatine Kinase Troponin I B-Natriuretic Peptide 03/25/19 03/25/19 03/26/19 22:35 22:35 02:12 WBC Hgb Hct Neutrophils % BUN Creatinine Creatine Kinase Troponin I 0.043 H 0.026 B-Natriuretic Peptide 725.6 H 03/26/19 03/26/19 03:52 03:52 WBC Hgb Hct Neutrophils % 75.1 H BUN Creatinine Creatine Kinase Troponin I 0.050 H B-Natriuretic Peptide Radiology Reviewed by me: Yes (R hip x-ray - no acute changes) EKG Reviewed by me: Yes (Tele - ) Hospitalist ROS - Medication Medications: Active Medications Generic Name Dose Route Start Last Admin Trade Name Freq PRN Reason Stop Dose Admin Hydrocodone Bitart/Acetaminophen 1 tab 03/26/19 02:07 03/26/19 14:24 [place] 7.5/325 PO 1 tab Q4H PRN Administration Moderate Pain (4-6) Apixaban 5 mg 03/26/19 09:00 03/26/19 08:49 Eliquis PO 5 mg BID FRANDY Administration Carvedilol 6.25 mg 03/26/19 09:00 03/26/19 14:37 Coreg PO Not Given TID FRANDY Clopidogrel Bisulfate 75 mg 03/26/19 09:00 03/26/19 08:49 Plavix PO 75 mg DAILY FRANDY Administration Famotidine 20 mg 03/26/19 09:00 03/26/19 08:49 Pepcid PO 20 mg DAILY FRANDY Administration Gabapentin 300 mg 03/26/19 09:00 03/26/19 08:50 Neurontin PO 300 mg BID FRANDY Administration Ceftriaxone Sodium 2 gm/ 100 mls @ 200 mls/hr 03/26/19 03:00 03/26/19 03:52 Sodium Chloride IVPB 100 mls Q24HR FRANDY Administration Levofloxacin 750 mg/ Device 150 mls @ 100 mls/hr 03/26/19 04:00 03/26/19 03: 56 IVPB 150 mls Q24HR FRANDY Administration Isosorbide Mononitrate 15 mg 03/26/19 09:00 03/26/19 10:35 Imdur Er PO Not Given DAILY FRANDY Ondansetron HCl 4 mg 03/26/19 02:07 03/26/19 14:24 Zofran IVP 4 mg Q6H PRN Administration Nausea/Vomiting Oxycodone/Acetaminophen 1 tab 03/26/19 02:10 03/26/19 12:25 Percocet 5/325 PO 1 tab Q4H PRN Administration Pain - Exam General Appearance: NAD, awake alert Eye: PERRL, anicteric sclera ENT: normocephalic atraumatic, no oropharyngeal lesions Neck: supple, symmetric, no JVD, no thyromegaly Heart: no gallops, no rubs, normal peripheral pulses, irregular Respiratory: no tachypnea Respiratory - other findings: diminished in bases, occasional rhonchi Gastrointestinal: soft, non-tender, non-distended, normal bowel sounds, no palpable masses Extremities: no cyanosis, no edema Extremities - other findings: TTP in R hip/knee with limited ROM, no fluctuance Skin: normal turgor, no lesions Neurological: cranial nerve grossly intact, no new deficit Musculoskeletal: normal tone, generalized weakness Psychiatric: normal affect, A&O x 3 Hosp A/P (1) Community acquired bacterial pneumonia Code(s): J15.9 - UNSPECIFIED BACTERIAL PNEUMONIA Status: Acute Plan: Continue Levaquin/Rocephin another 24h then de-escalate (2) MATEUS (acute kidney injury) Code(s): N17.9 - ACUTE KIDNEY FAILURE, UNSPECIFIED Status: Acute Plan: Mild, resolving (3) Chronic anticoagulation Code(s): Z79.01 - AUTO PARTS CLERK (CURRENT) USE OF ANTICOAGULANTS Status: Acute Plan: Continue Eliquis (4) CKD (chronic kidney disease), stage III Code(s): N18.3 - CHRONIC KIDNEY DISEASE, STAGE 3 (MODERATE) Status: Chronic (5) Osteoarthritis Code(s): M19.90 - UNSPECIFIED OSTEOARTHRITIS, UNSPECIFIED SITE Status: Chronic Plan: Multiple joints including R hip/knee, pain control, consult Orthopedics for any further recommendations, PT for mobilization - Plan continue antibiotics, PT/OT, social welfare clerk, out of bed/ambulate, DVT proph w/ SCDs Stable currently Continue pain control, add Morphine Sulfate IV Orthopedics consult pending Continue Rocephin/Levaquin another 24h then de-escalate AM lab: BMP, CBC
--- NOTE | 2019-03-26 17:27 | CON ---
DATE OF CONSULTATION: 03/26/2019 SERVICE: Nephrology. REASON FOR CONSULTATION: Acute kidney injury. REQUESTING PHYSICIAN: Dr. Whitley Rose. HISTORY OF PRESENT ILLNESS: An 83-year-old male with multiple comorbidities including COPD, hypertension, atrial fibrillation on chronic anticoagulation, cardiomyopathy status post AICD placement, amongst others, who was admitted due to worsening generalized body aches as well as exertional dyspnea. The patient with known history of degenerative joint disease and chronic neck and back pain requiring pain management, reported worsening generalized body aches as well as chest pain and exertional dyspnea, hence presentation to the ER. The patient denied chest pain. There was found to have hypoxia on presentation with SpO2 of 82% on room air. He was found to have atrial fibrillation with rapid ventricular response and further evaluation showed acute elevation in creatinine, necessitating Nephrology consult. The patient denied nausea or vomiting. He however admitted to bilateral leg swelling, which has improved. The patient also was found to have a temperature of 102 on presentation to the ER, hence was started on antibiotics for possible pneumonia. PAST MEDICAL HISTORY: 1. Hypertension. 2. Hyperlipidemia. 3. Right jaw skin cancer, status post excision. 4. Severe mitral regurgitation, status post mitral valve replacement. 5. Cardiomyopathy as well as sick sinus syndrome, status post AICD placement. 6. Gastroesophageal reflux disease. 7. Degenerative joint disease. 8. Chronic back pain. 9. Chronic systolic heart failure. PAST SURGICAL HISTORY: 1. Cholecystectomy. 2. Mitral valve replacement. 3. AICD placement. 4. Cardiac catheterization with stent placement. 5. Multiple spine intervention. FAMILY HISTORY: Reviewed, but noncontributory. SOCIAL HISTORY: The patient is and lives with in the community. He is a former smoker, who quit more than 30 years ago. Denied alcohol or recreational drug use. ALLERGIES: NO KNOWN DRUG ALLERGIES REPORTED. HOME MEDICATIONS: 1. Carvedilol 6.25 mg t.i.d. 2. Isosorbide mononitrate 15 mg p.o. daily. 3. Potassium chloride 20 mEq p.o. daily. 4. Eliquis 5 mg p.o. b.i.d. 5. Plavix 75 mg p.o. daily. 6. Lasix 40 mg p.o. daily. 7. Neurontin 300 mg p.o. b.i.d. 8. Protonix 40 mg p.o. daily. 9. Oxycodone 5/325 one tablet q.4 p.r.n. for pain. REVIEW OF SYSTEMS: 12-point review of system performed was negative other than pertinent positives and negatives included in the history of present illness. PHYSICAL EXAMINATION: VITAL SIGNS: Temperature 98.1, pulse 84, respiratory rate 18, SpO2 of 95% on room air, blood pressure is 101/55. GENERAL: Chronically ill-looking elderly male, in no obvious distress. Afebrile. Anicteric. Acyanotic. HEENT: Normocephalic and atraumatic. Oral mucosa is moist. NECK: Supple with no JVD. CARDIOVASCULAR: Irregular rhythm and rate. Normal heart sounds one and two noted. Systolic murmur also noted. AICD in situ noted. RESPIRATORY: Fair air entry bilaterally with no obvious crackle or rhonchi. Some transmitted breath sounds noted. Work of breathing is not increased. GI: Full, soft, nontender, nondistended with normal bowel sounds. EXTREMITIES: Right second distal toe abrasion noted. No obvious edema or erythema appreciated in both legs. Some varicosities are noticed on the left leg. LAWNMOWER REPAIR MECHANIC: Conscious, alert and oriented x3 with appropriate mental status. Cranial nerves 2 through 12 are grossly intact. The patient moves all extremities. LABORATORY DATA: CBC showed WBC count of 16.7, hemoglobin of 13.7, MCV of 97.6, platelet of 156. On presentation, however, WBC count was 10.1 with hemoglobin of 14.9, and platelet of 172. BMP today showed sodium 139, potassium 3.5, chloride 102, CO2 of 29, BUN 20, creatinine 1.28, glucose 113, calcium 8.7. On presentation, however, CMP showed sodium 141, potassium 4.0, chloride 100, CO2 of 34, BUN 21, creatinine 1.32, glucose 114, calcium 9.3, total bilirubin 1.1, AST 19, ALT 10, alkaline phosphatase 88, total protein 7.6, albumin 3.9. Initial cardiac enzymes showed CK-MB 1.8. Troponin 0.043. BNP of 725. Troponin did trend down to 0.026, but has gone up to 0.050. Urinalysis showed light yellow urine with pH of 8.0, specific gravity of 1.012, urine protein of 70, normal glucose. Negative ketone, blood, nitrite, bilirubin, or leukocyte esterase. Microscopy does showed 0 to 3 rbc and 0 to 3 wbc with no bacteria seen. IMAGING STUDIES: 1. Chest x-ray showed clear lung leavitt with cardiomegaly and prosthetic mitral valve as well as AICD. Vascularity is said to be normal, but severe degenerative changes of both shoulders again were noted. No acute finding was the impression. 2. CT angio of chest was negative for PE or infiltrate; however, some stranding with pleural based nodularity seen in the periphery of right middle lobe. 3. EKG showed atrial fibrillation with a rate of 92. ASSESSMENT: 1. Acute on chronic renal failure. This most likely due to prerenal etiology related to volume depletion from excessive diuresis and possibly poor oral intake. Cytokine mediated injury is contributory given features of fever noted on presentation. The patient also was hypoxic. The patient is currently getting antibiotics for possible pneumonia. 2. Review of medical records showed that the patient had creatinine of 0.94 in April 2018, but this has increased to 1.32 in January 2019. On presentation, creatinine was 1.32 and is currently down to 1.28. The patient is getting Lasix at home. 3. History of hypertension. Blood pressure currently is on the soft side. 4. Ischemic cardiomyopathy. 5. Chronic systolic heart failure. 6. Fever of unclear etiology. PLAN: 1. We will get urine electrolytes. 2. We will however stop diuretics as the patient looks clinically dry. [place] oral intake will be encouraged. We will monitor vitals and hold antihypertensives as needed to prevent hypotension. We will repeat renal function test in the morning. Further treatment to follow depending on hospital course. Many thanks for involving us in the care of this patient. We will follow along with you. Job ID: [id number]
[2019-03-26] MEDS: diphenhydrAMINE 25 MG CAP PO PRN (20:58)
[2019-03-26] MEDS: Morphine 4 MG/ML VIAL SLOW IVP PRN (21:24)
--- NOTE | 2019-03-27 01:58 | CON ---
DATE OF CONSULTATION: 03/26/2019 REQUESTING PHYSICIAN: . CONSULTING PHYSICIAN: Dr. Warren King. REASON FOR CONSULTATION: Subacute onset right hip, thigh, and knee pain. BRIEF CLINICAL HISTORY: Sree is an 83-year-old male, who was admitted to the Medicine team yesterday for fevers and pneumonia. The patient has had a subacute presentation of intense right hip pain, which he has gone from a very functional state to a bedbound state within 4 to 5 days. This is what we have been consulted for and there are some concerns about the nature of this issue in the face of fevers and pneumonia. He had a right total hip arthroplasty by Dr. Douglas approximately 10 years ago and has been doing exceptionally well for the last decade until late last week, he has been having discomfort and pain in the hip and it has gotten so bad that he cannot stand and walk anymore. PAST MEDICAL HISTORY: Long and complex, but significant for peripheral vascular disease; COPD; hypertension; atrial fibrillation, on anticoagulation; progressive nonproductive cough and shortness of breath. PAST SURGICAL HISTORY: Significant for right total hip arthroplasty. He has had jaw cancer, severe mitral regurgitation with a mitral valve replacement, AICD placement, reflux, dyspepsia, hyperlipidemia, chronic back pain with multiple surgeries, and systolic congestive heart failure, cholecystectomy. MEDICATIONS: Please see medication rec list. PHYSICAL EXAMINATION: Visual inspection of the right lower extremity demonstrates the patient to be quite intolerant of maneuvering the right hip. It is provocative, concordant pain with mild internal-external rotation. He cannot flex and extend the right hip due to pain. Right knee does have a +1 effusion. It is tender to palpation. There is no erythema, no warmth. He is neurovascularly intact. There is no shortening or malrotation of the lower extremity. IMAGING STUDIES: Demonstrate an [place] press-fit total hip arthroplasty on the right with good position. No lytic changes and see no evidence of loosening fluid levels. IMPRESSION: 1. Subacute right hip pain with accompanying fevers and pneumonia. High level of concern for a periprosthetic septic arthritis. 2. Right knee effusion. The patient has a white count of 16.7 this morning. PLAN: 1. We will schedule the patient for a fluoroscopic-guided arthrocentesis of the right hip. 2. N.p.o. after midnight. I will also hold his Eliquis today and tomorrow morning in anticipation of a positive arthrocentesis and I have asked Radiology to call me to see the arthrocentesis directly and see how much fluid comes off it. 3. Glucose, protein, cell count with differential and Gram stain, culture sensitivity of the specimen will be obtained. 4. C-reactive protein on next blood draw and sedimentation rate. 5. We will follow up with Dr. Douglas tomorrow morning. I have spoken to Radiology. Job ID: [id number]
[2019-03-27] MEDS: cefTRIAXone\\ROCEPHIN 2 GM in Sodium Chloride 0.9% 100 ML IVPB SCH (02:10)
[2019-03-27] MEDS: Morphine 4 MG/ML VIAL SLOW IVP PRN ×3 (03:41→16:57)
[2019-03-27 04:12] LABS: Band 4 % (5-11); Hemoglobin 13.5 g/dL (14.0-18.0); Lymphocytes 24 % (21-51); MDiff Complete? YES; Mean Corpuscular HGB CONC 32.3 g/dL (32.0-36.0); Mean Corpuscular Hemoglobin 32.1 pg (27.0-31.0); Mean Corpuscular Volume 99.4 fL (78.0-98.0); Monocytes 6 % (0-10); Neutrophil 66 % (42-75); Platelet Count 123 thou/uL (130-400); Platelet Morphology Comment Appears Decreased; RBC Distribution Width 13.7 % (11.5-14.5); Red Blood Cell (RBC) Count 4.18 mill/uL (4.70-6.10); White Blood Cell (WBC) Count 13.8 thou/uL (4.8-10.8)
[2019-03-27 04:27] LABS: Creatinine, Urine 234.58 mg/dL (63-166); Protein, Urine Random Quant 104 mg/dL (1-14); Sodium, Urine Less than 20 mmol/L (Not Available); Urea Nitrogen, Random Urine 826 mg/dl
[2019-03-27 08:28] LABS: Anion Gap 13 mmol/L (10-20); BUN (Urea Nitrogen) 25 mg/dL (8.4-25.7); Calc. Creatinine Clearance 39 mL/min (70-130); Calcium 8.3 mg/dL (7.8-10.44); Carbon Dioxide 26 mmol/L (23-31); Chloride 102 mmol/L (98-107); Estimated GFR-MDRD 45; Glucose 88 mg/dL (83-110); Sodium 137 mmol/L (136-145)
--- NOTE | 2019-03-27 08:56 | PRG ---
DATE OF SERVICE: 03/27/2019 SUBJECTIVE: Sree is an 83-year-old male, whom we have been consulted on for right hip pain, suspect septic arthritis. He is still complaining bitterly of right hip, groin, and thigh pain. He has not been able to stand and walk due to his discomfort. I looked at him yesterday. His white count was 16. It has trended down overnight to 13.8 with vancomycin and Zosyn. Sedimentation rate is 15 and C-reactive protein is 18.4. He is scheduled for a right hip arthrogram this morning for aspiration. 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 PLAN: 1. Hip aspirate today and I will go ahead and make him n.p.o. after midnight in anticipation of revision and antibiotic spacer tomorrow. 2. Tranexamic acid 1 g identification printing machine setter to OR. 3. Please see orders. Job ID: [id number]
[2019-03-27] MEDS: Clopidogrel Bisulfate 75 MG TAB PO SCH (09:59)
[2019-03-27] MEDS: Carvedilol 6.25 MG TAB PO SCH ×3 (10:00→21:06)
[2019-03-27] MEDS: Famotidine 20 MG TAB PO SCH (10:00)
[2019-03-27] MEDS: Isosorbide Mononitrate (ER) 30 MG TAB PO SCH (10:01)
[2019-03-27] MEDS: Gabapentin 300 MG CAP PO SCH ×2 (10:01→21:07)
--- NOTE | 2019-03-27 10:17 | RAD ---
Fluoroscopic guided right hip aspiration INDICATION: Right total hip arthroplasty concern for infection TECHNIQUE: Informed consent was obtained. Preprocedure elevator examiner and adjuster images were performed of the right hip. Site overly ing the right hip was prepped and draped using sterile fashion. Buffered 1% lidocaine was administered to the overlying subcutaneous tissues. Under fluoroscopic guidance, an 18-gauge spinal n eedle was guided down into the right total hip joint. 3 cc of a bloody purulent fluid were aspirated from the patient's right hip joint. The patient tolerated the aspiration without difficulty . Total fluoroscopic time was 0.2 minutes. Total exposure was 373.7microGy/cm2. FINDINGS: None IMPRESSION: Successful right hip aspiration
--- NOTE | 2019-03-27 10:50 | PRG ---
DATE OF SERVICE: 03/27/2019 SERVICE: Nephrology. SUBJECTIVE: An 83-year-old male with multiple comorbidities including degenerative joint disease with previous right hip replacement, admitted with worsening generalized body aches. The patient was found to have fever on presentation, hence was started on broad-spectrum antibiotics. Right hip prosthetic septic arthritis is considered as the source of the fever. Nephrology is following the patient for acute on chronic kidney disease. The patient is currently n.p.o. for possible right hip arthrocentesis. He denied nausea, vomiting. Fever has subsided. Continued to complain of generalized body ache as well as joint pain. Denied cough, nausea, vomiting, diarrhea, or constipation. OBJECTIVE: VITAL SIGNS: Temperature 98.2, pulse 78, respiratory rate 20, SpO2 of 96% on 2 L nasal cannula, and blood pressure is 90/40. GENERAL: Elderly male, in some painful distress. Afebrile. Anicteric. Acyanotic. HEENT: Normocephalic, atraumatic. Oral mucosa is dry. NECK: No JVD appreciated. RESPIRATORY: Fair air entry bilaterally with no obvious crackles or rhonchi. Some transmitted breath sounds heard, especially left base posteriorly. Work of breathing is not increased. CARDIOVASCULAR: rhythm and rate with normal heart sounds one and two. GI: Full, soft, nontender, nondistended with normal bowel sounds. EXTREMITIES: Grossly normal looking, rather dry, with no edema or erythema. CULINARY ARTIST: Conscious and alert and oriented x3 with appropriate mental status. The patient is hard of hearing and this limited conversation. Cranial nerves 2 through 12 are grossly intact. DIAGNOSTIC DATA: CBC showed WBC count of 13.8, hemoglobin of 13.5, MCV of 99.4, and platelets of 123. BMP today showed sodium 137, potassium 4.0, chloride 102, CO2 of 26, BUN 25, creatinine 1.48, glucose 88, and calcium 8.3. Note that, yesterday creatinine was 1.28. CRP today is 18.4 and ESR is 15. Urine electrolytes showed urine creatinine urine sodium of less than 20, and urine urea nitrogen of 826. Fractional excretion of urea is 22.5 and fractional excretion of sodium is 0.1, both suggestive of prerenal etiology. ASSESSMENT: 1. Acute on chronic renal failure: Due to prerenal etiology related to volume depletion from poor oral intake and diuretic therapy. 2. Chronic kidney disease, stage 3. 3. History of hypertension: Blood pressure currently is running on the low side. The patient is on antihypertensives. 4. Fever with elevated CRP. 5. 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 PLAN: 1. Since the patient is n.p.o., we will start gentle IV fluid therapy with normal saline at 50 mL/h. 2. We will also avoid nephrotoxic agent including AVELINA inhibitors and diuretics. 3. We will monitor renal function. Other treatment as per Orthopedic and primary attending. Job ID: [id number]
[2019-03-27] MEDS: oxyCODONE/Acetaminophen 5 mg/325 mg Tablet PO PRN (11:06)
[2019-03-27] MEDS: Sodium Chloride 0.9% 1,000 ML IV SCH (11:07)
[2019-03-27 13:01] LABS: Body Fluid Source Synovial Fluid; Clarity Cloudy/Turbid (Clear)
[2019-03-27 13:02] LABS: BF Color Red; Tube # EDTA
--- NOTE | 2019-03-27 15:06 | PDOC.HOSPP ---
- Subjective Encounter Date: 03/27/19 Encounter Time: 15:00 Subjective: f/u for R hip pain with concern for septic arthritis and periprosthetic infection. Receiving Levaquin/Rocephin currently. Still c/o R hip pain with slightest movement. - Objective Vital Signs & Weight: Vital Signs (12 hours) Temp Pulse Resp BP BP Pulse Ox 03/27/19 11:28 97.9 F 79 20 108/62 93 L 03/27/19 10:00 133/105 H 03/27/19 08:20 97.6 F 83 20 113/105 H 96 03/27/19 03:56 98.2 F 78 20 90/40 L 96 Weight Weight 165 lb 11.2 oz I&O: 03/26/19 03/27/19 03/28/19 06:59 06:59 06:59 Intake Total 450 1184 Output Total 200 700 Balance 250 484 Result Diagrams: 03/27/19 03:35 03/27/19 03:30 Additional Labs: Microbiology 03/26/19 00:02 Nasal swab Influenza Types A,B Direct EIA - Final 03/25/19 22:58 Urine voided Urine Culture - Final NO GROWTH AT 36 HOURS 03/27/19 10:51 Joint - Fluid Body Fluid Culture - Preliminary 03/25/19 22:58 Urine voided Urine Culture - Preliminary NO GROWTH AT 12 HOURS 03/25/19 22:35 Venous blood - Left Arm Blood Culture - Preliminary Specimen has been received and culture in progress. No Growth to date. 03/25/19 22:35 Venous blood - Left Arm Blood Culture - Preliminary NO GROWTH AT 48 HOURS 03/25/19 22:30 Venous blood - Right Arm Blood Culture - Preliminary Specimen has been received and culture in progress. No Growth to date. 03/25/19 22:30 Venous blood - Right Arm Blood Culture - Preliminary NO GROWTH AT 48 HOURS Laboratory Tests 09/24/17 09/24/17 09/25/17 18:07 18:07 04:27 WBC Hgb Hct Neutrophils % Neutrophils % (Manual) BUN Creatinine 1.51 H Creatine Kinase 239 H Troponin I B-Natriuretic Peptide 1401.8 H 2121.0 H C-Reactive Protein 09/26/17 10/20/17 12/07/17 03:41 06:45 14:00 WBC Hgb Hct Neutrophils % Neutrophils % (Manual) BUN Creatinine Creatine Kinase Troponin I B-Natriuretic Peptide 2144.2 H 958.1 H 2088.1 H C-Reactive Protein 01/21/19 01/21/19 03/25/19 01:33 01:33 22:35 WBC 10.1 Hgb 13.6 L Hct 40.9 L Neutrophils % 73.7 Neutrophils % (Manual) BUN 27 H Creatinine 1.32 H Creatine Kinase Troponin I B-Natriuretic Peptide C-Reactive Protein 03/25/19 03/25/19 03/26/19 22:35 22:35 02:12 WBC Hgb Hct Neutrophils % Neutrophils % (Manual) BUN Creatinine Creatine Kinase Troponin I 0.043 H 0.026 B-Natriuretic Peptide 725.6 H C-Reactive Protein 03/26/19 03/26/19 03/26/19 03:52 03:52 03:52 WBC 16.7 H Hgb 13.7 L Hct Neutrophils % 75.1 H Neutrophils % (Manual) BUN Creatinine 1.28 Creatine Kinase Troponin I 0.050 H B-Natriuretic Peptide C-Reactive Protein 03/27/19 03/27/19 03:35 03:35 WBC Hgb Hct Neutrophils % Neutrophils % (Manual) 66 BUN Creatinine Creatine Kinase Troponin I B-Natriuretic Peptide C-Reactive Protein 18.40 H EKG Reviewed by me: Yes (Tele - A-fib) Hospitalist ROS - Medication Medications: Active Medications Generic Name Dose Route Start Last Admin Trade Name Freq PRN Reason Stop Dose Admin Hydrocodone Bitart/Acetaminophen 1 tab 03/26/19 02:07 03/26/19 14:24 [place] 7.5/325 PO 1 tab Q4H PRN Administration Moderate Pain (4-6) Apixaban 5 mg 03/26/19 09:00 03/26/19 08:49 Eliquis PO 5 mg BID FRANDY Administration Carvedilol 6.25 mg 03/26/19 09:00 03/27/19 10:00 Coreg PO 6.25 mg TID FRANDY Administration Clopidogrel Bisulfate 75 mg 03/26/19 09:00 03/27/19 09:59 Plavix PO 75 mg DAILY FRANDY Administration Diphenhydramine HCl 25 mg 03/26/19 17:43 03/26/19 20:58 Benadryl PO 25 mg Q6H PRN Administration Itching & Insomnia Famotidine 20 mg 03/26/19 09:00 03/27/19 10:00 Pepcid PO 20 mg DAILY FRANDY Administration Gabapentin 300 mg 03/26/19 09:00 03/27/19 10:01 Neurontin PO 300 mg BID FRANDY Administration Ceftriaxone Sodium 2 gm/ 100 mls @ 200 mls/hr 03/26/19 03:00 03/27/19 02:10 Sodium Chloride IVPB 100 mls Q24HR FRANDY Administration Levofloxacin 750 mg/ Device 150 mls @ 100 mls/hr 03/26/19 04:00 03/27/19 03: 41 IVPB 150 mls Q24HR FRANDY Administration Sodium Chloride 1,000 mls @ 50 mls/hr 03/27/19 10:15 03/27/19 11:07 Normal Saline 0.9% IV 1,000 mls .Q20H FRANDY Administration Isosorbide Mononitrate 15 mg 03/26/19 09:00 03/27/19 10:01 Imdur Er PO 15 mg DAILY FRANDY Administration Morphine Sulfate 4 mg 03/26/19 17:44 03/27/19 08:23 Morphine SLOW IVP 4 mg Q4H PRN Administration Moderate to Severe Pain (6-10) Ondansetron HCl 4 mg 03/26/19 02:07 03/26/19 21:09 Zofran IVP 4 mg Q6H PRN Administration Nausea/Vomiting Oxycodone/Acetaminophen 1 tab 03/26/19 02:10 03/27/19 11:06 Percocet 5/325 PO 1 tab Q4H PRN Administration Pain Sodium Chloride 10 ml 03/26/19 21:22 03/27/19 02:12 Flush - Normal Saline IVF 10 ml PRN PRN Administration Saline Flush - Exam General Appearance: awake alert General - other findings: groggy Eye: PERRL, anicteric sclera ENT: normocephalic atraumatic, no oropharyngeal lesions Neck: supple, symmetric, no JVD, no thyromegaly Heart: no gallops, no rubs, normal peripheral pulses, irregular Respiratory: CTAB, no wheezes, no rales, no ronchi Gastrointestinal: soft, non-tender, non-distended, normal bowel sounds Extremities: no cyanosis Extremities - other findings: R hip TTP and decreased ROM Skin: normal turgor, no lesions Neurological: cranial nerve grossly intact, no new deficit Musculoskeletal: normal tone, generalized weakness Psychiatric: normal affect, A&O x 3 Hosp A/P (1) Septic arthritis of hip Code(s): M00.9 - PYOGENIC ARTHRITIS, UNSPECIFIED Status: Acute Plan: Plan for R total hip revision, start Vancomycin, continue Rocephin, appreciate Ortho assistance (2) Community acquired bacterial pneumonia Code(s): J15.9 - UNSPECIFIED BACTERIAL PNEUMONIA Status: Acute Plan: Continue Rocephin IV, pulmonary support (3) MATEUS (acute kidney injury) Code(s): N17.9 - ACUTE KIDNEY FAILURE, UNSPECIFIED Status: Acute Plan: Avoid nephrotoxic meds and limit contrast, serial creatinine, IVF's (4) Chronic anticoagulation Code(s): Z79.01 - FDC (CURRENT) USE OF ANTICOAGULANTS Status: Acute Plan: Eliquis on hold pending surgical intervention (5) CKD (chronic kidney disease), stage III Code(s): N18.3 - CHRONIC KIDNEY DISEASE, STAGE 3 (MODERATE) Status: Chronic (6) Osteoarthritis Code(s): M19.90 - UNSPECIFIED OSTEOARTHRITIS, UNSPECIFIED SITE Status: Chronic - Plan plan discussed w/ family, continue antibiotics, social worker masters, respiratory therapy, DVT proph w/SCDs Stable currently Continue pain control, add Morphine Sulfate IV Orthopedics consult appreciated Continue Rocephin, start Vancomycin 1gm IV BID Eliquis on hold Plan for R total hip revision in 24h AM lab: BMP, CBC
[2019-03-27] MEDS: Vancomycin HCl 1 GM in Premix Bag 1 BAG IVPB SCH (16:52)
[2019-03-28] MEDS: cefTRIAXone\\ROCEPHIN 2 GM in Sodium Chloride 0.9% 100 ML IVPB SCH (02:22)
[2019-03-28] MEDS: Sodium Chloride 0.9% 1,000 ML IV SCH ×3 (03:17→17:10)
[2019-03-28] MEDS: Vancomycin HCl 1 GM in Premix Bag 1 BAG IVPB SCH (03:18)
[2019-03-28] MEDS: Bisacodyl 5 MG TAB PO PRN (03:51)
[2019-03-28 05:58] LABS: Albumin 2.8 g/dL (3.4-4.8); Anion Gap 13 mmol/L (10-20); BUN (Urea Nitrogen) 47 mg/dL (8.4-25.7); BUN/Creatinine Ratio 18.01; Calc. Creatinine Clearance 22 mL/min (70-130); Calcium 8.2 mg/dL (7.8-10.44); Carbon Dioxide 28 mmol/L (23-31); Chloride 100 mmol/L (98-107); Estimated GFR-MDRD 24; Glucose 123 mg/dL (83-110); Potassium 4.2 mmol/L (3.5-5.1); Sodium 137 mmol/L (136-145)
[2019-03-28 06:36] LABS: Hemoglobin 12.9 g/dL (14.0-18.0); Mean Corpuscular HGB CONC 32.2 g/dL (32.0-36.0); Mean Corpuscular Volume 99.3 fL (78.0-98.0); Mean Platelet Volume 9.3 fL (7.4-10.4); Platelet Count 119 thou/uL (130-400); RBC Distribution Width 13.6 % (11.5-14.5); Red Blood Cell (RBC) Count 4.03 mill/uL (4.70-6.10); White Blood Cell (WBC) Count 12.5 thou/uL (4.8-10.8)
[2019-03-28] MEDS: Morphine 4 MG/ML VIAL SLOW IVP PRN (07:56)
[2019-03-28] MEDS: Clopidogrel Bisulfate 75 MG TAB PO SCH (08:00)
[2019-03-28 08:10] LABS: Band 10 % (5-11); Eosinophils 1 % (0-10); Lymphocytes 20 % (21-51); MDiff Complete? YES; Monocytes 7 % (0-10); Neutrophil 62 % (42-75); Platelet Morphology Comment Appears Decreased; RBC Morphology Normal
[2019-03-28 08:32] LABS: Vancomycin, Random 27.6 ug/mL (See Comment)
[2019-03-28] MEDS: Apixaban 5 MG TAB PO SCH ×2 (08:45→20:43)
[2019-03-28] MEDS: Isosorbide Mononitrate (ER) 30 MG TAB PO SCH (08:45)
[2019-03-28] MEDS: Carvedilol 6.25 MG TAB PO SCH ×3 (08:45→20:42)
[2019-03-28] MEDS: Famotidine 20 MG TAB PO SCH (08:45)
[2019-03-28] MEDS ORDERED: Rocuronium Bromide 10 MG/ML (10ML VIAL) ONE (09:43)
[2019-03-28] MEDS ORDERED: PROPOFOL 200 MG/20 ML VIAL ONE (09:43)
--- NOTE | 2019-03-28 12:22 | PQF ---
JAYLEN MADSEN ZBIGNIEW A MD [id number] [facility] [id number] CLINICAL DOCUMENTATION IMPROVEMENT CLARIFICATION FORM: ICD-10 Updated PLEASE DO AN ADDENDUM TO THE PROGRESS NOTE WITH ANY DOCUMENTATION UPDATES OR ADDITIONS AND CARRY THROUGH TO DC SUMMARY. THANK YOU. DATE: 03/28/19 ATTN: DR. Geovanny BORREGO Please exercise your independent, professional judgment in responding to the clarification form. Clinical indicators are provided on the bottom of this form for your review. Please check appropriate box(s): [ x ] Acute Respiratory Failure: [ x ] with Hypoxia[ ] with Hypercapnia [ ] Acute On Chronic Respiratory Failure: [ ] with Hypoxia [ ] with Hypercapnia [ ] Acute Respiratory Failure due to: (etiology) [ ] Hypoxia [ ] Other diagnosis [ ] Unable to determine In addition, please specify: Present on Admission (POA): [ x] Yes [ ] No [ ] Unable to determine For continuity of documentation, please document condition throughout progress notes and discharge summary. Thank You. CLINICAL INDICATORS - SIGNS / SYMPTOMS / LABS / RESULTS AND LOCATION IN MR 03/26 ED REPORT: 91% O2 SAT ON RA> 99-100% 4L/NC, PULSE 96-102, RESP 20-03/26 H&P ( [place]UNDAYE) HE DENIES ANY SOB INITIALLY BUT ON ARRIVAL IN THE ED, HIS O2 SAT WAS LOW TO 82% ON RA. 03/26 CONSULT (OBI) ADMITTED DUE TO WORSENING GENERALIZED BODY ACHES WELL EXERTIONAL DYSPNEA. RISK: ADVANCED AGE (83), DX RT MIDDLE LOBE PNEUMONIA, ATYPICAL CHEST PAIN (H&P/ [place]UNDA[place]) 03/26 TREATMENTS: SUPPLEMENTAL OXYGEN ( 03/26-PRESENT) IV VANCOMYCIN ( 03/27-PRESENT) THANK YOU! [employer] (This form is maintained as a part of the permanent medical record) 2014 [employer]. All Rights Reserved [email or web address] [phone] MTDD
[2019-03-28] MEDS ORDERED: Norepinephrine 8 MG/250 ML IVPB SCH (12:45)
--- NOTE | 2019-03-28 12:51 | PRG ---
DATE OF SERVICE: 03/28/2019 SUBJECTIVE: Patient is seen and examined at the bedside. He was just moved from telemetry to [facility] secondary to his recurrent hypotension. Apparently, he received morphine IV push this morning and his blood pressure went down to the systolic 70s. He was treated with fluids then because of recurrent hypotension. He was moved to [facility] for further management and close observation. He was given total 1000 mL of normal saline for his hypotension. He states that he feels better. Also, he states that he wants to be do not resuscitate status. OBJECTIVE: VITAL SIGNS: Blood pressure is 98/65, pulse is 82, afebrile. HEENT: His sclerae are nonicteric. Conjunctivae are palish. Oral mucosa is somewhat dry. LUNGS: Breath sounds diminished at both bases. HEART: S1, S2 distant. No S3. No S4. ABDOMEN: Soft, nontender, nondistended. EXTREMITIES: No clubbing, cyanosis, or edema. NEUROLOGIC: He is alert and oriented x4. There is no any motor deficits. LABORATORY DATA: Labs showed white count of 12.5, hemoglobin of 12.9, hematocrit 40.0, platelet count is 119. Normal electrolytes. BUN of 47, creatinine 2.61, glucose 123, phosphorus 5.0, creatine kinase 469, albumin 2.8. Microbiology, two blood cultures negative. Urine culture negative. Influenza type A and B negative. Joint fluid culture shows growth of alpha hemolytic Streptococcus few and the Gram stain showed many WBCs and rare gram-positive cocci. IMPRESSION: 1. Recurrent hypotension most likely multifactorial secondary to his dehydration, infection and the morphine use this morning. 2. Septic arthritis of the hip. 3. Acute kidney injury. 4. Osteoarthritis. 5. Chronic anticoagulation. 6. Suspected pneumonia. DISCUSSION: The patient became hypotensive this morning. As I mentioned above, most likely his cause of hypotension is multifactorial including dehydration, infection and morphine use. The patient was given 1000 mL of normal saline. His systolic blood pressure is up to 96-98 at this point. The code status was discussed with him and he chose to be do not attempt resuscitation. At this point, because of the worsening renal function, machine riveter, Dr. Quintana decided to hold his vancomycin today. We will continue his Rocephin. We will get the PICC line, and if his blood pressure goes down, we will move him to intensive care unit and start him on vasopressors. His platelet count is gradually going down. We are going to hold his Plavix and we will follow up on his troponin level to rule out acute SD and on his cultures tomorrow. Job ID: [id number]
[2019-03-28] MEDS ORDERED: Tobramycin Sulfate 1.2 GM VIAL ONE (13:02)
[2019-03-28 13:16] LABS: CKMB 8.4 ng/mL (0-6.6)
[2019-03-28] MEDS ORDERED: Sodium Chloride 0.9% 1,000 ML IV SCH (14:45)
--- NOTE | 2019-03-28 15:55 | SPC ---
SPC CVP LINE PICC INITAL >5 History: Need for long-term IV access Comparison: Chest radiograph March 25, 2019 Findings: The examination was performed at the patient's bedside. The right arm was prepped and drape d in normal sterile fashion. Using ultrasound guidance the right basilic vein was accessed. A wire was placed through the needle which cannot passed into the superior vena cava which was stenotic. Ove r a wire and through a peel-away sheath a 35 cm PICC was placed with tip at the right brachiocephalic vein. Impression: Ultrasound and x-ray guided PICC placement with tip at the right brachiocephalic vein due to SVC stenosis for which a wire could not be threaded.
[2019-03-28] MEDS ORDERED: fentaNYL Citrate/PF 2,000 MCG in Sodium Chloride 0.9% 60 ML IV SCH (16:53)
[2019-03-28] MEDS ORDERED: Morphine 2 MG/ML SYRINGE SLOW IVP PRN (16:53)
[2019-03-28] MEDS ORDERED: Lorazepam 2 MG/ML VIAL SLOW IVP PRN (16:53)
[2019-03-28] MEDS ORDERED: Fentanyl BOLUS 250 ML IVPB PRN (16:53)
[2019-03-28] MEDS ORDERED: DISCONTINUE PREVIOUS NARCOTIC PAIN MEDICATIONS AND BENZODIAZEPINES FS SCH (16:53)
[2019-03-28] MEDS ORDERED: Propofol 1,000 MG/100 ML VIAL IV PRN (16:53)
[2019-03-28] MEDS ORDERED: Propofol BOLUS 1,000 MG/100 ML VIAL IV PRN (16:53)
[2019-03-28 17:00] LABS: Actual Bicarbonate (HCO3a) 18.8 mEq/L (22-28); CO2 Tension 31.2 mmHg (35.0-45.0); Calcium, Ionized 1.05 mmol/L (1.12-1.30); Carboxyhemoglobin (COHb) 1.5 gm% (0.0-3.0); Hemoglobin (Hb) 12.5 g/dL (14.0-18.0); O2 Tension (PaO2) 96.6 mmHg (> 60.0)
[2019-03-28 17:01] LABS: Puncture Site LBA
--- NOTE | 2019-03-28 20:51 | PRG ---
DATE OF SERVICE: 03/28/2019 SERVICE: Nephrology. SUBJECTIVE: 83-year-old male with multiple comorbidities, including degenerative joint disease, ischemic cardiomyopathy with ejection fraction of 20% to 25% amongst others, who was admitted due to generalized body ache, especially right hip pain and difficulty ambulating. Nephrology is following patient for acute kidney injury superimposed on chronic kidney disease. The patient is n.p.o. since midnight for planned right hip revision for septic prosthetic joints, is noted to have hypotension after getting morphine. Chani bill was called and the patient was treated with IV normal saline with improvement. He, however, was noted to have hypotension and subsequently, another bolus of normal saline was provided. The patient was subsequently transferred to [facility] for further monitoring. The patient has remained afebrile. PHYSICAL EXAMINATION: VITAL SIGNS: Temperature 97.4, pulse 90, respiratory rate 16, SpO2 of 100% on 1.5 L nasal cannula, blood pressure is 101/55. GENERAL: Elderly male, in no obvious distress. HEENT: Normocephalic, atraumatic. CARDIOVASCULAR: Regular rhythm and rate with normal heart sounds one and two. RESPIRATORY: Fair air entry bilaterally with some transmitted breath sounds. GASTROINTESTINAL: Full, soft, nontender, nondistended with normal bowel sounds. EXTREMITIES: Lower extremities are grossly normal looking, atraumatic, with no edema or erythema. Right hip tenderness and decreased range of motion noted. PIANO ACCOMPANIST: Conscious, alert, oriented x3 with appropriate mental status. Cranial nerves 2 through 12 grossly intact. DIAGNOSTIC DATA: CBC showed WBC count of 12.5, hemoglobin of 12.9, MCV of 99.3, and platelets of 119. BMP today showed sodium 137, potassium 4.2, chloride 100, CO2 of 28, BUN 47, creatinine 2.61, glucose 123, calcium 8.2, phosphorus 5.2, and albumin 2.8. ASSESSMENT: 1. Acute kidney injury: Due to prerenal etiology related to hypotension and sepsis. Volume depletion from poor oral intake and prior use of diuretics also was contributory. 2. Chronic kidney disease stage 3. 3. Severe sepsis with hypotension. The patient is received cautious IV fluid therapy. Aggressive fluid resuscitation could not be provided due to ischemic cardiomyopathy with ejection fraction of 20% to 25%. 4. Ischemic cardiomyopathy. 5. Chronic systolic heart failure. 6. Right knee prosthetic septic joint. Hip replacement, revision is contemplated. PLAN: 1. Avoid nephrotoxic agents. 2. Continue gentle IV fluid therapy. 3. Continue broad-spectrum antibiotic therapy. 4. Recheck renal function test in the morning. 5. Further treatment to follow depending on hospital course. Job ID: [id number]
[2019-03-29] MEDS: Sodium Chloride 0.9% 1,000 ML IV SCH (02:32)
[2019-03-29] MEDS: cefTRIAXone\\ROCEPHIN 2 GM in Sodium Chloride 0.9% 100 ML IVPB SCH (02:32)
[2019-03-29 05:05] LABS: Anion Gap 13 mmol/L (10-20); BUN (Urea Nitrogen) 51 mg/dL (8.4-25.7); Calc. Creatinine Clearance 32 mL/min (70-130); Calcium 6.9 mg/dL (7.8-10.44); Carbon Dioxide 21 mmol/L (23-31); Chloride 110 mmol/L (98-107); Estimated GFR-MDRD 35; Glucose 87 mg/dL (83-110); Potassium 3.5 mmol/L (3.5-5.1); Sodium 140 mmol/L (136-145)
[2019-03-29 05:38] LABS: Band 9 % (5-11); Hemoglobin 10.3 g/dL (14.0-18.0); Lymphocytes 13 % (21-51); MDiff Complete? YES; Mean Corpuscular HGB CONC 33.3 g/dL (32.0-36.0); Mean Corpuscular Hemoglobin 32.9 pg (27.0-31.0); Mean Corpuscular Volume 98.7 fL (78.0-98.0); Mean Platelet Volume 8.9 fL (7.4-10.4); Monocytes 9 % (0-10); Neutrophil 69 % (42-75); Platelet Count 110 thou/uL (130-400); Platelet Morphology Comment Appears Decreased; RBC Distribution Width 13.2 % (11.5-14.5); Red Blood Cell (RBC) Count 3.13 mill/uL (4.70-6.10); White Blood Cell (WBC) Count 10.3 thou/uL (4.8-10.8)
[2019-03-29 07:57] LABS: Actual Bicarbonate (HCO3a) 20.8 mEq/L (22-28); Base Excess (BEa) -1.7 mEq/L (-2.0 to +3.0); CO2 Tension 28.7 mmHg (35.0-45.0); Calcium, Ionized 1.03 mmol/L (1.12-1.30); Carboxyhemoglobin (COHb) 0.6 gm% (0.0-3.0); Hemoglobin (Hb) 11.6 g/dL (14.0-18.0); O2 Tension (PaO2) 148.8 mmHg (> 60.0); Potassium - ABG Lab 3.68 mmol/L (3.70-5.30); pH, Arterial 7.48 (7.35-7.45)
[2019-03-29 07:59] LABS: ALV-art Gradient 100.525 (0-20); Puncture Site LB
[2019-03-29] MEDS ORDERED: Vancomycin HCl 1.25 GM in Sodium Chloride 0.9% 250 ML 250 ML IVPB SCH (08:00)
[2019-03-29] MEDS: Lactated Ringer's 1,000 ML IV SCH ×2 (09:01→17:56)
[2019-03-29] MEDS: Famotidine 20 MG TAB PO SCH (09:02)
[2019-03-29] MEDS: Carvedilol 6.25 MG TAB PO SCH ×3 (09:02→19:54)
[2019-03-29] MEDS: Clopidogrel Bisulfate 75 MG TAB PO SCH (09:02)
[2019-03-29] MEDS: Isosorbide Mononitrate (ER) 30 MG TAB PO SCH (09:04)
[2019-03-29] MEDS: Apixaban 5 MG TAB PO SCH (09:04)
--- NOTE | 2019-03-29 10:26 | RAD ---
EXAM: XR Hip Rt 2-3 View PROVIDED CLINICAL HISTORY: Surgery COMPARISON: 03/26/2019 FINDINGS: Interval removal of acetabular component. Soft tissue gas. Sclerotic and irregular appearance to the acetabulum. IMPRESSION: As above.
--- NOTE | 2019-03-29 10:58 | PRG ---
DATE OF SERVICE: 03/29/2019 SUBJECTIVE: Mr. Woods did well overnight. He is awake and alert. He denies pain. He was left intubated for pain control, but says his pain is adequately controlled now. He is wide awake. OBJECTIVE: VITAL SIGNS: Blood pressure 104/63, heart rate is 91, respiratory rate is 18 to 20, minute volume is less than 10 L a minute. LUNGS: Clear. HEART: Regular rhythm. ABDOMEN: Soft. EXTREMITIES: Without asymmetry. LABORATORY DATA: White count 10.3, hemoglobin 10.3, platelets 110. Sodium 140, potassium 3.5, chloride 110, bicarb 21, BUN 51, creatinine 1.84. PH 7.48, CO2 of 28, pO2 of 148. IMPRESSION: Status post mechanical ventilation for pain control after incision and drainage of a septic hip. I feel he meets criteria for extubation. This has been done successfully. He is comfortable on nasal cannula. He may need a pain pump and will assess his pain needs as we move forward. Job ID: [id number]
[2019-03-29] MEDS ORDERED: Sodium Chloride 0.9% 500 ML IV SCH (11:30)
--- NOTE | 2019-03-29 13:22 | PRG ---
DATE OF SERVICE: 03/29/2019 SUBJECTIVE: The patient is seen and examined at the bedside. He is under mild sedation. He got intubated yesterday per Dr. Ruiz, but he is able to communicate with me. It sounds like he is able to comprehend what I am communicating with him. OBJECTIVE: VITAL SIGNS: Blood pressure is 117/79, pulse is 91, respiratory rate is 21, and O2 saturation is 100%, he is on FiO2 of 30%. GENERAL: He is orally intubated. HEENT: His pupils are responding to light properly. Sclerae are nonicteric. Conjunctivae are palish. LUNGS: Breath sounds are diminished at both bases. HEART: S1 and S2 normal. No S3. No S4. ABDOMEN: Soft, nontender, and nondistended. Bowel sounds are present. EXTREMITIES: No clubbing, cyanosis, or edema. NEUROLOGICAL: He is following my commands. He is able to move his all 4 extremities, although he has soft restraints on both wrists. LABORATORY DATA: Labs showed white count of 10.3, hemoglobin 10.3, hematocrit 30.9, and platelet count is 110. ABGs showed pH of 7.48, pCO2 of 28.7, pO2 of 148.8, base excess is -1.7. Sodium was 140, potassium 3.5, chloride 110, CO2 of 21, BUN 51, creatinine 1.84, glucose 87, and calcium 6.9. Microbiology, culture of the right hip fluid is growing Streptococcus gordonii, which is sensitive to ampicillin, clindamycin, levofloxacin, cefotaxime, ceftriaxone, penicillin, tetracycline, and vancomycin. IMAGING DATA: X-ray of the right hip showed interval removal of acetabular component with soft tissue gas, sclerotic and irregular appearance to the acetabulum. IMPRESSION: 1. Septic arthritis of the hip. 2. Acute kidney injury, multifactorial. 3. Chronic anticoagulation. His apixaban was stopped today. 4. Suspected pneumonia. PLAN: The plan is to extubate him today and per Pulmonary, we will keep him on Rocephin. Vancomycin was stopped. His fluids were switched to lactated Ringer's. He will remain in the intensive care unit for supportive care. Job ID: [id number]
--- NOTE | 2019-03-29 14:34 | CON ---
DATE OF CONSULTATION: 03/29/2019 REASON FOR CONSULTATION: Right hip infection. HISTORY OF PRESENT ILLNESS: An 83-year-old, who has a history of coronary artery disease, hypertension, mitral valve replacement and AICD placement, and osteoarthritis with prior right hip replacement many years ago, who developed right hip pain of acute onset. Dr. Douglas was consulted and the patient underwent excision. The patient underwent removal of the right hip implant and replacement with an articulated spacer after arthrocentesis demonstrated infectious process or inflammatory process. The culture thus far shows Streptococcus gordonii, which is pansusceptible except for erythromycin. The patient is just recently extubated. He is awake and alert. No headaches, visual symptoms, sore throat, odynophagia, or dysphagia. No dyspnea or cough. No chest pain. No abdominal pain or diarrhea. He is voiding with an indwelling Velasquez catheter and has a PICC line inserted in the right side. PAST MEDICAL HISTORY: Coronary artery disease, mitral valve replacement with a porcine valve, osteoarthrosis, AICD placement, hypertension, GERD, prior right hip replacement, and hyperlipidemia. PAST SURGICAL HISTORY: Cholecystectomy, has had a colonoscopy in the distant past, and the other procedures as mentioned above. SOCIAL HISTORY: Retired, used to work with pipe feeding. Lives in [place]. Quit smoking 30 years ago. ALLERGIES: NONE. CURRENT MEDICATIONS: 1. Tylenol. 2. Dulcolax. 3. Coreg. 4. Ceftriaxone. 5. Fentanyl. 6. Ringer's lactate. 7. Levophed. FAMILY HISTORY: Noncontributory. PHYSICAL EXAMINATION: VITAL SIGNS: T-max 99.9, blood pressure 117/79, heart rate 91, respiratory rate 21, saturation 100% in nasal cannula O2 of 2 L. SKIN: Shows the right hip operative site in usual appearance. No drains. The patient has a PICC line in right upper extremity and Velasquez catheter. No lymphadenopathy or alopecia. Male pattern. HEENT: Ocular movements conjugate. Pupils are equal. Conjunctivae are normal. Oral cavity with numerous teeth with quite a bit of decay and gum disease. NECK: Supple. No jugular vein distention or carotid bruits. AICD pocket site appears normal. LUNGS: Symmetric air entry. There are faint basilar crackles. HEART: S1 and S2. Regular rate. No S3 or S4. ABDOMEN: Soft, not distended or tender. No ascites. No bladder distention. EXTREMITIES: No other joint inflammatory process. He does have a lot of joint deformity in hands and feet and osteoarthritis mostly related to osteoarthritis. Pulses 1+ in dorsalis pedis. Some element of stasis dermatitis in lower extremities. Onychodystrophy noted. NEUROLOGIC: Nonfocal. He is awake, oriented, follows commands. LABORATORY STUDIES: White cell count was 10.1, it went up to 16.7 and now is down to 10.3; hemoglobin down to 10.3; and platelets 110, which is down from admission, 13% lymphocytes. Sodium 140, creatinine started at 1.32, it went up to 2.6 and now is 1.8 with GFR of 35. CK 469. Albumin 2.8. Procalcitonin 4.05. Urinalysis with 0 to 3 wbc's, 70 protein. Synovial fluid; cloudy, turbid. They could not give us a cell count, though protein was 8.5. Microbiology with Streptococcus gordonii from the joint fluid. Two sets of blood cultures, no growth at 48 hours. Urine culture, no growth at 36 hours. There is a hip x-ray from today with removal of acetabular component, soft tissue gas, postoperative finding mostly. He has the hip arthrogram and joint aspiration injection procedure. There was a CTA done on March 25 , which showed no pulmonary embolism. No inflammatory infiltrate and stranding with pleural-based nodularity in peripheral right middle lobe. ASSESSMENT: 1. Ischemic cardiomyopathy with mitral valve replacement and automatic implantable cardioverter-defibrillator. 2. Asbestos exposure. 3. Distant right hip replacement, now with hematogenous Streptococcus gordonii infection of the right hip. 4. Pain in the left lower quadrant on palpation, which is reproducible. DISCUSSION: The differential diagnosis includes hematogenous Streptococcus gordonii infection of the right hip, status post removal of the implant and placement of a spacer. The patient will be treated with Rocephin for 6 weeks and then transitioned to oral Keflex for suppressive therapy. In view of the pain and tenderness in the left lower quadrant, I would recommend the imaging study whenever his creatinine stabilizes and allows contrast administration, intravenous or could perform an oral contrast study only. The concerns would be diverticulitis or malignancy or other forms of colitis. That may be the origin of the bacteremia that resulted in the dissemination to the right hip. The valve does not seem to be involved since the blood cultures are negative. Assuming the episode as a consequence of hematogenous spread, it is conceivable that the valve might have been seeded as well as the AICD leads, so if he develops fever in the future, repeat blood cultures will be essential and if bacteremia then is identified, then concern with valvular infection or AICD colonization would have to be evaluated for. The disposition will probably involve transfer to rehab or skilled unit and eventually completion of treatment in the home setting. Job ID: [id number] [email or web address]
[2019-03-29] MEDS: Morphine 4 MG/ML VIAL SLOW IVP PRN ×3 (16:43→23:25)
--- NOTE | 2019-03-29 18:26 | PRG ---
DATE OF SERVICE: 03/29/2019 SERVICE: Nephrology. SUBJECTIVE: An 83-year-old male admitted due to generalized body aches, especially right hip pain and inability to bear weight on the right leg. Nephrology is following the patient for acute on chronic renal failure. The patient had a hypotensive episode requiring fluid resuscitation and subsequently had right hip revision. Blood pressures are better. The patient is more comfortable and conversational. OBJECTIVE: VITAL SIGNS: Temperature 98.2, pulse 90, respiratory rate 24, SpO2 100% on 2 L nasal cannula, blood pressure is 132/76. GENERAL: Elderly male, in no obvious distress. Afebrile. Anicteric. Acyanotic. HEENT: Normocephalic, atraumatic. Oral mucosa is moist. CARDIOVASCULAR: Regular rhythm and rate with normal heart sounds. RESPIRATORY: Fair air entry bilaterally with some transmitted breath sounds. No respiratory distress appreciated. GI: Full, soft, nontender, nondistended with normal bowel sounds. UROGENITAL: Velasquez catheter is absent. EXTREMITIES: Surgical dressing over the lateral aspect of right hip noted. Lower extremities are otherwise grossly normal with no edema. Some stasis dermatitis of bilateral distal legs also is apparent. RESTAURANT GENERAL MANAGER: Conscious, alert, oriented x3 with appropriate mental status. The patient moves all extremities. DIAGNOSTIC DATA: CBC showed WBC count of 10.3, hemoglobin of 10.3, MCV of 98.7, platelets of 110. Arterial blood gas earlier today showed pH of 7.48, pCO2 of 28.7, pO2 of 148.8. Ionized calcium is 1.03. BMP today showed sodium 140, potassium 3.5, chloride 110, CO2 of 21, BUN 51, creatinine 1.84, glucose 87, calcium 6.9. Right hip aspirate cultures grew Streptococcus gordonii susceptible to ampicillin, cefotaxime, ceftriaxone, clindamycin, vancomycin, and tetracycline. ASSESSMENT: 1. Acute kidney injury: Due to prerenal etiology related to hypotension and sepsis. The patient also is volume depleted from poor oral intake and diuretic therapy. Creatinine is beginning to trend down with fluid resuscitation. 2. Chronic kidney disease stage 3. 3. Severe sepsis with hypotension requiring pressors due to severe cardiomyopathy with EF of 20% to 25%, resolved. 4. Ischemic cardiomyopathy with EF of 20% to 25%. 5. Right hip prosthetic septic joint. Status post hip revision with antibiotic spacer. PLAN: 1. We will continue gentle IV fluid therapy. 2. Antibiotic therapy as per primary attending and Infectious Diseases. 3. We will renally dose all antibiotics. 4. Avoid nephrotoxic agents. 5. Repeat renal function test in the morning. Further treatment to follow depending on hospital course. Job ID: [id number]
[2019-03-29] MEDS: Bisacodyl 5 MG TAB PO PRN (20:25)
[2019-03-30] MEDS: cefTRIAXone\\ROCEPHIN 2 GM in Sodium Chloride 0.9% 100 ML IVPB SCH (02:50)
[2019-03-30] MEDS: Lactated Ringer's 1,000 ML IV SCH ×2 (02:55→08:46)
[2019-03-30 03:14] LABS: #Lymphocytes 1.2 thou/uL (1.20-3.40); #Neutrophils 5.3 thou/uL (1.40-6.50); %Basophils 0.4 % (0.0-1.0); %Eosinophils 0.5 % (0.0-10.0); %Lymphocytes 15.2 % (21.0-51.0); %Monocytes 13.5 % (0.0-10.0); %Neutrophils 70.4 % (42.0-75.0); Hemoglobin 9.7 g/dL (14.0-18.0); Mean Corpuscular HGB CONC 33.4 g/dL (32.0-36.0); Mean Corpuscular Volume 98.8 fL (78.0-98.0); Mean Platelet Volume 8.5 fL (7.4-10.4); Platelet Count 122 thou/uL (130-400); RBC Distribution Width 13.1 % (11.5-14.5); Red Blood Cell (RBC) Count 2.95 mill/uL (4.70-6.10); White Blood Cell (WBC) Count 7.5 thou/uL (4.8-10.8)
[2019-03-30 03:49] LABS: Anion Gap 11 mmol/L (10-20); BUN (Urea Nitrogen) 42 mg/dL (8.4-25.7); Calc. Creatinine Clearance 50 mL/min (70-130); Calcium 7.6 mg/dL (7.8-10.44); Carbon Dioxide 24 mmol/L (23-31); Chloride 108 mmol/L (98-107); Estimated GFR-MDRD 54; Glucose 96 mg/dL (83-110); Potassium 3.7 mmol/L (3.5-5.1); Sodium 139 mmol/L (136-145)
[2019-03-30] MEDS: Clopidogrel Bisulfate 75 MG TAB PO SCH (08:41)
[2019-03-30] MEDS: Famotidine 20 MG TAB PO SCH (08:41)
[2019-03-30] MEDS: Carvedilol 6.25 MG TAB PO SCH ×3 (08:44→20:50)
--- NOTE | 2019-03-30 09:04 | CON ---
DATE OF CONSULTATION: 03/28/2019 HISTORY OF PRESENT ILLNESS: Mr. Woods is an 83-year-old male. He was found to have a septic hip. He was taken to the operating room. He was left intubated for pain control. His pain was excruciating prior to surgery. PAST MEDICAL HISTORY: Remarkable for; 1. Hypertension. 2. Lipid disorder. 3. History of skin cancer. 4. History of mitral valve replacement. 5. History of defibrillator. 6. History of reflux disease. 7. History of degenerative arthritis. 8. History of lipid disorder. 9. History of left ventricular systolic dysfunction. 10. History of cholecystectomy. SOCIAL HISTORY: He is nonsmoker and nondrinker. ALLERGIES: THERE ARE NO REPORTED ALLERGIES. FAMILY HISTORY: Negative for lung disease in early age. PHYSICAL EXAMINATION: GENERAL: He is examined after surgery, he was still sedated. He was orally intubated. VITAL SIGNS: His hemodynamics were stable. He is running blood pressures between 80 and 100. HEAD AND NECK: Unremarkable. LUNGS: Clear. HEART: Regular rhythm, grade 1 to 2/6 systolic murmur. ABDOMEN: Soft and nontender. EXTREMITIES: Without clubbing, cyanosis, or edema. LABORATORY DATA: Lab was reviewed. Chest radiograph was reviewed. IMPRESSION: Status post washout of an infected hip. Microbiology is growing Strep gordonii from his joint fluid, this is only resistant to erythromycin. We will keep him mechanically ventilated and reassess him during his sedation holiday for pain control. If his pain is not controlled, he will remain intubated. If his pain is controlled, we will begin weaning and extubation. CRITICAL CARE TIME: 30 minutes. Job ID: [id number]
[2019-03-30] MEDS ORDERED: Apixaban 2.5 MG TAB PO SCH (10:30)
[2019-03-30] MEDS: Acetaminophen/Codeine 30-300mg Tablet PO PRN (10:41)
--- NOTE | 2019-03-30 11:02 | PRG ---
DATE OF SERVICE: 03/30/2019 SUBJECTIVE: Sree Woods is doing well. He complains of a little pain, but Tylenol does not quite cover. I will start him on Tylenol No.3. I think it is reasonable to start back on prophylactic dose Eliquis for now. He can continue with his Plavix. He is on Rocephin for his hip. Microbiology shows that the organism is cephalosporin sensitive, so I would discontinue the vancomycin given his 83 years of age. I do believe he is stable to move out to the 3rd floor. His hemodynamics have been stable. OBJECTIVE: VITAL SIGNS: Blood pressure 124/73, heart rate 93, respiratory rate 15, oximetry is 99. LUNGS: Clear. HEART: Regular rhythm. ABDOMEN: Soft and nontender. EXTREMITIES: Warm. LABORATORY DATA: White count 7.5, hemoglobin 9.7, it was 10.3 yesterday, platelets 122. Sodium 139, potassium 3.7, chloride 108, bicarb 24, BUN 42, creatinine 1.27. IMPRESSION: 1. Septic hip. 2. Clinical sepsis. 3. Renal insufficiency that is improved with resolution of his clinical sepsis. PLAN: We will continue to follow with other physicians caring for him. Fortunately, his blood cultures are negative, making endocarditis less of a possibility given that he has mitral valve replacement. Job ID: [id number]
--- NOTE | 2019-03-30 12:11 | CON ---
DATE OF CONSULTATION: HISTORY OF PRESENT ILLNESS: Mr. Woods is an unfortunate 83-year-old with a septic hip. He has grown out full hemolytic strep out of his joint fluid from yesterday. His blood cultures are negative. He went to the OR for a washout. His hip pain is excruciating prior to surgery until, so I recommended that Anesthesia leave him intubated so we can manage his pain without worry of respiratory depression. Apparently, he today made himself do not resuscitate patient. PAST MEDICAL HISTORY: Remarkable for; 1. COPD. 2. Hypertension. 3. Anticoagulation for atrial fibrillation. 4. History of right hip replacement. 5. History of degenerative arthritis of his knees. 6. Lipid disorder. 7. History of skin cancer resected on his face. 8. History of mitral regurgitation with mitral valve replacement. 9. History of an AICD. 10. History of reflux disease. 11. History of congestive heart failure. 12. History of cholecystectomy. SOCIAL HISTORY: He is a nonsmoker and nondrinker currently. He is . REVIEW OF SYSTEMS: Not obtainable. PHYSICAL EXAMINATION: GENERAL: He is mechanically ventilated. VITAL SIGNS: Heart rate is in the 90s, respiratory rates in the teens, and blood pressure is 93 to 104 systolic. EYES: Pupils react. Sclerae are anicteric. NECK: Supple. LUNGS: Clear. HEART: Regular rhythm. No S3. ABDOMEN: Soft and nontender. EXTREMITIES: No clubbing, cyanosis, or edema. He does have bandage. LABORATORY DATA: White count 12.5, hemoglobin 12.9, and platelets 119. Sodium 137, potassium 4.2, chloride 100, bicarb 28, BUN 47, and creatinine 2.6. PH 7.4, CO2 of 31, and PO2 of 96 after surgery. IMPRESSION: 1. Septic hip. 2. Respiratory failure left intubated pain control, mechanical ventilation. Probably begin allowing him to awaken, get him a fentanyl pain pump on Sunday. I will keep him sedated for the first 24 hours to facilitate pain control and then on Sunday start the weaning process. Critical care time 35 minutes Job ID: [id number] [facility]
[2019-03-30] MEDS: diphenhydrAMINE 25 MG CAP PO PRN (12:46)
--- NOTE | 2019-03-30 19:10 | PRG ---
DATE OF SERVICE: 03/30/2019 SERVICE: Nephrology. SUBJECTIVE: An 83-year-old male with CKD, being followed up for acute kidney injury. The patient was admitted due to generalized body ache and right hip pain and inability to bear weight on the right side. Found to have right hip septic arthritis for which he is status post revision. The patient had hypotension, which had improved. Reports feeling better. Oral intake however is still suboptimal. OBJECTIVE: VITAL SIGNS: Temperature 98.9, pulse 98, respiratory rate 14, SpO2 100% on room air, blood pressure is 103/69. GENERAL: Elderly male, in no distress. HEENT: Normocephalic, atraumatic. Oral mucosa is moist. CARDIOVASCULAR: Regular rhythm with frequent ectopic. Normal heart sounds. RESPIRATORY: Fair air entry bilaterally with few transmitted breath sounds. No obvious crackle or rhonchi or use of accessory muscles appreciated. GI: Full, soft, nontender, nondistended with normal bowel sounds. UROGENITAL: Velasquez catheter is in place draining urine. EXTREMITIES: Surgical dressing over the right lateral aspect of right hip noted. No edema appreciated. HOB GRINDER: Conscious, alert, oriented x3 with appropriate mental status. DIAGNOSTIC DATA: CBC showed WBC count of 7.5, hemoglobin of 9.7, MCV of 98.8, platelet of 122. Of note, the patient on presentation had hemoglobin of 14.9 which is down to 9.7 currently. BMP showed sodium 139, potassium 3.7, chloride 108, CO2 of 24, BUN 42, creatinine 1.27, glucose 96, calcium 7.6. Of note, creatinine was 1.32 on presentation, which went up to a peak of 2.61 before trending down to 1.27 currently. ASSESSMENT: 1. Acute kidney injury: Due to prerenal etiology related to septic shock and volume depletion. 2. Chronic kidney disease stage 3. 3. Septic shock. 4. Volume depletion. 5. Right septic hip. PLAN: 1. We will decrease IV fluid therapy to 50 mL/h from 100 due to history of systolic heart failure with EF of 20% to 25%. 2. [place] oral intake advised. 3. We will start the patient on oral supplementation with Ensure Enlive 1 b.i.d. 4. We will hold antihypertensives except carvedilol due to hypotension. 5. We will recheck renal function test in the morning. 6. Further treatment as per primary attending and other specialties. Job ID: [id number]
--- NOTE | 2019-03-30 20:23 | PDOC.HOSPP ---
- Subjective Encounter Date: 03/30/19 Encounter Time: 20:25 Subjective: f/u R hip septic arthritis s/p hardware removal and washout on current Rocephin daily. - Objective Vital Signs & Weight: Vital Signs (12 hours) Temp Pulse Resp BP BP Pulse Ox 03/30/19 19:53 86 93 L 03/30/19 19:33 98.2 F 45 L 16 139/69 93 L 03/30/19 15:06 97.4 F L 87 18 100/62 97 03/30/19 08:44 91/67 Weight Weight 182 lb 8.684 oz Most Recent Monitor Data Heart Rate from ECG 93 NIBP 124/73 NIBP BP-Mean 90 Respiration from ECG 15 SpO2 99 I&O: 03/29/19 03/30/19 03/31/19 06:59 06:59 06:59 Intake Total 1637.8 4431 1442 Output Total 805 1197 545 Balance 832.8 3234 897 Result Diagrams: 03/30/19 03:07 03/30/19 03:07 Additional Labs: Microbiology 03/27/19 10:51 Joint - Fluid Body Fluid Culture - Final Streptococcus gordonii 03/26/19 00:02 Nasal swab Influenza Types A,B Direct EIA - Final 03/25/19 22:58 Urine voided Urine Culture - Final NO GROWTH AT 36 HOURS 03/27/19 10:51 Joint - Fluid Body Fluid Culture - Preliminary 03/25/19 22:58 Urine voided Urine Culture - Preliminary NO GROWTH AT 12 HOURS 03/25/19 22:35 Venous blood - Left Arm Blood Culture - Preliminary Specimen has been received and culture in progress. No Growth to date. 03/25/19 22:35 Venous blood - Left Arm Blood Culture - Preliminary NO GROWTH AT 48 HOURS 03/25/19 22:30 Venous blood - Right Arm Blood Culture - Preliminary Specimen has been received and culture in progress. No Growth to date. 03/25/19 22:30 Venous blood - Right Arm Blood Culture - Preliminary NO GROWTH AT 48 HOURS Laboratory Tests 09/24/17 09/24/17 09/25/17 18:07 18:07 04:27 WBC Hgb Hct Neutrophils % Neutrophils % (Manual) ESR Westergren BUN Creatinine 1.51 H Lactic Acid Phosphorus Creatine Kinase 239 H Troponin I B-Natriuretic Peptide 1401.8 H 2121.0 H C-Reactive Protein 06/20/18 07/14/18 08/31/18 03:41 06:45 14:00 WBC Hgb Hct Neutrophils % Neutrophils % (Manual) ESR Westergren BUN Creatinine Lactic Acid Phosphorus Creatine Kinase Troponin I B-Natriuretic Peptide 2144.2 H 958.1 H 2088.1 H C-Reactive Protein 01/21/19 01/21/19 03/25/19 01:33 01:33 22:35 WBC 10.1 Hgb 13.6 L Hct 40.9 L Neutrophils % 73.7 Neutrophils % (Manual) ESR Westergren BUN 27 H Creatinine 1.32 H Lactic Acid Phosphorus Creatine Kinase Troponin I B-Natriuretic Peptide C-Reactive Protein 03/25/19 03/25/19 03/25/19 22:35 22:35 22:35 WBC Hgb Hct Neutrophils % Neutrophils % (Manual) ESR Westergren BUN Creatinine Lactic Acid 1.7 Phosphorus Creatine Kinase Troponin I 0.043 H B-Natriuretic Peptide 725.6 H C-Reactive Protein 03/26/19 03/26/19 03/26/19 02:12 03:52 03:52 WBC Hgb Hct Neutrophils % Neutrophils % (Manual) ESR Westergren BUN Creatinine 1.28 Lactic Acid Phosphorus Creatine Kinase Troponin I 0.026 0.050 H B-Natriuretic Peptide C-Reactive Protein 03/26/19 03/27/19 03/27/19 03:52 03:30 03:35 WBC 16.7 H 13.8 H Hgb 13.7 L Hct Neutrophils % 75.1 H Neutrophils % (Manual) 66 ESR Westergren BUN Creatinine 1.48 H Lactic Acid Phosphorus Creatine Kinase Troponin I B-Natriuretic Peptide C-Reactive Protein 03/27/19 03/27/19 03/28/19 03:35 03:35 04:48 WBC Hgb Hct Neutrophils % Neutrophils % (Manual) ESR Westergren 15 BUN Creatinine 2.61 H Lactic Acid Phosphorus 5.0 H Creatine Kinase Troponin I B-Natriuretic Peptide C-Reactive Protein 18.40 H 03/28/19 03/29/19 03/29/19 04:48 04:00 04:00 WBC 12.5 H 10.3 Hgb Hct Neutrophils % Neutrophils % (Manual) ESR Westergren BUN Creatinine 1.84 H Lactic Acid Phosphorus Creatine Kinase Troponin I B-Natriuretic Peptide C-Reactive Protein Hospitalist ROS - Medication Medications: Active Medications Generic Name Dose Route Start Last Admin Trade Name Freq PRN Reason Stop Dose Admin Acetaminophen/Codeine Phosphate 2 tab 03/30/19 10:26 03/30/19 10:41 Tylenol #3 PO 2 tab Q4H PRN Administration Moderate Pain (4-6) Bisacodyl 10 mg 03/26/19 02:07 03/29/19 20:25 Dulcolax PO 10 mg DAILYPRN PRN Administration Constipation Carvedilol 6.25 mg 03/26/19 09:00 03/30/19 15:08 Coreg PO Not Given TID FRANDY Clopidogrel Bisulfate 75 mg 03/26/19 09:00 03/30/19 08:41 Plavix PO 75 mg DAILY FRANDY Administration Diphenhydramine HCl 25 mg 03/26/19 17:43 03/30/19 12:46 Benadryl PO 25 mg Q6H PRN Administration Itching & Insomnia Famotidine 20 mg 03/26/19 09:00 03/30/19 08:41 Pepcid PO 20 mg DAILY FRANDY Administration Ceftriaxone Sodium 2 gm/ 100 mls @ 200 mls/hr 03/26/19 03:00 03/30/19 02:50 Sodium Chloride IVPB 100 mls Q24HR FRANDY Administration Lactated Ringer's 1,000 mls @ 50 mls/hr 03/30/19 08:33 03/30/19 08:46 Lactated Ringer's IV Not Given .Q20H FRANDY Isosorbide Mononitrate 15 mg 03/26/19 09:00 03/29/19 09:04 Imdur Er PO Not Given DAILY FRANDY Morphine Sulfate 4 mg 03/29/19 15:47 03/29/19 23:25 Morphine SLOW IVP 4 mg Q1H PRN Administration Severe Pain (7-10) Ondansetron HCl 4 mg 03/26/19 02:07 03/26/19 21:09 Zofran IVP 4 mg Q6H PRN Administration Nausea/Vomiting Sodium Chloride 10 ml 03/26/19 21:22 03/27/19 02:12 Flush - Normal Saline IVF 10 ml PRN PRN Administration Saline Flush - Exam General Appearance: NAD, awake alert Eye: PERRL, anicteric sclera ENT: normocephalic atraumatic, no oropharyngeal lesions Neck: supple, symmetric, no JVD, no thyromegaly Gastrointestinal: soft, non-tender, non-distended, normal bowel sounds, no palpable masses Extremities: no cyanosis, 1+ LE edema Skin: normal turgor Neurological: cranial nerve grossly intact, no new deficit Musculoskeletal: generalized weakness Psychiatric: A&O x 3 Hosp A/P (1) Septic arthritis of hip Code(s): M00.9 - PYOGENIC ARTHRITIS, UNSPECIFIED Status: Acute Plan: Streptococcus gordonii isolated, continue Rocephin, s/p R TKA POD #2, pain control (2) Acute metabolic encephalopathy Code(s): G93.41 - METABOLIC ENCEPHALOPATHY Status: Acute Plan: Likely multifactorial including septic hip, ICU delirium/intubation, check Ucx, Ativan 1mg IV q6h prn, consider sitter 1:1 (3) Community acquired bacterial pneumonia Code(s): J15.9 - UNSPECIFIED BACTERIAL PNEUMONIA Status: Acute Plan: Stable, continue Rocephin as outlined above (4) MATEUS (acute kidney injury) Code(s): N17.9 - ACUTE KIDNEY FAILURE, UNSPECIFIED Status: Acute Plan: Improved, continue IVF's, avoid nephrotoxic agents and limit contrast exposure (5) Chronic anticoagulation Code(s): Z79.01 - UMBRELLA MENDER (CURRENT) USE OF ANTICOAGULANTS Status: Acute Plan: Eliquis resumed (6) CKD (chronic kidney disease), stage III Code(s): N18.3 - CHRONIC KIDNEY DISEASE, STAGE 3 (MODERATE) Status: Chronic (7) Osteoarthritis Code(s): M19.90 - UNSPECIFIED OSTEOARTHRITIS, UNSPECIFIED SITE Status: Chronic - Plan continue antibiotics, PT/OT, social professionals, respiratory therapy, DVT proph w/ SCDs Stable currently Continue pain control, add Morphine Sulfate IV prn Ativan 1mg IV q6h prn agitation Orthopedics consult appreciated Continue Rocephin IVF with LR Eliquis restarted AM lab: BMP, CBC
[2019-03-30] MEDS ORDERED: Lorazepam 2 MG/ML VIAL SLOW IVP PRN (20:34)
[2019-03-30] MEDS: Apixaban 2.5 MG TAB PO SCH (20:51)
[2019-03-31] MEDS: cefTRIAXone\\ROCEPHIN 2 GM in Sodium Chloride 0.9% 100 ML IVPB SCH (02:13)
[2019-03-31] MEDS: Lactated Ringer's 1,000 ML IV SCH (02:14)
[2019-03-31 03:53] LABS: Bacteria/HPF 1+ HPF (None Seen); Bilirubin Negative (Negative); Blood, Urine 1+ (Negative); Clarity Turbid (Clear); Glucose, Urine (Dipstick) Normal (Negative); Leukocyte 75 Leu/uL (Negative); Nitrite Negative (Negative); Protein, Urine (Dipstick) 50 mg/dL (Neg-Trace); RBC/HPF 0-3 HPF (0-3); Squamous Epithelial 0-3 HPF (0-3); Urine Culture Reflex Yes Yes; Urobilinogen Normal mg/dL (Less than 2)
[2019-03-31 04:41] LABS: #Eosinphils 0.1 thou/uL (0.0-0.7); #Lymphocytes 1.3 thou/uL (1.20-3.40); #Neutrophils 5.1 thou/uL (1.40-6.50); %Basophils 0.5 % (0.0-1.0); %Eosinophils 1.4 % (0.0-10.0); %Lymphocytes 16.9 % (21.0-51.0); %Monocytes 13.6 % (0.0-10.0); %Neutrophils 67.6 % (42.0-75.0); Hemoglobin 10.4 g/dL (14.0-18.0); Mean Corpuscular HGB CONC 32.9 g/dL (32.0-36.0); Mean Corpuscular Hemoglobin 32.7 pg (27.0-31.0); Mean Corpuscular Volume 99.6 fL (78.0-98.0); Mean Platelet Volume 8.2 fL (7.4-10.4); Platelet Count 140 thou/uL (130-400); Red Blood Cell (RBC) Count 3.18 mill/uL (4.70-6.10); White Blood Cell (WBC) Count 7.6 thou/uL (4.8-10.8)
[2019-03-31 05:15] LABS: Anion Gap 9 mmol/L (10-20); BUN (Urea Nitrogen) 33 mg/dL (8.4-25.7); Calc. Creatinine Clearance 63 mL/min (70-130); Calcium 6.9 mg/dL (7.8-10.44); Carbon Dioxide 22 mmol/L (23-31); Chloride 114 mmol/L (98-107); Estimated GFR-MDRD 71; Glucose 76 mg/dL (83-110); Potassium 3.3 mmol/L (3.5-5.1); Sodium 142 mmol/L (136-145)
[2019-03-31] MEDS: Acetaminophen 325 MG TAB PO PRN ×2 (06:27→14:09)
[2019-03-31] MEDS: Carvedilol 6.25 MG TAB PO SCH ×4 (09:08→20:34)
[2019-03-31] MEDS: Famotidine 20 MG TAB PO SCH (09:08)
[2019-03-31] MEDS: Apixaban 2.5 MG TAB PO SCH ×3 (09:08→20:34)
[2019-03-31] MEDS: Isosorbide Mononitrate (ER) 30 MG TAB PO SCH (09:09)
[2019-03-31] MEDS: Clopidogrel Bisulfate 75 MG TAB PO SCH (09:10)
[2019-03-31] MEDS ORDERED: Carvedilol 6.25 MG TAB PO SCH (09:30)
[2019-03-31] MEDS ORDERED: Potassium Chloride 20 MEQ TAB PO SCH (09:30)
--- NOTE | 2019-03-31 09:38 | PRG ---
DATE OF SERVICE: 03/31/2019 SERVICE: Nephrology. SUBJECTIVE: An 83-year-old male being followed up for acute on chronic renal failure. The patient was admitted due to generalized body ache and found to have right septic prosthetic hip, status post revision and antibiotic spacer placement. Feeling better. The patient, however, is confused. He was agitated last night, requiring Ativan. Oral intake is still suboptimal. Denied shortness of breath, nausea, vomiting, or diarrhea. OBJECTIVE: VITAL SIGNS: Temperature 97.5, pulse 100, respiratory rate 16, SpO2 of 100% on 2 L nasal cannula, and blood pressure is 139/85. GENERAL: Elderly male, in no distress. HEENT: Normocephalic, atraumatic. Oral mucosa is dry. CARDIOVASCULAR: Irregular rhythm and rate with normal heart sounds. RESPIRATORY: Fair air entry bilaterally with few transmitted breath sounds. No crackle, rhonchi, or use of accessory muscles appreciated. GI: Full, soft, nontender, nondistended with normal bowel sounds. UROGENITAL: Velasquez catheter is in place. EXTREMITIES: Right hip surgical dressing noted. No edema appreciated. WELDING PROCESS SPECIALIST: Conscious, alert, and oriented to person and place. The patient, however, is confused. Thinks that water is tasting differently. However, very cooperative. DIAGNOSTIC DATA: CBC showed WBC count of 7.6, hemoglobin of 10.4, platelets of 140. BMP showed sodium 142, potassium 3.3, chloride 114, CO2 of 22, anion gap 9, BUN 33, creatinine 1.0, glucose 76, calcium 6.9. ASSESSMENT: 1. Acute kidney injury: Due to septic shock and volume depletion. Improved with IV fluid therapy. 2. Chronic kidney disease stage 3. 3. Septic shock: Resolved. 4. Volume depletion: Improved. 5. Septic right prosthetic hip status post revision. 6. Chronic systolic heart failure with ejection fraction of 20% to 25%. 7. Chronic debilitation. 8. Physical deconditioning. PLAN: 1. We will encourage liberal oral intake. Once oral intake is improved, we will discontinue IV fluid therapy. In the meantime, continue LR at 50 mL/h. 2. We will replete serum potassium and get magnesium level. 3. Decrease carvedilol to 3.125 from 6.25 due to low blood pressure. Also, hold isosorbide mononitrate due to low blood pressure. 4. Further treatment as per primary attending. Repeat renal function test in the morning. Job ID: [id number]
--- NOTE | 2019-03-31 10:16 | OP ---
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 PROCEDURES PERFORMED: Right total hip revision and right knee aspiration. WAGON DRIVER: Chapin Thomason PA-C BLOOD LOSS: About 300. SPECIMENS: None. His cultures were already been sent before high-dose antibiotics were started. DRAINS: None. COMPLICATIONS: None. DESCRIPTION OF PROCEDURE: The patient was taken to the operating room, where general anesthesia was induced. He was on Levophed because of hypotension associated with sepsis and in quite a bit of distress. The hip was prepped and draped in usual sterile fashion. I made a longitudinal incision to the old scar. Dissection was carried down to the IT band, which was divided distally, extended proximally. Anterior 1/3 of the abductors were taken off. Some of the abductors had a hole on it. There was quite a bit of purulent material in the side of the thigh. This was irrigated copiously. I exposed the joint, performed a synovectomy. This was an extensive synovectomy. I removed the head. There was some metallosis and debris, which was debrided as well. The stem was very well fixed. Due to this patient's hypotension and distress, I felt splitting the femur was not indicated at this time. The stem was checked and found to be stable. I did remove the acetabulum. This was easily done using an Innomed cup extractor. Pulsatile lavage irrigation was performed copiously throughout. Complete synovectomy was performed posterior to the head and neck as well. The new F-liner was roughened with a saw and then cemented with high-dose antibiotic cement and allowed to cure. I used a -440 femoral head. I used antibiotic cement on the femur as well. forehead gave good stability. Hip was reduced, checked to be stable throughout range of motion. The permanent implant was impacted into place. Additional irrigation was performed. The hip was reduced. Abduction was repaired with #2 Vicryl, IT band was repaired with #2 Vicryl and #2 Quill. Subcu was closed with 0 Quill. Skin was closed with 2-0 Prolene. Sterile dressings were applied. Job ID: [id number]
--- NOTE | 2019-03-31 16:05 | PRG ---
DATE OF SERVICE: 03/31/2019 SUBJECTIVE: Mr. Woods is transferred to the floor. He is sitting by the bedside, getting some physical therapy. He has a Velasquez catheter still in place. Has a PICC line. His ocular movements are conjugate. OBJECTIVE: LUNGS: With a few scattered crackles, which are not very prominent. No wheezing. HEART: S1 and S2. Regular rate. ABDOMEN: Soft. Not distended. Velasquez catheter in place. EXTREMITIES: A 2+ edema in lower extremities. LABORATORY DATA: White cell count is at 7.6, hemoglobin 10.4, and platelets 140. His creatinine is down to 1 and final cultures with Streptococcus gordonii with a broad susceptibility profile. ASSESSMENT AND DISCUSSION: Ischemic cardiomyopathy with mitral valve replacement, an AICD in place, asbestos exposure, distant right hip replacement, now with hematogenous streptococcus gordonii infection of right hip, negative blood cultures. The pain in the left lower quadrant that had been identified initially, now it does not seem to be present. The patient is a bit confused, so we are going to have to follow that. Initial finding, make sure that he does need an imaging study there to rule out inflammatory process that might have originated the bacteremia and seating of the right hip. Job ID: [id number]
--- NOTE | 2019-03-31 17:16 | PDOC.HOSPP ---
- Subjective Encounter Date: 03/31/19 Encounter Time: 17:20 Subjective: f/u for septic R hip s/p JUAN JOSÉ with revision POD #3 on current Rocephin IV. Feels better overall. Delirium noted last pm but improved this am. - Objective Vital Signs & Weight: Vital Signs (12 hours) Temp Pulse Resp BP BP Pulse Ox 03/31/19 16:30 97.5 F L 100 16 116/74 100 03/31/19 14:09 111/63 03/31/19 10:51 97.5 F L 100 16 111/63 100 03/31/19 10:06 139/85 03/31/19 09:08 139/85 03/31/19 08:00 100 03/31/19 07:47 97.5 F L 100 16 139/85 100 Weight Weight 178 lb Most Recent Monitor Data Heart Rate from ECG 93 NIBP 124/73 NIBP BP-Mean 90 Respiration from ECG 15 SpO2 99 I&O: 03/30/19 03/31/19 04/01/19 06:59 06:59 06:59 Intake Total 4431 1442 Output Total 1197 545 Balance 3234 897 Result Diagrams: 03/31/19 03:24 03/31/19 03:24 Additional Labs: Microbiology 03/27/19 10:51 Joint - Fluid Body Fluid Culture - Final Streptococcus gordonii 03/26/19 00:02 Nasal swab Influenza Types A,B Direct EIA - Final 03/25/19 22:58 Urine voided Urine Culture - Final NO GROWTH AT 36 HOURS 03/27/19 10:51 Joint - Fluid Body Fluid Culture - Preliminary 03/25/19 22:58 Urine voided Urine Culture - Preliminary NO GROWTH AT 12 HOURS 03/25/19 22:35 Venous blood - Left Arm Blood Culture - Preliminary Specimen has been received and culture in progress. No Growth to date. 03/25/19 22:35 Venous blood - Left Arm Blood Culture - Preliminary NO GROWTH AT 48 HOURS 03/25/19 22:30 Venous blood - Right Arm Blood Culture - Preliminary Specimen has been received and culture in progress. No Growth to date. 03/25/19 22:30 Venous blood - Right Arm Blood Culture - Preliminary NO GROWTH AT 48 HOURS Laboratory Tests 09/24/17 09/24/17 09/25/17 18:07 18:07 04:27 WBC Hgb Hct Neutrophils % Neutrophils % (Manual) ESR Westergren BUN Creatinine 1.51 H Lactic Acid Phosphorus Creatine Kinase 239 H Troponin I B-Natriuretic Peptide 1401.8 H 2121.0 H C-Reactive Protein 09/26/17 10/20/17 12/07/17 03:41 06:45 14:00 WBC Hgb Hct Neutrophils % Neutrophils % (Manual) ESR Westergren BUN Creatinine Lactic Acid Phosphorus Creatine Kinase Troponin I B-Natriuretic Peptide 2144.2 H 958.1 H 2088.1 H C-Reactive Protein 01/21/19 01/21/19 03/25/19 01:33 01:33 22:35 WBC 10.1 Hgb 13.6 L Hct 40.9 L Neutrophils % 73.7 Neutrophils % (Manual) ESR Westergren BUN 27 H Creatinine 1.32 H Lactic Acid Phosphorus Creatine Kinase Troponin I B-Natriuretic Peptide C-Reactive Protein 03/25/19 03/25/19 03/25/19 22:35 22:35 22:35 WBC Hgb Hct Neutrophils % Neutrophils % (Manual) ESR Westergren BUN Creatinine Lactic Acid 1.7 Phosphorus Creatine Kinase Troponin I 0.043 H B-Natriuretic Peptide 725.6 H C-Reactive Protein 03/26/19 03/26/19 03/26/19 02:12 03:52 03:52 WBC Hgb Hct Neutrophils % Neutrophils % (Manual) ESR Westergren BUN Creatinine 1.28 Lactic Acid Phosphorus Creatine Kinase Troponin I 0.026 0.050 H B-Natriuretic Peptide C-Reactive Protein 03/26/19 03/27/19 03/27/19 03:52 03:30 03:35 WBC 16.7 H 13.8 H Hgb 13.7 L Hct Neutrophils % 75.1 H Neutrophils % (Manual) 66 ESR Westergren BUN Creatinine 1.48 H Lactic Acid Phosphorus Creatine Kinase Troponin I B-Natriuretic Peptide C-Reactive Protein 03/27/19 03/27/19 03/28/19 03:35 03:35 04:48 WBC Hgb Hct Neutrophils % Neutrophils % (Manual) ESR Westergren 15 BUN Creatinine 2.61 H Lactic Acid Phosphorus 5.0 H Creatine Kinase Troponin I B-Natriuretic Peptide C-Reactive Protein 18.40 H 03/28/19 03/29/19 03/29/19 04:48 04:00 04:00 WBC 12.5 H 10.3 Hgb Hct Neutrophils % Neutrophils % (Manual) ESR Westergren BUN Creatinine 1.84 H Lactic Acid Phosphorus Creatine Kinase Troponin I B-Natriuretic Peptide C-Reactive Protein Hospitalist ROS - Medication Medications: Active Medications Generic Name Dose Route Start Last Admin Trade Name Freq PRN Reason Stop Dose Admin Acetaminophen 650 mg 03/26/19 02:07 03/31/19 14:09 Tylenol PO 650 mg Q4H PRN Administration Headache/Fever/Mild Pain (1-3) Acetaminophen/Codeine Phosphate 2 tab 03/30/19 10:26 03/30/19 10:41 Tylenol #3 PO 2 tab Q4H PRN Administration Moderate Pain (4-6) Apixaban 2.5 mg 03/30/19 21:00 03/31/19 09:08 Eliquis PO 2.5 mg BID FRANDY Administration Bisacodyl 10 mg 03/26/19 02:07 03/29/19 20:25 Dulcolax PO 10 mg DAILYPRN PRN Administration Constipation Carvedilol 3.125 mg 03/31/19 15:00 03/31/19 14:09 Coreg PO 3.125 mg TID FRANDY Administration Clopidogrel Bisulfate 75 mg 03/26/19 09:00 03/31/19 09:10 Plavix PO 75 mg DAILY FRANDY Administration Diphenhydramine HCl 25 mg 03/26/19 17:43 03/30/19 12:46 Benadryl PO 25 mg Q6H PRN Administration Itching & Insomnia Famotidine 20 mg 03/26/19 09:00 03/31/19 09:08 Pepcid PO 20 mg DAILY FRANDY Administration Ceftriaxone Sodium 2 gm/ 100 mls @ 200 mls/hr 03/26/19 03:00 03/31/19 02:13 Sodium Chloride IVPB 100 mls Q24HR FRANDY Administration Lorazepam 1 mg 03/30/19 20:34 03/30/19 20:57 Ativan SLOW IVP 1 mg Q6H PRN Administration Anxiety/Agitation Morphine Sulfate 4 mg 03/29/19 15:47 03/29/19 23:25 Morphine SLOW IVP 4 mg Q1H PRN Administration Severe Pain (7-10) Ondansetron HCl 4 mg 03/26/19 02:07 03/26/19 21:09 Zofran IVP 4 mg Q6H PRN Administration Nausea/Vomiting Sodium Chloride 10 ml 03/26/19 21:22 03/27/19 02:12 Flush - Normal Saline IVF 10 ml PRN PRN Administration Saline Flush - Exam General Appearance: NAD, awake alert Eye: PERRL, anicteric sclera ENT: normocephalic atraumatic, no oropharyngeal lesions Neck: supple, symmetric, no JVD, no thyromegaly Heart: RRR, no gallops, no rubs, normal peripheral pulses Respiratory: no rales Respiratory - other findings: diminished in bases Gastrointestinal: soft, non-tender, non-distended, normal bowel sounds, no palpable masses Extremities: no cyanosis, no clubbing Extremities - other findings: R hip with surgical dressing/edema Skin: normal turgor Neurological: cranial nerve grossly intact, no new deficit Musculoskeletal: normal tone, generalized weakness Psychiatric: normal affect, oriented to person, oriented to place Hosp A/P (1) Septic arthritis of hip Code(s): M00.9 - PYOGENIC ARTHRITIS, UNSPECIFIED Status: Acute Qualifiers: Septic arthritis organism: streptococcal Plan: s/p R THR with washout and revision POD #3, continue pain control, Rocephin IV with Steptococcus gordonii isolated (2) Acute metabolic encephalopathy Code(s): G93.41 - METABOLIC ENCEPHALOPATHY Status: Acute Plan: Improved, limit psychotropes and pain meds, serial monitoring (3) Community acquired bacterial pneumonia Code(s): J15.9 - UNSPECIFIED BACTERIAL PNEUMONIA Status: Acute Plan: Suspected, continue Rocephin, pulmonary support (4) MATEUS (acute kidney injury) Code(s): N17.9 - ACUTE KIDNEY FAILURE, UNSPECIFIED Status: Acute Plan: Resolving, avoid nephrotoxic meds and limit contrast (5) Chronic anticoagulation Code(s): Z79.01 - LONG-TERM (CURRENT) USE OF ANTICOAGULANTS Status: Chronic Plan: Continue Eliquis (6) CKD (chronic kidney disease), stage III Code(s): N18.3 - CHRONIC KIDNEY DISEASE, STAGE 3 (MODERATE) Status: Chronic (7) Osteoarthritis Code(s): M19.90 - UNSPECIFIED OSTEOARTHRITIS, UNSPECIFIED SITE Status: Chronic - Plan continue antibiotics, PT/OT, social media coordinator, respiratory therapy, out of bed/ ambulate, DVT proph w/SCDs Stable currently Continue pain control, add Morphine Sulfate IV prn Ativan 1mg IV q6h prn agitation Orthopedics consult appreciated Continue Rocephin IV Saline lock IVF's Eliquis restarted AM lab: BMP, H/H Inpt rehab/SNF options
[2019-03-31] MEDS ORDERED: Ziprasidone 20 MG VIAL IM PRN (19:55)
[2019-03-31] MEDS ORDERED: Sterile Water 10 ML VIAL FS PRN (20:10)
[2019-04-01] MEDS: cefTRIAXone\\ROCEPHIN 2 GM in Sodium Chloride 0.9% 100 ML IVPB SCH (03:36)
[2019-04-01 06:17] LABS: Albumin 2.3 g/dL (3.4-4.8); Anion Gap 6 mmol/L (10-20); BUN (Urea Nitrogen) 28 mg/dL (8.4-25.7); BUN/Creatinine Ratio 29.47; Calc. Creatinine Clearance 68 mL/min (70-130); Calcium 8.1 mg/dL (7.8-10.44); Carbon Dioxide 30 mmol/L (23-31); Chloride 111 mmol/L (98-107); Estimated GFR-MDRD 76; Glucose 107 mg/dL (83-110); Phosphorus 2.3 mg/dL (2.3-4.7); Potassium 4.1 mmol/L (3.5-5.1); Sodium 143 mmol/L (136-145)
[2019-04-01] MEDS: Carvedilol 6.25 MG TAB PO SCH ×4 (08:55→21:03)
[2019-04-01] MEDS: Famotidine 20 MG TAB PO SCH (08:56)
[2019-04-01] MEDS: Apixaban 2.5 MG TAB PO SCH ×3 (08:56→21:02)
[2019-04-01] MEDS: Clopidogrel Bisulfate 75 MG TAB PO SCH (08:56)
[2019-04-01] MEDS: Acetaminophen 325 MG TAB PO PRN ×2 (08:58→15:07)
[2019-04-01] MEDS ORDERED: Magnesium 2 GM/50 ML 2 GM in Premix Bag 1 BAG IVPB SCH (10:30)
[2019-04-01] MEDS ORDERED: Lactated Ringer's 1,000 ML IV SCH (10:45)
--- NOTE | 2019-04-01 11:07 | PRG ---
DATE OF SERVICE: 04/01/2019 SERVICE: Nephrology. SUBJECTIVE: An 83-year-old male admitted due to generalized body ache and right hip pain. Nephrology is following patient for acute on chronic renal failure. Hospital course was complicated by septic shock related to septic prosthetic right hip. The patient is status post surgery. Overnight, he got more confused and agitated requiring restraints. He is still confused, not talking much. Oral intake has been poor. No fever, nausea, vomiting, or change in bowel habit. OBJECTIVE: VITAL SIGNS: Temperature 98.4, pulse 97, respiratory rate 18, SpO2 of 96% on 3 L nasal cannula, and blood pressure is 171/103. GENERAL: Elderly, confused male, in no obvious distress. Afebrile. Anicteric. Acyanotic. HEENT: Normocephalic and atraumatic. Oral mucosa is dry. NECK: Supple. No JVD. CARDIOVASCULAR: Irregular rhythm and rate with normal heart sounds. RESPIRATORY: Fair air entry bilaterally with some transmitted breath sounds. No respiratory distress appreciated. GI: Full, soft, nontender, and nondistended with normal bowel sounds. EXTREMITIES: Right lateral hip dressing noted. Otherwise, extremities are grossly normal, atraumatic with no edema or erythema. UROGENITAL: Velasquez catheter is in place, draining urine. TANK CAR RECONDITIONER: Conscious and awake. Confused. Moves all extremities. DIAGNOSTIC DATA: Renal function panel showed sodium 143, potassium 4.1, chloride 111, CO2 of 30, BUN 28, creatinine 0.95, glucose 107, calcium 8.1, phosphorus 2.3, and albumin 2.3. Magnesium is 1.5. ASSESSMENT: 1. Acute kidney injury: Due to prerenal etiology related to volume depletion and use of diuretics and poor oral intake. Creatinine has improved to 0.95. The patient had acute hypotension from septic shock, also was contributory. With hemodynamics improvement, creatinine continued to trend downwards. 2. Hypomagnesemia. 3. Hyperchloremic acidosis: Improved. 4. Septic shock: Due to septic right hip. Status post surgery. Hemodynamics have improved. 5. Hypotension: Improved with IV fluid and holding of some antihypertensives. 6. Hypokalemia: Repleted. 7. Acute metabolic encephalopathy: Related to sepsis on hospital admission. 8. The patient may have some baseline dementia. 9. Right septic hip. PLAN: 1. Continue low-dose IV fluids due to poor oral intake. 2. Replete serum magnesium. 3. Continue antibiotic therapy, renally dosed. 4. Other treatment as per primary attending. The patient will need placement. We will sign off at this time as renal function has resolved, has improved to baseline. The patient; however, will need followup in 1 to 2 weeks post hospitalization. Please call for any clarification or question. Job ID: [id number]
--- NOTE | 2019-04-01 15:31 | PDOC.HOSPP ---
- Subjective Encounter Date: 04/01/19 Encounter Time: 15:20 Subjective: f/u septic R hip with strep gordonii on current Rocephin and s/p R JUAN JOSÉ with revision and washout. Feels ok overall. Still confused. - Objective Vital Signs & Weight: Vital Signs (12 hours) Temp Pulse Resp BP BP Pulse Ox 04/01/19 15:01 157/89 H 04/01/19 11:19 98.1 F 95 18 148/86 H 92 L 04/01/19 08:55 159/104 H 04/01/19 08:30 99 159/104 H 04/01/19 08:17 98.4 F 97 18 171/103 H 96 04/01/19 08:00 96 04/01/19 03:56 97.5 F L 97 18 160/94 H 96 Weight Weight 182 lb 11.2 oz Most Recent Monitor Data Heart Rate from ECG 93 NIBP 124/73 NIBP BP-Mean 90 Respiration from ECG 15 SpO2 99 I&O: 03/31/19 04/01/19 04/02/19 06:59 06:59 06:59 Intake Total 1442 1780 Output Total 545 1150 Balance 897 630 Result Diagrams: 03/31/19 03:24 04/01/19 05:22 Additional Labs: Microbiology 03/27/19 10:51 Joint - Fluid Body Fluid Culture - Final Streptococcus gordonii 03/26/19 00:02 Nasal swab Influenza Types A,B Direct EIA - Final 03/25/19 22:58 Urine voided Urine Culture - Final NO GROWTH AT 36 HOURS 03/31/19 03:53 Urine leon catheter Urine Culture - Preliminary NO GROWTH AT 24 HOURS 03/27/19 10:51 Joint - Fluid Body Fluid Culture - Preliminary 03/25/19 22:58 Urine voided Urine Culture - Preliminary NO GROWTH AT 12 HOURS 03/25/19 22:35 Venous blood - Left Arm Blood Culture - Preliminary Specimen has been received and culture in progress. No Growth to date. 03/25/19 22:35 Venous blood - Left Arm Blood Culture - Preliminary NO GROWTH AT 48 HOURS 03/25/19 22:30 Venous blood - Right Arm Blood Culture - Preliminary Specimen has been received and culture in progress. No Growth to date. 03/25/19 22:30 Venous blood - Right Arm Blood Culture - Preliminary NO GROWTH AT 48 HOURS Laboratory Tests 09/24/17 09/24/17 09/25/17 18:07 18:07 04:27 WBC Hgb Hct Neutrophils % Neutrophils % (Manual) ESR Westergren BUN Creatinine 1.51 H Lactic Acid Phosphorus Creatine Kinase 239 H Troponin I B-Natriuretic Peptide 1401.8 H 2121.0 H C-Reactive Protein 09/26/17 10/20/17 12/07/17 03:41 06:45 14:00 WBC Hgb Hct Neutrophils % Neutrophils % (Manual) ESR Westergren BUN Creatinine Lactic Acid Phosphorus Creatine Kinase Troponin I B-Natriuretic Peptide 2144.2 H 958.1 H 2088.1 H C-Reactive Protein 01/21/19 01/21/19 03/25/19 01:33 01:33 22:35 WBC 10.1 Hgb 13.6 L Hct 40.9 L Neutrophils % 73.7 Neutrophils % (Manual) ESR Westergren BUN 27 H Creatinine 1.32 H Lactic Acid Phosphorus Creatine Kinase Troponin I B-Natriuretic Peptide C-Reactive Protein 03/25/19 03/25/19 03/25/19 22:35 22:35 22:35 WBC Hgb Hct Neutrophils % Neutrophils % (Manual) ESR Westergren BUN Creatinine Lactic Acid 1.7 Phosphorus Creatine Kinase Troponin I 0.043 H B-Natriuretic Peptide 725.6 H C-Reactive Protein 03/26/19 03/26/19 03/26/19 02:12 03:52 03:52 WBC Hgb Hct Neutrophils % Neutrophils % (Manual) ESR Westergren BUN Creatinine 1.28 Lactic Acid Phosphorus Creatine Kinase Troponin I 0.026 0.050 H B-Natriuretic Peptide C-Reactive Protein 03/26/19 03/27/19 03/27/19 03:52 03:30 03:35 WBC 16.7 H 13.8 H Hgb 13.7 L Hct Neutrophils % 75.1 H Neutrophils % (Manual) 66 ESR Westergren BUN Creatinine 1.48 H Lactic Acid Phosphorus Creatine Kinase Troponin I B-Natriuretic Peptide C-Reactive Protein 03/27/19 03/27/19 03/28/19 03:35 03:35 04:48 WBC Hgb Hct Neutrophils % Neutrophils % (Manual) ESR Westergren 15 BUN Creatinine 2.61 H Lactic Acid Phosphorus 5.0 H Creatine Kinase Troponin I B-Natriuretic Peptide C-Reactive Protein 18.40 H 03/28/19 03/29/19 03/29/19 04:48 04:00 04:00 WBC 12.5 H 10.3 Hgb Hct Neutrophils % Neutrophils % (Manual) ESR Westergren BUN Creatinine 1.84 H Lactic Acid Phosphorus Creatine Kinase Troponin I B-Natriuretic Peptide C-Reactive Protein Hospitalist ROS - Medication Medications: Active Medications Generic Name Dose Route Start Last Admin Trade Name Freq PRN Reason Stop Dose Admin Acetaminophen 650 mg 03/26/19 02:07 04/01/19 15:07 Tylenol PO 650 mg Q4H PRN Administration Headache/Fever/Mild Pain (1-3) Acetaminophen/Codeine Phosphate 2 tab 03/30/19 10:26 03/30/19 10:41 Tylenol #3 PO 2 tab Q4H PRN Administration Moderate Pain (4-6) Apixaban 2.5 mg 03/30/19 21:00 04/01/19 08:56 Eliquis PO 2.5 mg BID FRANDY Administration Bisacodyl 10 mg 03/26/19 02:07 03/29/19 20:25 Dulcolax PO 10 mg DAILYPRN PRN Administration Constipation Carvedilol 3.125 mg 03/31/19 15:00 04/01/19 15:01 Coreg PO 3.125 mg TID FRANDY Administration Clopidogrel Bisulfate 75 mg 03/26/19 09:00 04/01/19 08:56 Plavix PO 75 mg DAILY FRANDY Administration Diphenhydramine HCl 25 mg 03/26/19 17:43 03/30/19 12:46 Benadryl PO 25 mg Q6H PRN Administration Itching & Insomnia Famotidine 20 mg 03/26/19 09:00 04/01/19 08:56 Pepcid PO 20 mg DAILY FRANDY Administration Ceftriaxone Sodium 2 gm/ 100 mls @ 200 mls/hr 03/26/19 03:00 04/01/19 03:36 Sodium Chloride IVPB 100 mls Q24HR FRANDY Administration Lactated Ringer's 1,000 mls @ 50 mls/hr 04/01/19 10:45 04/01/19 11:07 Lactated Ringer's IV 1,000 mls .Q20H FRANDY Administration Lorazepam 1 mg 03/30/19 20:34 03/30/19 20:57 Ativan SLOW IVP 1 mg Q6H PRN Administration Anxiety/Agitation Morphine Sulfate 4 mg 03/29/19 15:47 03/29/19 23:25 Morphine SLOW IVP 4 mg Q1H PRN Administration Severe Pain (7-10) Ondansetron HCl 4 mg 03/26/19 02:07 03/26/19 21:09 Zofran IVP 4 mg Q6H PRN Administration Nausea/Vomiting Sodium Chloride 10 ml 03/26/19 21:22 03/27/19 02:12 Flush - Normal Saline IVF 10 ml PRN PRN Administration Saline Flush Ziprasidone 10 mg 03/31/19 19:55 03/31/19 20:36 Geodon IM 04/01/19 19:56 10 mg ONE PRN Administration Agitation - Exam General - other findings: groggy, answers questions slowly ENT: normocephalic atraumatic, no oropharyngeal lesions Neck: supple, symmetric, no JVD, no thyromegaly Heart: RRR, no gallops, no rubs, normal peripheral pulses Respiratory: CTAB, no rales, wheezes Gastrointestinal: soft, non-tender, non-distended, normal bowel sounds, no palpable masses Extremities: no cyanosis Extremities - other findings: R hip with surgical dressing, mild edema Skin: normal turgor, no lesions Neurological: no new deficit Musculoskeletal: normal tone, generalized weakness Psychiatric: oriented to person, oriented to place, somnolent Hosp A/P (1) Septic arthritis of hip Code(s): M00.9 - PYOGENIC ARTHRITIS, UNSPECIFIED Status: Acute Qualifiers: Septic arthritis organism: streptococcal Plan: s/p JUAN JOSÉ POD #4 on current Rocephin IV for isolated strep gordonii spp, continue to monitor (2) Acute metabolic encephalopathy Code(s): G93.41 - METABOLIC ENCEPHALOPATHY Status: Acute Plan: Mild improvement, continue supportive mgmt, limit psychotropes and pain meds (3) Community acquired bacterial pneumonia Code(s): J15.9 - UNSPECIFIED BACTERIAL PNEUMONIA Status: Acute Plan: Suspected, continue Rocephin (4) MATEUS (acute kidney injury) Code(s): N17.9 - ACUTE KIDNEY FAILURE, UNSPECIFIED Status: Acute Plan: Resolving, decrease IVF 30ml/h (5) Chronic anticoagulation Code(s): Z79.01 - HALF-WAY (CURRENT) USE OF ANTICOAGULANTS Status: Chronic (6) CKD (chronic kidney disease), stage III Code(s): N18.3 - CHRONIC KIDNEY DISEASE, STAGE 3 (MODERATE) Status: Chronic (7) Osteoarthritis Code(s): M19.90 - UNSPECIFIED OSTEOARTHRITIS, UNSPECIFIED SITE Status: Chronic - Plan continue antibiotics, PT/OT, social media intern, respiratory therapy, DVT proph w/ SCDs Stable currently Continue pain control but titrate to lowest effective dose Change Ativan 1mg IV q8h prn agitation Orthopedics consult appreciated Continue Rocephin IV Decrease IVF's Eliquis restarted AM lab: BMP, H/H Inpt rehab/SNF options
[2019-04-01] MEDS ORDERED: Lorazepam 2 MG/ML VIAL SLOW IVP PRN (15:34)
[2019-04-01] MEDS: Lactated Ringer's 1,000 ML IV SCH (15:52)
[2019-04-01] MEDS: Morphine 4 MG/ML VIAL SLOW IVP PRN (20:59)
[2019-04-02] MEDS: Morphine 4 MG/ML VIAL SLOW IVP PRN ×2 (03:34→13:58)
[2019-04-02] MEDS: cefTRIAXone\\ROCEPHIN 2 GM in Sodium Chloride 0.9% 100 ML IVPB SCH (03:35)
[2019-04-02 04:33] LABS: Hemoglobin 10.6 g/dL (14.0-18.0); Platelet Count 242 thou/uL (130-400)
[2019-04-02] MEDS: Carvedilol 6.25 MG TAB PO SCH ×3 (09:08→20:16)
[2019-04-02] MEDS: Famotidine 20 MG TAB PO SCH (09:09)
[2019-04-02] MEDS: Apixaban 2.5 MG TAB PO SCH ×2 (09:09→20:16)
[2019-04-02] MEDS: Clopidogrel Bisulfate 75 MG TAB PO SCH (09:09)
--- NOTE | 2019-04-02 13:10 | PDOC.HOSPP ---
- Subjective Encounter Date: 04/02/19 Encounter Time: 13:10 Subjective: f/u for septic R hip s/p JUAN JOSÉ with revision and washout POD #5 on Rocephin. - Objective Vital Signs & Weight: Vital Signs (12 hours) Temp Pulse Resp BP BP Pulse Ox 04/02/19 11:53 97.9 F 100 18 151/92 H 96 04/02/19 09:08 147/96 H 04/02/19 08:13 98 F 100 18 147/96 H 96 04/02/19 03:46 97.7 F 100 18 96 04/02/19 03:45 150/94 H Weight Weight 189 lb 4.8 oz Most Recent Monitor Data Heart Rate from ECG 93 NIBP 124/73 NIBP BP-Mean 90 Respiration from ECG 15 SpO2 99 I&O: 04/01/19 04/02/19 04/03/19 06:59 06:59 06:59 Intake Total 1780 1440 Output Total 1150 950 Balance 630 490 Result Diagrams: 04/02/19 04:15 04/02/19 04:15 Additional Labs: Microbiology 03/27/19 10:51 Joint - Fluid Body Fluid Culture - Final Streptococcus gordonii 03/26/19 00:02 Nasal swab Influenza Types A,B Direct EIA - Final 03/25/19 22:58 Urine voided Urine Culture - Final NO GROWTH AT 36 HOURS 03/25/19 22:35 Venous blood - Left Arm Blood Culture - Final NO GROWTH IN 5 DAYS 03/25/19 22:30 Venous blood - Right Arm Blood Culture - Final NO GROWTH IN 5 DAYS 03/31/19 03:53 Urine leon catheter Urine Culture - Preliminary NO GROWTH AT 24 HOURS Laboratory Tests 03/28/19 03/29/19 03/29/19 04:48 04:00 04:00 WBC 12.5 H 10.3 Hgb 12.9 L 10.3 L Creatinine 1.84 H 03/30/19 03/30/19 03/31/19 03:07 03:07 03:24 WBC 7.5 Hgb 9.7 L Creatinine 1.27 1.00 03/31/19 04/01/19 03:24 05:22 WBC 7.6 Hgb 10.4 L Creatinine 0.95 Hospitalist ROS - Medication Medications: Active Medications Generic Name Dose Route Start Last Admin Trade Name Freq PRN Reason Stop Dose Admin Acetaminophen 650 mg 12/18/19 02:07 04/01/19 15:07 Tylenol PO 650 mg Q4H PRN Administration Headache/Fever/Mild Pain (1-3) Acetaminophen/Codeine Phosphate 2 tab 03/30/19 10:26 03/30/19 10:41 Tylenol #3 PO 2 tab Q4H PRN Administration Moderate Pain (4-6) Apixaban 2.5 mg 03/30/19 21:00 04/02/19 09:09 Eliquis PO 2.5 mg BID FRANDY Administration Bisacodyl 10 mg 03/26/19 02:07 03/29/19 20:25 Dulcolax PO 10 mg DAILYPRN PRN Administration Constipation Carvedilol 3.125 mg 03/31/19 15:00 04/02/19 09:08 Coreg PO 3.125 mg TID FRANDY Administration Clopidogrel Bisulfate 75 mg 03/26/19 09:00 04/02/19 09:09 Plavix PO 75 mg DAILY FRANDY Administration Diphenhydramine HCl 25 mg 03/26/19 17:43 03/30/19 12:46 Benadryl PO 25 mg Q6H PRN Administration Itching & Insomnia Famotidine 20 mg 03/26/19 09:00 04/02/19 09:09 Pepcid PO 20 mg DAILY FRANDY Administration Ceftriaxone Sodium 2 gm/ 100 mls @ 200 mls/hr 03/26/19 03:00 04/02/19 03:35 Sodium Chloride IVPB 100 mls Q24HR FRANDY Administration Lactated Ringer's 1,000 mls @ 30 mls/hr 04/01/19 15:34 04/01/19 15:52 Lactated Ringer's IV Not Given .Q24H FRANDY Lorazepam 1 mg 04/01/19 15:34 04/01/19 20:48 Ativan SLOW IVP 1 mg Q8H PRN Administration Anxiety/Agitation Morphine Sulfate 4 mg 03/29/19 15:47 04/02/19 03:34 Morphine SLOW IVP 4 mg Q1H PRN Administration Severe Pain (7-10) Ondansetron HCl 4 mg 03/26/19 02:07 03/26/19 21:09 Zofran IVP 4 mg Q6H PRN Administration Nausea/Vomiting Sodium Chloride 10 ml 03/26/19 21:22 03/27/19 02:12 Flush - Normal Saline IVF 10 ml PRN PRN Administration Saline Flush - Exam General - other findings: confused, rambling speech Eye: PERRL, anicteric sclera ENT: normocephalic atraumatic, no oropharyngeal lesions Neck: supple, symmetric, no JVD, no thyromegaly Heart: RRR, no gallops, no rubs, normal peripheral pulses Respiratory: no rales, normal chest expansion Respiratory - other findings: diminished in bases Gastrointestinal: soft, non-tender, non-distended, normal bowel sounds, no palpable masses Extremities - other findings: R hip with surgical dressing in place Skin: normal turgor Musculoskeletal: generalized weakness Psychiatric: oriented to person, somnolent, lethargic Hosp A/P (1) Septic arthritis of hip Code(s): M00.9 - PYOGENIC ARTHRITIS, UNSPECIFIED Status: Acute Qualifiers: Septic arthritis organism: streptococcal Plan: s/p JUAN JOSÉ with revision and washout POD #5, continue Rocephin IV (2) Acute metabolic encephalopathy Code(s): G93.41 - METABOLIC ENCEPHALOPATHY Status: Acute Plan: Persistent, limit psychotropes and sedation/narcotics, re-orientation techniques , family at bedside (3) MATEUS (acute kidney injury) Code(s): N17.9 - ACUTE KIDNEY FAILURE, UNSPECIFIED Status: Acute Plan: Resolved (4) Chronic anticoagulation Code(s): Z79.01 - PUBLIC RELATIONS MANAGER (CURRENT) USE OF ANTICOAGULANTS Status: Chronic Plan: Continue Eliquis 2.5mg BID (5) CKD (chronic kidney disease), stage III Code(s): N18.3 - CHRONIC KIDNEY DISEASE, STAGE 3 (MODERATE) Status: Chronic (6) Osteoarthritis Code(s): M19.90 - UNSPECIFIED OSTEOARTHRITIS, UNSPECIFIED SITE Status: Chronic (7) Community acquired bacterial pneumonia Code(s): J15.9 - UNSPECIFIED BACTERIAL PNEUMONIA Status: Acute - Plan plan discussed w/ family, continue antibiotics, PT/OT, social and political studies professor, DVT proph w/SCDs Stable currently Continue pain control but titrate to lowest effective dose D/C Ativan Orthopedics consult appreciated Continue Rocephin IV Decrease IVF's Eliquis restarted AM lab: BMP, H/H Inpt rehab/SNF options
[2019-04-02] MEDS ORDERED: Lorazepam 2 MG/ML VIAL SLOW IVP PRN (13:28)
[2019-04-02] MEDS: Acetaminophen/Codeine 30-300mg Tablet PO PRN (18:10)
[2019-04-02] MEDS: Lactated Ringer's 1,000 ML IV SCH (18:14)
[2019-04-02] MEDS: diphenhydrAMINE 25 MG CAP PO PRN (20:16)
[2019-04-03] MEDS: cefTRIAXone\\ROCEPHIN 2 GM in Sodium Chloride 0.9% 100 ML IVPB SCH (03:43)
[2019-04-03] MEDS: Acetaminophen/Codeine 30-300mg Tablet PO PRN (03:43)
[2019-04-03] MEDS: Acetaminophen 325 MG TAB PO PRN (09:20)
[2019-04-03] MEDS: Famotidine 20 MG TAB PO SCH (09:21)
[2019-04-03] MEDS: Clopidogrel Bisulfate 75 MG TAB PO SCH (09:21)
[2019-04-03] MEDS: Carvedilol 6.25 MG TAB PO SCH ×3 (09:21→20:27)
[2019-04-03] MEDS: Apixaban 2.5 MG TAB PO SCH ×2 (10:01→20:29)
--- NOTE | 2019-04-03 13:07 | PDOC.HOSPP ---
- Subjective Encounter Date: 04/03/19 Encounter Time: 12:50 Subjective: f/u for AMS post op after R JUAN JOSÉ with revision/washout and isolation of strep gordonii spp tx with Rocephin. Slight improvement in confusion per . Stood at EOB with PT. - Objective Vital Signs & Weight: Vital Signs (12 hours) Temp Pulse Resp BP Pulse Ox 04/03/19 07:44 98.7 F 96 18 139/90 94 L 04/03/19 04:17 90 16 146/88 H 94 L Weight Admit Weight 165 lb 11.2 oz Weight 186 lb Most Recent Monitor Data Heart Rate from ECG 93 NIBP 124/73 NIBP BP-Mean 90 Respiration from ECG 15 SpO2 99 I&O: 04/02/19 04/03/19 04/04/19 06:59 06:59 06:59 Intake Total 1440 Output Total 950 750 Balance 490 -750 Result Diagrams: 04/02/19 04:15 04/02/19 04:15 Additional Labs: Microbiology 03/27/19 10:51 Joint - Fluid Body Fluid Culture - Final Streptococcus gordonii 03/26/19 00:02 Nasal swab Influenza Types A,B Direct EIA - Final 03/25/19 22:58 Urine voided Urine Culture - Final NO GROWTH AT 36 HOURS 03/25/19 22:35 Venous blood - Left Arm Blood Culture - Final NO GROWTH IN 5 DAYS 03/25/19 22:30 Venous blood - Right Arm Blood Culture - Final NO GROWTH IN 5 DAYS 03/31/19 03:53 Urine leon catheter Urine Culture - Preliminary NO GROWTH AT 24 HOURS Laboratory Tests 03/28/19 03/29/19 03/29/19 04:48 04:00 04:00 WBC 12.5 H 10.3 Hgb 12.9 L 10.3 L Creatinine 1.84 H 03/30/19 03/30/19 03/31/19 03:07 03:07 03:24 WBC 7.5 Hgb 9.7 L Creatinine 1.27 1.00 03/31/19 04/01/19 03:24 05:22 WBC 7.6 Hgb 10.4 L Creatinine 0.95 Hospitalist ROS - Medication Medications: Active Medications Generic Name Dose Route Start Last Admin Trade Name Freq PRN Reason Stop Dose Admin Acetaminophen 650 mg 03/26/19 02:07 04/03/19 09:20 Tylenol PO 650 mg Q4H PRN Administration Headache/Fever/Mild Pain (1-3) Acetaminophen/Codeine Phosphate 2 tab 03/30/19 10:26 04/03/19 03:43 Tylenol #3 PO 2 tab Q4H PRN Administration Moderate Pain (4-6) Apixaban 2.5 mg 03/30/19 21:00 04/03/19 10:01 Eliquis PO 2.5 mg BID FRANDY Administration Bisacodyl 10 mg 03/26/19 02:07 03/29/19 20:25 Dulcolax PO 10 mg DAILYPRN PRN Administration Constipation Carvedilol 3.125 mg 03/31/19 15:00 04/03/19 09:21 Coreg PO 3.125 mg TID FRANDY Administration Clopidogrel Bisulfate 75 mg 03/26/19 09:00 04/03/19 09:21 Plavix PO 75 mg DAILY FRANDY Administration Diphenhydramine HCl 25 mg 03/26/19 17:43 04/02/19 20:16 Benadryl PO 25 mg Q6H PRN Administration Itching & Insomnia Famotidine 20 mg 03/26/19 09:00 04/03/19 09:21 Pepcid PO 20 mg DAILY FRANDY Administration Ceftriaxone Sodium 2 gm/ 100 mls @ 200 mls/hr 03/26/19 03:00 04/03/19 03:43 Sodium Chloride IVPB 100 mls Q24HR FRANDY Administration Lactated Ringer's 1,000 mls @ 30 mls/hr 04/01/19 15:34 04/02/19 18:14 Lactated Ringer's IV 1,000 mls .Q24H FRANDY Administration Morphine Sulfate 4 mg 03/29/19 15:47 04/02/19 13:58 Morphine SLOW IVP 4 mg Q1H PRN Administration Severe Pain (7-10) Ondansetron HCl 4 mg 03/26/19 02:07 03/26/19 21:09 Zofran IVP 4 mg Q6H PRN Administration Nausea/Vomiting Sodium Chloride 10 ml 03/26/19 21:22 03/27/19 02:12 Flush - Normal Saline IVF 10 ml PRN PRN Administration Saline Flush - Exam General Appearance: NAD, awake alert Eye: PERRL, anicteric sclera ENT: normocephalic atraumatic, no oropharyngeal lesions Neck: supple, symmetric, no JVD, no thyromegaly Heart: RRR, no gallops, no rubs, normal peripheral pulses Respiratory: CTAB, no wheezes, no rales, no ronchi Gastrointestinal: soft, non-tender, non-distended, normal bowel sounds Extremities: no cyanosis Extremities - other findings: + edema of R hip region, post-surgical dressing in place Skin: normal turgor Neurological: no new deficit Musculoskeletal: normal tone, generalized weakness Psychiatric: oriented to person, oriented to place Hosp A/P (1) Septic arthritis of hip Code(s): M00.9 - PYOGENIC ARTHRITIS, UNSPECIFIED Status: Acute Qualifiers: Septic arthritis organism: streptococcal Plan: POD #6 with JUAN JOSÉ/revision and washout, continue Rocephin (2) Acute metabolic encephalopathy Code(s): G93.41 - METABOLIC ENCEPHALOPATHY Status: Acute Plan: Multifactorial including polypharmacy, limit psychotropes/sedation/pain meds, OOB/reorientation techniques (3) MATEUS (acute kidney injury) Code(s): N17.9 - ACUTE KIDNEY FAILURE, UNSPECIFIED Status: Acute Plan: Resolved, continue IVF's (4) Chronic anticoagulation Code(s): Z79.01 - FDC (CURRENT) USE OF ANTICOAGULANTS Status: Chronic Plan: Continue Eliquis 2.5mg BID (5) CKD (chronic kidney disease), stage III Code(s): N18.3 - CHRONIC KIDNEY DISEASE, STAGE 3 (MODERATE) Status: Chronic (6) Osteoarthritis Code(s): M19.90 - UNSPECIFIED OSTEOARTHRITIS, UNSPECIFIED SITE Status: Chronic (7) Community acquired bacterial pneumonia Code(s): J15.9 - UNSPECIFIED BACTERIAL PNEUMONIA Status: Acute Plan: Suspected, continue Rocephin - Plan plan discussed w/ family, continue antibiotics, PT/OT, oncology social worker, respiratory therapy, out of bed/ambulate, DVT proph w/SCDs Stable currently Continue pain control but titrate to lowest effective dose D/C Ativan Continue Rocephin IV Continue IVF's Eliquis restarted AM lab: BMP, H/H Inpt rehab option pending Likely can transition to inpt rehab in 24h
[2019-04-03] MEDS: Lactated Ringer's 1,000 ML IV SCH (16:37)
[2019-04-04] MEDS: cefTRIAXone\\ROCEPHIN 2 GM in Sodium Chloride 0.9% 100 ML IVPB SCH (02:10)
[2019-04-04] MEDS: Acetaminophen/Codeine 30-300mg Tablet PO PRN (04:20)
[2019-04-04] MEDS: Lactated Ringer's 1,000 ML IV SCH ×2 (04:21→08:03)
[2019-04-04] MEDS: Famotidine 20 MG TAB PO SCH (07:57)
[2019-04-04] MEDS: Apixaban 2.5 MG TAB PO SCH ×2 (07:58→20:52)
[2019-04-04] MEDS: Clopidogrel Bisulfate 75 MG TAB PO SCH (07:58)
[2019-04-04] MEDS: Carvedilol 6.25 MG TAB PO SCH ×3 (07:58→20:52)
--- NOTE | 2019-04-04 09:01 | PRG ---
DATE OF SERVICE: 04/04/2019 SUBJECTIVE: Sree is now postop day #7 for his right hip incision, drainage, washout, exploration, and revision (acetabular cup arthroplasty for streptococcal infection). He has been confused for the last few days, but pleasantly so he is not combative. PHYSICAL EXAMINATION: VITAL SIGNS: Temperature 97.8, pulse 100, respiratory rate 20 and nonlabored, and blood pressure is 167/97. GENERAL: He is alert and oriented x1. He responds to examiner appropriately and is pleasant to talk to, but he has no recollection of why he is in the hospital or where he is. MUSCULOSKELETAL: Incisions, there is no strike-through. No active drainage. He is neurovascularly intact in the right lower extremity. There is no shortening or malrotation. LABORATORY DATA: Hemoglobin and hematocrit 10.6 and 31.8 on April 02, 2019. IMPRESSION: 1. An 83-year-old male, postop day #7, right hip incision, drainage, washout, revision arthroplasty for infection. 2. Streptococcal pyogenic arthritis, right hip. 3. Confusion. PLAN: Placement will be determined probably this week. Continue current care. Job ID: [id number]
--- NOTE | 2019-04-04 12:04 | PDOC.HOSPP ---
- Subjective Encounter Date: 04/04/19 Encounter Time: 08:55 Subjective: Expresses no complaint.. +Sleepiness - Objective Vital Signs & Weight: Vital Signs (12 hours) Temp Pulse Resp BP Pulse Ox 04/04/19 11:59 97.8 F 108 H 20 133/69 92 L 04/04/19 08:10 98.4 F 76 20 151/87 H 93 L 04/04/19 02:19 97.8 F 100 20 167/97 H 91 L Weight Admit Weight 165 lb 11.2 oz Weight 184 lb 1.799 oz Most Recent Monitor Data Heart Rate from ECG 93 NIBP 124/73 NIBP BP-Mean 90 Respiration from ECG 15 SpO2 99 I&O: 04/03/19 04/04/19 04/05/19 06:59 06:59 06:59 Intake Total 2390 Output Total 750 950 Balance -750 1440 Result Diagrams: 04/02/19 04:15 04/02/19 04:15 Hospitalist ROS - Medication Medications: Active Medications Generic Name Dose Route Start Last Admin Trade Name Freq PRN Reason Stop Dose Admin Acetaminophen 650 mg 03/26/19 02:07 04/03/19 09:20 Tylenol PO 650 mg Q4H PRN Administration Headache/Fever/Mild Pain (1-3) Acetaminophen/Codeine Phosphate 2 tab 03/30/19 10:26 04/04/19 04:20 Tylenol #3 PO 2 tab Q4H PRN Administration Moderate Pain (4-6) Apixaban 2.5 mg 03/30/19 21:00 04/04/19 07:58 Eliquis PO 2.5 mg BID FRANDY Administration Bisacodyl 10 mg 03/26/19 02:07 03/29/19 20:25 Dulcolax PO 10 mg DAILYPRN PRN Administration Constipation Carvedilol 3.125 mg 03/31/19 15:00 04/04/19 07:58 Coreg PO 3.125 mg TID FRANDY Administration Clopidogrel Bisulfate 75 mg 03/26/19 09:00 04/04/19 07:58 Plavix PO 75 mg DAILY FRANDY Administration Diphenhydramine HCl 25 mg 03/26/19 17:43 04/02/19 20:16 Benadryl PO 25 mg Q6H PRN Administration Itching & Insomnia Famotidine 20 mg 03/26/19 09:00 04/04/19 07:57 Pepcid PO 20 mg DAILY FRANDY Administration Ceftriaxone Sodium 2 gm/ 100 mls @ 200 mls/hr 03/26/19 03:00 04/04/19 02:10 Sodium Chloride IVPB 100 mls Q24HR FRANDY Administration Lactated Ringer's 1,000 mls @ 75 mls/hr 04/03/19 13:10 04/04/19 08:03 Lactated Ringer's IV 1,000 mls .[id number] FRANDY Administration Morphine Sulfate 4 mg 03/29/19 15:47 04/02/19 13:58 Morphine SLOW IVP 4 mg Q1H PRN Administration Severe Pain (7-10) Ondansetron HCl 4 mg 03/26/19 02:07 03/26/19 21:09 Zofran IVP 4 mg Q6H PRN Administration Nausea/Vomiting Sodium Chloride 10 ml 03/26/19 21:22 03/27/19 02:12 Flush - Normal Saline IVF 10 ml PRN PRN Administration Saline Flush - Exam General Appearance: NAD Neck: no JVD Heart: RRR Respiratory: CTAB Gastrointestinal: soft Extremities: no edema Neurological: no weakness Psychiatric: normal affect Hosp A/P (1) Acute metabolic encephalopathy Code(s): G93.41 - METABOLIC ENCEPHALOPATHY Status: Acute (2) Pneumonia Code(s): J18.9 - PNEUMONIA, UNSPECIFIED ORGANISM Status: Acute (3) Septic arthritis of hip Code(s): M00.9 - PYOGENIC ARTHRITIS, UNSPECIFIED Status: Acute Qualifiers: Septic arthritis organism: streptococcal (4) Osteoarthritis Code(s): M19.90 - UNSPECIFIED OSTEOARTHRITIS, UNSPECIFIED SITE Status: Chronic (5) MATEUS (acute kidney injury) Code(s): N17.9 - ACUTE KIDNEY FAILURE, UNSPECIFIED Status: Acute Plan: Resolved.. (6) Chronic anticoagulation Code(s): Z79.01 - RETIREMENT (CURRENT) USE OF ANTICOAGULANTS Status: Chronic - Plan Continue current therapy.. For inpatient rehab..
[2019-04-04 13:22] VITALS: BMI 28.8
[2019-04-05] MEDS: cefTRIAXone\\ROCEPHIN 2 GM in Sodium Chloride 0.9% 100 ML IVPB SCH (03:12)
[2019-04-05 07:54] LABS: Hemoglobin 10.6 g/dL (14.0-18.0); Platelet Count 333 thou/uL (130-400)
[2019-04-05] MEDS: Clopidogrel Bisulfate 75 MG TAB PO SCH (09:19)
[2019-04-05] MEDS: Carvedilol 6.25 MG TAB PO SCH (09:19)
[2019-04-05] MEDS: Famotidine 20 MG TAB PO SCH (09:19)
[2019-04-05 09:23] VITALS: BP 145/92
[2019-04-05] MEDS: Morphine 4 MG/ML VIAL SLOW IVP PRN (09:46)
[2019-04-05] MEDS: Apixaban 2.5 MG TAB PO SCH (09:47)
[2019-04-05] MEDS: Lactated Ringer's 1,000 ML IV SCH (10:13)
[2019-04-05 11:47] VITALS: TEMP 98.2
--- NOTE | 2019-04-05 16:23 | PRG ---
DATE OF SERVICE: 04/05/2019 SUBJECTIVE: Sitting up in bed and eating lunch. Oriented x3. Still with moderate pain in the right hip surgical site. No headaches. No shortness of breath. No abdominal pain. Urinary catheter has been removed this morning. OBJECTIVE: VITAL SIGNS: With a T-max 98.2, blood pressure 150/77, pulse 95, respirations 20, O2 saturation 93% to 98% on 3 L nasal cannula. SKIN: The right hip site with usual appearance. The patient has a PICC line inserted. HEENT: Ocular movements are conjugate. Pupils are constricted. Oral cavity with numerous missing teeth. NECK: Supple. LUNGS: Symmetric, clear breath sounds. HEART: S1 and S2. Regular rate. ABDOMEN: Soft. Not distended or tender. No bladder distention. MUSCULOSKELETAL: Multiple areas of osteoarthrosis noted. Pulses are 1+ in dorsalis pedis. LABORATORY DATA: White cell count 7.6 from the 23, hemoglobin 10.4, platelets 140. Creatinine 0.93. Microbiology with Streptococcus gordonii as noted. Blood cultures, no growth. 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 The patient has a PICC line, and we will go ahead and place orders for long-term treatment, the end date will be May 09. After that, then transition to oral suppressive therapy with Keflex. There is no evidence of colonization of the devices at this point in time. Job ID: [id number]
--- NOTE | 2019-04-06 05:52 | DIS ---
DATE OF ADMISSION: 03/26/2019 DATE OF DISCHARGE: 04/05/2019 ADMITTING DIAGNOSES: 1. Right middle lobe pneumonia. 2. Atrial fibrillation. 3. Mild elevation of troponin. 4. Osteoarthritis. 5. Atypical chest pain. 6. Chronic kidney disease. 7. Hypertension. DISCHARGE DIAGNOSES: 1. Right middle lobe pneumonia. 2. Atrial fibrillation. 3. Mild elevation of troponin. 4. Osteoarthritis. 5. Atypical chest pain. 6. Chronic kidney disease. 7. Hypertension. 8. Septic arthritis of the hip. 9. Acute kidney injury. TROUBLE DISPATCHER: 1. Dr. Ruiz. 2. Dr. Quintana. 3. Dr. Douglas. PROCEDURES: 1. CT angiogram of the chest. 2. Chest x-ray. 3. Hip x-ray. 4. Hip aspiration. 5. IV administration of antibiotics. 6. Right total hip revision. 7. Right knee aspiration. COURSE OF HOSPITALIZATION: Uncomplicated, responded well to management. The patient is clinically stable at this time, being discharged to rehab. DISCHARGE MEDICATION: For discharge medications, please see discharge medication reconciliation sheet. The patient is to follow up with the consultants and also with his primary care physician. PHYSICAL EXAMINATION: GENERAL: Today, the patient is alert, oriented, in no distress. VITAL SIGNS: His latest vital signs show a temperature of 98.2, pulse rate 95, respiratory rate 20, blood pressure 145/92. HEAD AND NECK: Normal. HEART: He has regular S1 and S2. LUNGS: Clear. ABDOMEN: Benign. EXTREMITIES: Limbs show no edema. NEUROLOGIC: He moves all extremities. LABORATORY DATA: Today's labs were reviewed. Hemoglobin is 10.6, hematocrit 33.0. FOLLOWUP: As mentioned earlier, the patient is to follow up with the consultants and his primary care physician. DISCHARGE TIME: 32 minutes. Job ID: [id number] MTDD
--- NOTE | 2019-04-06 19:53 | PQF ---
JAYLEN MADSEN CYPRIEN [id number] SURG B- [id number] CLINICAL DOCUMENTATION CLARIFICATION FORM: POST DISCHARGE Addendum to original discharge summary date: ____ Late entry note date: __ DATE: 04/06/19 ATTN: Demetrius Yo Please exercise your independent, professional judgment in responding to the clarification form. Clinical indicators are provided on the bottom of this form for your review Please check appropriate box(es): [ x ] Sepsis due to Joint Prosthesis Infection [ ] Sepsis due to hematogenous streptococcus gordonii infection of right hip [ ] Sepsis due to Pneumonia [ ] Other diagnosis [ ] Unable to determine In addition, please specify: Present on Admission (POA): [ ] Yes [ ] No [ ] Unable to determine For continuity of documentation, please document condition throughout progress notes and discharge summary. Thank You. CLINICAL INDICATORS - SIGNS / SYMPTOMS / LABS H&P p1 03/26 Dr Rose presented today because of Right hip pain H&P p1 03/26 Dr Rose He admits worsening pain symptoms with associated myalgia since the last 3 days H&P p1 03/26 Dr Rose He has also been having intermittent substernal chest pain H&P p1 03/26 Dr Rose In the ED, his O2 saturation was low to 83% on room air Consult p2 03/26 Subacute right hip pain with accompanying fevers and pneumonia Consult p2 03/26 High lever of concern for periprosthetic septic arthritis PN p2 03/31 Right hip replacement. Now with hematogenous streptococcus gordonii infection of right hip RISK FACTORS H&P p1 03/26 83-year-old Male H&P p1 03/26 History of Right hip replacement H&P p2 03/26 Right middle lobe pneumonia H&P p2 03/26 Multiple joint Osteoarthritis pain Physician documentation 03/28 Acute hypoxic Respiratory failure TREATMENTS: JUN 18 IV Levaquin JUN 18 IV Rocephin JUN 18 IV Vancomycin Nephrology Consult 03/26 Matt Martínez Obi Procedure note 03/27 Hip joint aspiration Procedure note 03/27 Hip joint aspiration Operative report 03/28 Revision of Right hip Arthroplasty (This form is maintained as a part of the permanent medical record) 2014 [employer] [place] [employer]. All Rights Reserved [email or web address] [not provided] MTDD
== END 2019-04-05 15:58 | DRG 466 ==
LOC: ERS 22:01 → 2NO 03-26 01:33 → IMCU/EMU 03-28 11:20 → CCU 03-28 16:24 → SURG B 03-30 11:10
PROVIDERS: ADMIT Internal Medicine; ATTEND Internal Medicine
PROC: 0S993ZX Drainage of Right Hip Joint, Percutaneous Approach, Diagnostic (ICD-10-PCS; 2019-03-27)
PROC: 0SRR0J9 Replacement of Right Hip Joint, Femoral Surface with Synthetic Substitute, Cemented, Open Approach (ICD-10-PCS; principal; 2019-03-28)
PROC: 0SPR0JZ Removal of Synthetic Substitute from Right Hip Joint, Femoral Surface, Open Approach (ICD-10-PCS; 2019-03-28)
PROC: 0SH908Z Insertion of Spacer into Right Hip Joint, Open Approach (ICD-10-PCS; 2019-03-28)
PROC: 02HV33Z Insertion of Infusion Device into Superior Vena Cava, Percutaneous Approach (ICD-10-PCS; 2019-03-28)
PROC: B548ZZA Ultrasonography of Superior Vena Cava, Guidance (ICD-10-PCS; 2019-03-28)
PROC: 3E043XZ Introduction of Vasopressor into Central Vein, Percutaneous Approach (ICD-10-PCS; 2019-03-28)
DX: T84.51XA Infection and inflammatory reaction due to internal right hip prosthesis, initial encounter (principal); J18.9 Pneumonia, unspecified organism; J96.01 Acute respiratory failure with hypoxia; R65.21 Severe sepsis with septic shock; G93.41 Metabolic encephalopathy; A40.8 Other streptococcal sepsis; M00.251 Other streptococcal arthritis, right hip; N17.9 Acute kidney failure, unspecified; I50.22 Chronic systolic (congestive) heart failure; I13.0 Hypertensive heart and chronic kidney disease with heart failure and stage 1 through stage 4 chronic kidney disease, or unspecified chronic kidney disease; J44.0 Chronic obstructive pulmonary disease with (acute) lower respiratory infection; Z66 Do not resuscitate; I48.91 Unspecified atrial fibrillation; R79.89 Other specified abnormal findings of blood chemistry; K21.9 Gastro-esophageal reflux disease without esophagitis; M89.49 Other hypertrophic osteoarthropathy, multiple sites; I49.5 Sick sinus syndrome; G89.29 Other chronic pain; M54.9 Dorsalgia, unspecified; I25.5 Ischemic cardiomyopathy; N18.3 Chronic kidney disease, stage 3 (moderate); E86.0 Dehydration; I25.10 Atherosclerotic heart disease of native coronary artery without angina pectoris; Z77.090 Contact with and (suspected) exposure to asbestos; E86.9 Volume depletion, unspecified; F03.90 Unspecified dementia, unspecified severity, without behavioral disturbance, psychotic disturbance, mood disturbance, and anxiety; B95.4 Other streptococcus as the cause of diseases classified elsewhere; E87.6 Hypokalemia; Z79.01 Long term (current) use of anticoagulants; Z85.828 Personal history of other malignant neoplasm of skin; Z90.49 Acquired absence of other specified parts of digestive tract; Z95.810 Presence of automatic (implantable) cardiac defibrillator; Z79.899 Other long term (current) drug therapy; Z79.02 Long term (current) use of antithrombotics/antiplatelets; Z95.3 Presence of xenogenic heart valve; Z87.891 Personal history of nicotine dependence; Y83.1 Surgical operation with implant of artificial internal device as the cause of abnormal reaction of the patient, or of later complication, without mention of misadventure at the time of the procedure
CPT/HCPCS: 20610; 36415; 36416; 36569; 71045; 71275; 77002; 80048; 80053; 80069; 80202; 81001; 81003; 81015; 82550; 82553; 82565; 82570; 82805; 82945; 83605; 83735; 83880; 84145; 84156; 84157; 84300; 84484; 84540; 85007; 85014; 85018; 85025; 85027; 85049; 85060; 85652; 86140; 87040; 87070; 87077; 87086; 87186; 87205; 87804; 89051; 93005; 94002; 94003; 96361; 96365; 96367; C1713; C1751; C1776; J0696; J1644; J1956; J2060; J2270; J2405; J2543; J2704; J3010; J3260; J3370; J3475; J3486; J3490; J7050; Q0163